=== PATIENT | female | born 1945 | race Caucasian/White ===

== ENCOUNTER → 2020-11-20 09:21 | Outpatient (BNVA) | payer MEDICARE, SELFPAY | PROVIDERS: PCP Internal Medicine; Visit Provider Urology | DX: R31.29 Other microscopic hematuria (principal) | CPT/HCPCS: 99212 ==

== ENCOUNTER 2020-11-22 09:57 | Outpatient (REF) | payer MEDICARE, SELFPAY ==
[2020-11-22 10:00] LABS: MANUAL DIFF FLAG NO
[2020-11-22 10:14] LABS: Basophils Absolute Auto 0.1 X10*3/uL (0.0-0.2); Basophils Percent Auto 1.4 % (0-2); Eosinophils Absolute Auto 0.2 X10*3/uL (0.0-0.4); Eosinophils Percent Auto 2.9 % (0-4); Hematocrit 39.4 % (37-47); Hemoglobin 12.5 g/dl (12.0-16.0); Imm Gran Abs Auto 0.02 X10*3/uL (0.00-0.03); Imm Gran Pct Auto 0.3 % (0.0-0.4); Lymphocytes Absolute Auto 2.3 X10*3/uL (1.2-4.9); Lymphocytes Percent Auto 32.3 % (20-40); Mean Corpuscular HGB Conc 31.7 g/dl (31.0-35.0); Mean Corpuscular Hemoglobin 31.7 pg (27.0-33.0); Mean Platelet Volume 10.5 fL (9.4-12.3); Monocytes Absolute Auto 0.5 X10*3/uL (0.1-1.2); Monocytes Percent Auto 6.8 % (2-11); Neutrophils Absolute Auto 4.1 X10*3/uL (2.0-8.3); Neutrophils Percent Auto 56.3 % (45-73); Platelet Count 237 X10*3/uL (160-400); Red Blood Count 3.94 X10*6/uL (4.20-5.50); Red Cell Distribution Width 12.9 % (11.0-16.0); White Blood Count 7.3 X10*3/uL (4.8-10.8)
[2020-11-22 10:17] LABS: Estimated Average Glucose 111 mg/dL; Hemoglobin A1c % 5.5 %
[2020-11-22 10:39] LABS: Creatinine Urine 140.66 mg/dL; Microalbum/Creatinine Ratio Ur 16.3 ug/mg cr
[2020-11-22 10:44] LABS: Alanine Aminotransferase 13 U/L (0-31); Albumin Level 4.1 g/dL (3.5-5.0); Alkaline Phosphatase 57 U/L (39-117); Anion Gap 13 (12-20); Aspartate Amino Transferase 16 U/L (5-31); Bilirubin Total 0.5 mg/dL (0.0-1.0); Blood Urea Nitrogen 32 mg/dL (9-16); Calcium 9.7 mg/dL (8.4-10.2); Carbon Dioxide 26 mmol/L (22-29); Chloride 110 mmol/L (96-108); Cholesterol 157 mg/dL; Estimated Glomerular Filt Rate 57; Glucose Fasting 114 mg/dL (60-99); HDL Cholesterol 47 mg/dL; LDL Cholesterol Calculated 84 mg/dl; Sodium 145 mmol/L (135-145); Total Protein 6.7 g/dL (6.5-8.0); Triglycerides 130 mg/dL
[2020-11-22 11:31] LABS: Reflex LDLD? No
== END 2020-11-22 09:58 | disposition home or self-care (01) ==
LOC: HO.LNP 09:57
PROVIDERS: Visit Provider Internal Medicine
DX: E78.00 Pure hypercholesterolemia, unspecified (principal); I10 Essential (primary) hypertension; R73.09 Other abnormal glucose; M85.80 Other specified disorders of bone density and structure, unspecified site
CPT/HCPCS: 80053; 80061; 82043; 83036; 85025

== ENCOUNTER 2020-12-27 10:23 | Outpatient (REF) | payer MEDICARE, SELFPAY ==
[2020-12-27 11:16] LABS: Blood Urea Nitrogen 22 mg/dL (9-16); Estimated Glomerular Filt Rate > 60
== END 2020-12-27 10:24 | disposition home or self-care (01) ==
LOC: HO.LNP 10:23
PROVIDERS: Visit Provider Internal Medicine
DX: R79.9 Abnormal finding of blood chemistry, unspecified (principal)
CPT/HCPCS: 82565; 84520

== ENCOUNTER 2021-02-20 08:13 | Outpatient (REF) | payer MEDICARE, SELFPAY ==
--- NOTE | ~2021-02-20 | MM_ITS ---
EXAMINATION: MM SCREENING DIGITAL BREAST TOMOSYNTHESIS, BILATERAL CLINICAL INFORMATION: Screening. Asymptomatic. The lifetime risk of breast cancer based on the Tyrer-Cuzick Model is 2%. COMPARISON: Mammography: 11/05/2018, 10/19/2017, 10/10/2016 TECHNIQUE: Digital breast tomosynthesis is performed in both the craniocaudal and mediolateral oblique views along with computer-aided detection (CAD). Synthesized 2D images are generated from the tomosynthesis. FINDINGS: There are scattered areas of fibroglandular density (ACR BI-RADS breast composition Category b). There are no significant masses, abnormal calcifications, or other abnormalities. There are numerous dermal lesions again seen overlying the posterior inferior breasts, the 2 largest again noted posterior outer inferior left breast. There are no architectural abnormalities. Scattered bilateral vascular and some punctate round density rim and dermal calcifications are again noted. No significant changes. MM/MM tomosynthesis screening BI IMPRESSION: No significant changes from prior exams. ASSESSMENT: BI-RADS 2: Benign RECOMMENDATION: Routine annual mammography screening. This patient's information was entered into a reminder system with a target due date for their next mammogram.
--- NOTE | ~2021-02-20 | MM_ITS ---
EXAMINATION: BONE DENSITOMETRY CLINICAL INDICATION: Osteopenia. COMPARISON: Previous BD dated 05/22/2017 and baseline BD dated 05/17/2010. TECHNIQUE: Using a Atooma DXA System (software version: 13.1) manufactured by [employer], dual-energy x-ray absorptiometry was performed of the lumbar spine and left hip. The images are of good technical quality. Summary results are attached. FINDINGS: AP SPINE L1-L4: Current: BMD 1.229 g/cm2, Z-score 2.1, T-score 0.4, normal, 0.5% increase from previous, 5.6% increase from baseline (<5% change is not significant). Prior: BMD 1.223 g/cm2. Baseline: BMD 1.164 g/cm2. LEFT FEMUR, NECK: Current: BMD 0.752 g/cm2, Z-score -0.1, T-score -2.1, osteopenia. Prior: BMD 0.772 g/cm2. Baseline: BMD 0.762 g/cm2. LEFT FEMUR, TOTAL: Current: BMD 0.927 g/cm2, Z-score 1.1, T-score -0.6, normal, 0.1% increase from previous, 0.2% increase from baseline (<5% change is not significant). Prior: BMD 0.926 g/cm2. Baseline: BMD 0.925 g/cm2. IDENTIFIED RISK FACTORS: Height loss, menopause, hysterectomy, bilateral oophorectomy. HISTORY OF FRACTURE: None listed. MEDICATIONS: Calcium supplements or multivitamin, vitamin D. MM/XR DEXA axial skeleton IMPRESSION: 1. DIAGNOSIS: Osteopenia based on the lowest T-score value of -2.1 in the femoral neck applying World Health Organization criteria. 2. 10-YEAR FRACTURE RISK PREDICTION, FRAX: Major osteoporotic fracture (clinical spine, forearm, hip or shoulder) 14.2%. Hip fracture 3.9%. 3. Treatment Recommendations: NOF guidelines recommend consideration for treatment in postmenopausal women and men age 50 and older presenting with the following: -A hip or vertebral (clinical or morphometric) fracture. -T-score less than or equal to -2.5 at the femoral neck or spine after appropriate evaluation to exclude secondary causes. -Low bone mass at the hip or spine and a 10-year fracture probability by FRAX of greater than or equal to 3% for hip fracture or greater than or equal to 20% for major osteoporotic fracture based on the [place] adapted WHO algorithm. 4. Other Recommendations: All treatment decisions require clinical judgment and consideration of individual patient factors, including patient preferences, comorbidities, previous drug use, risk factors not captured in the FRAX model (e.g. frailty, falls, vitamin D deficiency, increased bone turnover, interval significant decline in bone density) and possible under or overestimation of fracture risk by FRAX. Additional medical evaluation for secondary cause of low bone mineral density may be appropriate. FUTURE SCAN RECOMMENDATION: People with diagnosed cases of osteoporosis or at high risk for fracture should have regular bone mineral density tests. For patients eligible for Medicare, routine testing is allowed once every 2 years. The testing frequency can be increased to one year for patients who have rapidly progressing disease, those who are receiving or discontinuing medical therapy to restore bone mass, or have additional risk factors.
== END 2021-02-20 08:14 | disposition home or self-care (01) ==
LOC: HO.MAMMO 08:13
PROVIDERS: PCP Internal Medicine; Visit Provider Internal Medicine
DX: Z13.820 Encounter for screening for osteoporosis (principal); Z78.0 Asymptomatic menopausal state; M85.89 Other specified disorders of bone density and structure, multiple sites; R79.89 Other specified abnormal findings of blood chemistry; Z12.31 Encounter for screening mammogram for malignant neoplasm of breast; Z90.710 Acquired absence of both cervix and uterus; Z90.722 Acquired absence of ovaries, bilateral
CPT/HCPCS: 77063; 77067; 77080

== ENCOUNTER 2021-05-17 10:06 | Outpatient (REF) | payer MEDICARE, SELFPAY ==
[2021-05-17 10:47] LABS: Alanine Aminotransferase 16 U/L (0-31); Albumin Level 4.1 g/dL (3.5-5.0); Alkaline Phosphatase 59 U/L (39-117); Aspartate Amino Transferase 16 U/L (5-31); Bilirubin Direct 0.2 mg/dL (0.0-0.5); Bilirubin Total 0.3 mg/dL (0.0-1.0); Cholesterol 162 mg/dL; Glucose Fasting 124 mg/dL (60-99); HDL Cholesterol 46 mg/dL; LDL Cholesterol Calculated 86 mg/dl; Total Protein 6.8 g/dL (6.5-8.0); Triglycerides 154 mg/dL
[2021-05-17 11:11] LABS: Reflex LDLD? No
[2021-05-17 14:00] LABS: Estimated Average Glucose 111 mg/dL; Hemoglobin A1c % 5.5 %
== END 2021-05-17 10:07 | disposition home or self-care (01) ==
LOC: HO.LNP 10:06
PROVIDERS: Visit Provider Internal Medicine
DX: R73.03 Prediabetes (principal); E78.00 Pure hypercholesterolemia, unspecified
CPT/HCPCS: 80061; 80076; 82947; 83036

== ENCOUNTER 2021-05-24 10:56 | Outpatient (REF) | payer MEDICARE, SELFPAY ==
[2021-05-24 11:16] LABS: Blood Urea Nitrogen 21 mg/dL (9-16); Estimated Glomerular Filt Rate 57
== END 2021-05-24 10:57 | disposition home or self-care (01) ==
LOC: HO.LNP 10:56
PROVIDERS: PCP Internal Medicine; Visit Provider Internal Medicine
DX: R79.9 Abnormal finding of blood chemistry, unspecified (principal)
CPT/HCPCS: 82565; 84520

== ENCOUNTER 2021-10-07 13:45 | Outpatient (REF) | payer MEDICARE, SELFPAY ==
--- NOTE | ~2021-10-07 | US_ITS ---
EXAMINATION: US RETROPERITONEAL LIMITED (RENAL ONLY) CLINICAL INFORMATION: Other microscopic hematuria. COMPARISON: Renals only ultrasound dated 11/04/2016. CT abdomen and pelvis with by mouth contrast only dated 12/04/2010. TECHNIQUE: Real-time imaging of the kidneys. FINDINGS: RIGHT KIDNEY: 10.0 x 3.7 x 3.5 cm (SAG x AP x TRV). The kidney is normal in size, contour, and echogenicity. Renal cortical thickness is normal. No calculi or focal parenchymal lesions. No hydronephrosis. LEFT KIDNEY: 10.0 x 4.4 x 4.0 cm (SAG x AP x TRV). The kidney is normal in size, contour, and echogenicity. Renal cortical thickness is normal. No calculi or focal parenchymal lesions. No hydronephrosis. US/US retroperitoneal limited IMPRESSION: Unremarkable renal ultrasound.
== END 2021-10-07 13:46 | disposition home or self-care (01) ==
LOC: HO.US 13:45
PROVIDERS: Visit Provider Urology
DX: R31.29 Other microscopic hematuria (principal)
CPT/HCPCS: 76775

== ENCOUNTER 2021-11-19 09:09 | Outpatient (REF) | payer MEDICARE, SELFPAY ==
[2021-11-19 16:55] LABS: Urine Cytology See Pathology rpt
== END 2021-11-19 09:10 | disposition home or self-care (01) ==
LOC: HO.LAB 09:09
PROVIDERS: Visit Provider Urology
DX: R31.29 Other microscopic hematuria (principal)
CPT/HCPCS: 88112; 99212

== ENCOUNTER 2021-11-22 11:12 | Outpatient (REF) | payer MEDICARE, SELFPAY ==
[2021-11-22 11:14] LABS: MANUAL DIFF FLAG NO
[2021-11-22 11:26] LABS: Basophils Absolute Auto 0.1 X10*3/uL (0.0-0.2); Basophils Percent Auto 1.3 % (0-2); Eosinophils Absolute Auto 0.2 X10*3/uL (0.0-0.4); Eosinophils Percent Auto 2.2 % (0-4); Hematocrit 37.6 % (37.0-47.0); Hemoglobin 11.8 g/dl (12.0-16.0); Imm Gran Abs Auto 0.01 X10*3/uL (0.00-0.03); Imm Gran Pct Auto 0.1 % (0.0-0.4); Lymphocytes Absolute Auto 2.5 X10*3/uL (1.2-4.9); Lymphocytes Percent Auto 32.1 % (20-40); Mean Corpuscular HGB Conc 31.4 g/dl (31.0-35.0); Mean Corpuscular Hemoglobin 31.2 pg (27.0-33.0); Mean Corpuscular Volume 99.5 fL (80.0-98.0); Mean Platelet Volume 10.6 fL (9.4-12.3); Monocytes Absolute Auto 0.6 X10*3/uL (0.1-1.2); Monocytes Percent Auto 7.5 % (2-11); Neutrophils Absolute Auto 4.4 x10*3/uL (2.0-8.3); Neutrophils Percent Auto 56.8 % (45-73); Platelet Count 217 X10*3/uL (160-400); Red Blood Count 3.78 X10*6/uL (4.20-5.50); Red Cell Distribution Width 12.9 % (11.0-16.0); White Blood Count 7.8 X10*3/uL (4.8-10.8)
[2021-11-22 11:32] LABS: Appearance Urine CLEAR; Color Urine YELLOW; Glucose Urine UA NEG (NEG); Leukocyte Esterase Urine 1+ (NEG); Nitrite Urine NEG (NEG); Urine Blood 1+ (NEG); Urine Ketones NEG (NEG); Urine Protein NEG (NEG-TRACE)
[2021-11-22 11:43] LABS: Alanine Aminotransferase 13 U/L (0-31); Albumin Level 4.2 g/dL (3.5-5.0); Alkaline Phosphatase 49 U/L (39-117); Anion Gap 12 (12-20); Aspartate Amino Transferase 15 U/L (5-31); Bilirubin Total 0.4 mg/dL (0.0-1.0); Blood Urea Nitrogen 18 mg/dL (9-16); Calcium 9.8 mg/dL (8.4-10.2); Carbon Dioxide 24 mmol/L (22-29); Chloride 110 mmol/L (96-108); Cholesterol 167 mg/dL; Estimated Glomerular Filt Rate 51; Glucose Fasting 114 mg/dL (60-99); HDL Cholesterol 47 mg/dL; LDL Cholesterol Calculated 85 mg/dl; Potassium 4.1 mmol/L (3.3-5.1); Sodium 142 mmol/L (135-145); Total Protein 6.7 g/dL (6.5-8.0); Triglycerides 179 mg/dL
[2021-11-22 12:00] LABS: Bacteria Urine TRACE /LPF; Creatinine Urine 30.36 mg/dL; Microalbum/Creatinine Ratio Ur 16.4 ug/mg cr; WBC Clumps Urine NOTED
[2021-11-22 12:06] LABS: Estimated Average Glucose 108 mg/dL; Hemoglobin A1c % 5.4 %
== END 2021-11-22 11:13 | disposition home or self-care (01) ==
LOC: HO.LNP 11:12
PROVIDERS: PCP Internal Medicine; Visit Provider Internal Medicine
DX: R73.03 Prediabetes (principal); I10 Essential (primary) hypertension; E78.00 Pure hypercholesterolemia, unspecified
CPT/HCPCS: 80053; 80061; 81001; 82043; 83036; 85025

== ENCOUNTER 2022-04-10 08:56 | Outpatient (REF) | payer MEDICARE, SELFPAY ==
--- NOTE | ~2022-04-10 | MM_ITS ---
EXAMINATION: MM SCREENING DIGITAL BREAST TOMOSYNTHESIS, BILATERAL CLINICAL INFORMATION: Screening. Asymptomatic. COMPARISON: Mammography: 02/20/2021, 11/05/2018, 10/19/2017 TECHNIQUE: Digital breast tomosynthesis is performed in both the craniocaudal and mediolateral oblique views along with computer-aided detection (CAD). Synthesized 2D images are generated from the tomosynthesis. FINDINGS: There are scattered areas of fibroglandular density (ACR BI-RADS breast composition Category b). There are no significant masses, abnormal calcifications, or other abnormalities. Parenchymal pattern is similar to prior studies. There are scattered moles again seen overlying both breasts, the 2 largest are posterior outer left breast. The axilla are unremarkable. There are no significant changes from prior studies. MM/MM tomosynthesis screening BI IMPRESSION: No mammographic evidence of malignancy. ASSESSMENT: BI-RADS 2: Benign RECOMMENDATION: Routine annual mammography screening. This patient's information was entered into a reminder system with a target due date for their next mammogram.
== END 2022-04-10 08:57 | disposition home or self-care (01) ==
LOC: HO.MAMMO 08:56
PROVIDERS: PCP Internal Medicine; Visit Provider Internal Medicine
DX: Z12.31 Encounter for screening mammogram for malignant neoplasm of breast (principal)
CPT/HCPCS: 77063; 77067

== ENCOUNTER 2022-05-26 11:16 | Outpatient (REF) | payer MEDICARE, SELFPAY ==
[2022-05-26 11:57] LABS: Alanine Aminotransferase 15 U/L (0-31); Albumin Level 4.1 g/dL (3.5-5.0); Alkaline Phosphatase 58 U/L (39-117); Aspartate Amino Transferase 15 U/L (5-31); Bilirubin Direct 0.2 mg/dL (0.0-0.5); Bilirubin Total 0.5 mg/dL (0.0-1.0); Cholesterol 153 mg/dL; Glucose Fasting 118 mg/dL (60-99); HDL Cholesterol 51 mg/dL; LDL Cholesterol Calculated 81 mg/dl; Total Protein 6.4 g/dL (6.5-8.0); Triglycerides 109 mg/dL
[2022-05-26 12:11] LABS: Estimated Average Glucose 108 mg/dL; Hemoglobin A1c % 5.4 %
[2022-05-26 13:34] LABS: Reflex LDLD? No
== END 2022-05-26 11:17 | disposition home or self-care (01) ==
LOC: HO.LNP 11:16
PROVIDERS: Visit Provider Internal Medicine
DX: R73.03 Prediabetes (principal); E78.00 Pure hypercholesterolemia, unspecified
CPT/HCPCS: 80061; 80076; 82947; 83036

== ENCOUNTER 2022-11-27 10:49 | Outpatient (REF) | payer MEDICARE, SELFPAY ==
[2022-11-27 10:58] LABS: MANUAL DIFF FLAG NO
[2022-11-27 11:40] LABS: Basophils Absolute Auto 0.1 X10*3/uL (0.0-0.2); Basophils Percent Auto 1.2 % (0-2); Eosinophils Absolute Auto 0.2 X10*3/uL (0.0-0.4); Eosinophils Percent Auto 2.6 % (0-4); Hematocrit 37.1 % (37.0-47.0); Hemoglobin 11.8 g/dl (12.0-16.0); Imm Gran Abs Auto 0.03 X10*3/uL (0.00-0.03); Imm Gran Pct Auto 0.4 % (0.0-0.4); Lymphocytes Absolute Auto 1.9 X10*3/uL (1.2-4.9); Lymphocytes Percent Auto 25.3 % (20-40); Mean Corpuscular HGB Conc 31.8 g/dl (31.0-35.0); Mean Corpuscular Hemoglobin 31.4 pg (27.0-33.0); Mean Corpuscular Volume 98.7 fL (80.0-98.0); Mean Platelet Volume 10.5 fL (9.4-12.3); Monocytes Absolute Auto 0.6 X10*3/uL (0.1-1.2); Monocytes Percent Auto 8.2 % (2-11); Neutrophils Absolute Auto 4.8 x10*3/uL (2.0-8.3); Neutrophils Percent Auto 62.3 % (45-73); Platelet Count 228 X10*3/uL (160-400); Red Blood Count 3.76 X10*6/uL (4.20-5.50); Red Cell Distribution Width 13.1 % (11.0-16.0); White Blood Count 7.6 X10*3/uL (4.8-10.8)
[2022-11-27 11:41] LABS: Appearance Urine Clear; Color Urine Yellow; Glucose Urine UA Negative (Negative); Leukocyte Esterase Urine Moderate (2+) (Negative); Nitrite Urine Negative (Negative); PH 5.5 (5.0-9.0); Specific Gravity - Urine 1.015 (1.005-1.025); UMIC TRIGGER UACC YES; Urine Blood Moderate (2+) (Negative); Urine Ketones Negative (Negative); Urine Protein Negative (Neg-Trace)
[2022-11-27 11:51] LABS: Alanine Aminotransferase 11 U/L (0-31); Alkaline Phosphatase 52 U/L (39-117); Anion Gap 14 (12-20); Aspartate Amino Transferase 16 U/L (5-31); Bilirubin Total 0.5 mg/dL (0.0-1.0); Blood Urea Nitrogen 26 mg/dL (9-16); Calcium 10.5 mg/dL (8.4-10.2); Carbon Dioxide 27 mmol/L (22-29); Chloride 108 mmol/L (96-108); Cholesterol 159 mg/dL; Estimated Average Glucose 108 mg/dL; Estimated Glomerular Filt Rate 57; Glucose Fasting 106 mg/dL (60-99); HDL Cholesterol 47 mg/dL; Hemoglobin A1c % 5.4 %; LDL Cholesterol Calculated 84 mg/dl; Potassium 4.2 mmol/L (3.3-5.1); Sodium 145 mmol/L (135-145); Total Protein 6.5 g/dL (6.5-8.0); Triglycerides 143 mg/dL
[2022-11-27 12:04] LABS: Bacteria Urine None Seen (None Seen); Hyaline Casts Urine 0-2 /LPF (0-2); Squamous Epithelial Cell Urine 0-2 /HPF (0-2); WBC Urine 0-5 /HPF (0-5)
[2022-11-27 12:34] LABS: Creatinine Urine 77.77 mg/dL; Microalbum/Creatinine Ratio Ur 14.1 ug/mg cr
== END 2022-11-27 10:50 | disposition home or self-care (01) ==
LOC: HO.LNP 10:49
PROVIDERS: Visit Provider Internal Medicine
DX: R73.03 Prediabetes (principal); I10 Essential (primary) hypertension; E78.00 Pure hypercholesterolemia, unspecified
CPT/HCPCS: 80053; 80061; 81001; 82043; 83036; 85025

== ENCOUNTER 2022-12-01 10:55 | Outpatient (REF) | payer MEDICARE, SELFPAY ==
[2022-12-01 11:24] LABS: Calcium 10.1 mg/dL (8.4-10.2)
== END 2022-12-01 10:56 | disposition home or self-care (01) ==
LOC: HO.LNP 10:55
PROVIDERS: Visit Provider Internal Medicine
DX: E83.52 Hypercalcemia (principal)
CPT/HCPCS: 82310

== ENCOUNTER 2023-04-16 08:38 | Outpatient (REF) | payer MEDICARE, SELFPAY | END 2023-04-16 08:39 | disposition home or self-care (01) | LOC: HO.MAMMO 08:38 | PROVIDERS: PCP Internal Medicine; Visit Provider Internal Medicine | DX: Z12.31 Encounter for screening mammogram for malignant neoplasm of breast (principal) | CPT/HCPCS: 77063; 77067 ==

== ENCOUNTER → 2023-04-16 09:00 | Outpatient (BNV) | payer MEDICARE, SELFPAY | PROVIDERS: PCP Internal Medicine; Visit Provider Radiology Diagnostic Radiology | DX: Z12.31 Encounter for screening mammogram for malignant neoplasm of breast (principal) | CPT/HCPCS: 77063; 77067 ==

== ENCOUNTER 2023-05-22 10:36 | Outpatient (REF) | payer MEDICARE, SELFPAY ==
[2023-05-22 11:28] LABS: Alanine Aminotransferase 14 U/L (0-31); Albumin Level 4.1 g/dL (3.5-5.0); Alkaline Phosphatase 55 U/L (39-117); Aspartate Amino Transferase 19 U/L (5-31); Bilirubin Direct 0.2 mg/dL (0.0-0.5); Bilirubin Total 0.4 mg/dL (0.0-1.0); Cholesterol 145 mg/dL (<200); Glucose Fasting 108 mg/dL (60-99); HDL Cholesterol 50 mg/dL (>40); LDL Cholesterol Calculated 79 mg/dL (<100); Triglycerides 82 mg/dL (<150)
[2023-05-22 11:36] LABS: Estimated Average Glucose 111 mg/dL; Hemoglobin A1c % 5.5 % (<6.0)
[2023-05-22 11:55] LABS: Reflex LDLD? No
== END 2023-05-22 10:37 | disposition home or self-care (01) ==
LOC: HO.LNP 10:36
PROVIDERS: Visit Provider Internal Medicine
DX: R73.09 Other abnormal glucose (principal)
CPT/HCPCS: 80061; 80076; 82947; 83036

== ENCOUNTER 2023-11-30 11:34 | Outpatient (REF) | payer MEDICARE, SELFPAY ==
[2023-11-30 11:37] LABS: MANUAL DIFF FLAG NO
[2023-11-30 11:42] LABS: Basophils Absolute Auto 0.1 X10*3/uL (0.0-0.2); Basophils Percent Auto 1.4 % (0-2); Eosinophils Absolute Auto 0.2 X10*3/uL (0.0-0.4); Eosinophils Percent Auto 2.6 % (0-4); Hematocrit 35.2 % (37.0-47.0); Hemoglobin 11.7 g/dl (12.0-16.0); Imm Gran Abs Auto 0.02 X10*3/uL (0.00-0.03); Imm Gran Pct Auto 0.3 % (0.0-0.4); Lymphocytes Absolute Auto 1.9 X10*3/uL (1.2-4.9); Lymphocytes Percent Auto 27.3 % (20-40); Mean Corpuscular HGB Conc 33.2 g/dl (31.0-35.0); Mean Corpuscular Hemoglobin 32.3 pg (27.0-33.0); Mean Corpuscular Volume 97.2 fL (80.0-98.0); Monocytes Absolute Auto 0.6 X10*3/uL (0.1-1.2); Monocytes Percent Auto 8.7 % (2-11); Neutrophils Absolute Auto 4.1 x10*3/uL (2.0-8.3); Neutrophils Percent Auto 59.7 % (45-73); Platelet Count 237 X10*3/uL (160-400); Red Blood Count 3.62 X10*6/uL (4.20-5.50); Red Cell Distribution Width 13.2 % (11.0-16.0); White Blood Count 6.9 X10*3/uL (4.8-10.8)
[2023-11-30 11:52] LABS: Alanine Aminotransferase 15 U/L (0-31); Albumin Level 4.1 g/dL (3.5-5.0); Alkaline Phosphatase 49 U/L (39-117); Anion Gap 15 (12-20); Aspartate Amino Transferase 17 U/L (5-31); Bilirubin Total 0.5 mg/dL (0.0-1.0); Blood Urea Nitrogen 25 mg/dL (9-16); Calcium 10.7 mg/dL (8.4-10.2); Carbon Dioxide 23 mmol/L (22-29); Chloride 110 mmol/L (96-108); Cholesterol 164 mg/dL (<200); Estimated Glomerular Filt Rate 52; Glucose Fasting 111 mg/dL (60-99); HDL Cholesterol 46 mg/dL (>40); LDL Cholesterol Calculated 90 mg/dL (<100); Potassium 4.1 mmol/L (3.3-5.1); Sodium 144 mmol/L (135-145); Triglycerides 142 mg/dL (<150)
[2023-11-30 12:10] LABS: Appearance Urine Clear; Color Urine Yellow; Glucose Urine UA Negative (Negative); Leukocyte Esterase Urine Moderate (2+) (Negative); Nitrite Urine Negative (Negative); PH 5.5 (5.0-9.0); Specific Gravity - Urine 1.015 (1.005-1.025); UMIC TRIGGER UACC YES; Urine Blood Small (1+) (Negative); Urine Ketones Negative (Negative); Urine Protein Negative (Neg-Trace)
[2023-11-30 12:29] LABS: Bacteria Urine None Seen (None Seen); Hyaline Casts Urine 0-2 /LPF (0-2); RBC Urine 0-2 /HPF (0-2); Squamous Epithelial Cell Urine 0-2 /HPF (0-2); WBC Urine 0-5 /HPF (0-5)
== END 2023-11-30 11:35 | disposition home or self-care (01) ==
LOC: HO.LNP 11:34
PROVIDERS: Visit Provider Internal Medicine
DX: R73.09 Other abnormal glucose (principal); E78.00 Pure hypercholesterolemia, unspecified; I10 Essential (primary) hypertension
CPT/HCPCS: 80053; 80061; 81001; 85025

== ENCOUNTER 2023-12-07 15:31 | Outpatient (REF) | payer MEDICARE, SELFPAY ==
[2023-12-07 16:15] LABS: TSH reflex Free T4 1.89 uIU/mL (0.32-4.0)
== END 2023-12-07 15:32 | disposition home or self-care (01) ==
LOC: HO.LNP 15:31
PROVIDERS: Visit Provider Internal Medicine
DX: R53.83 Other fatigue (principal)
CPT/HCPCS: 84443

== ENCOUNTER 2024-04-21 08:07 | Outpatient (REF) | payer MEDICARE, SELFPAY ==
--- NOTE | ~2024-04-21 | MM_ITS ---
EXAMINATION: MM SCREENING DIGITAL BREAST TOMOSYNTHESIS, BILATERAL CLINICAL INFORMATION: Screening. Asymptomatic. COMPARISON: Mammography: Comparison is made with available priors TECHNIQUE: Digital breast mammography with tomosynthesis is performed in both the craniocaudal and mediolateral oblique views along with computer-aided detection (CAD). FINDINGS: There are scattered areas of fibroglandular density (ACR BI-RADS breast composition Category b). There are no significant masses, abnormal calcifications, or other abnormalities. MM/MM tomosynthesis screening BI IMPRESSION: No mammographic evidence of malignancy. ASSESSMENT: BI-RADS BI-RADS 1 - Negative RECOMMENDATION: Routine annual mammography screening. 1 year F/U This examination should not preclude the clinical evaluation of a suspicious palpable abnormality. This patient's information was entered into a reminder system with a target due date for their next mammogram. Electronically signed by: Anneliese Garcia DO 04/29/2024 09:14 AM NICOLE
== END 2024-04-21 08:08 | disposition home or self-care (01) ==
LOC: HO.MAMMO 08:07
PROVIDERS: PCP Internal Medicine; Visit Provider Internal Medicine
DX: Z12.31 Encounter for screening mammogram for malignant neoplasm of breast (principal)
CPT/HCPCS: 77063; 77067

== ENCOUNTER → 2024-04-21 08:30 | Outpatient (BNV) | payer MEDICARE, SELFPAY | PROVIDERS: PCP Internal Medicine; Visit Provider Internal Medicine | DX: Z12.31 Encounter for screening mammogram for malignant neoplasm of breast (principal) | CPT/HCPCS: 77063; 77067 ==

== ENCOUNTER 2024-06-10 11:02 | Outpatient (REF) | payer MEDICARE, SELFPAY ==
[2024-06-10 11:50] LABS: Alanine Aminotransferase 18 U/L (0-31); Albumin Level 3.9 g/dL (3.5-5.0); Alkaline Phosphatase 54 U/L (39-117); Aspartate Amino Transferase 26 U/L (5-31); Bilirubin Direct 0.1 mg/dL (0.0-0.5); Bilirubin Total 0.4 mg/dL (0.0-1.0); Blood Urea Nitrogen 26 mg/dL (9-16); Cholesterol 157 mg/dL (<200); Estimated Glomerular Filt Rate 40; HDL Cholesterol 45 mg/dL (>40); LDL Cholesterol Calculated 89 mg/dL (<100); Total Protein 6.6 g/dL (6.5-8.0); Triglycerides 118 mg/dL (<150)
--- OUTSIDE RECORDS SUMMARY | 2024-06-10 12:52 | XMS_ITS ---
Author Organization Ruddy Solorio MD Address [address] [place] [phone] Care Team Providers Care Construction Carpenter Name Role Phone Ruddy Solorio Primary Care Provider ALLERGIES No Known Allergies RESULTS Component Value Reference Range Notes TSH reflex Free T4 Reviewed date:12/08/2023 12:45:58 PM Interpretation: Performing Lab:[facility], [address] [place] [phone] Notes/Report: TSH reflex Free T4 1.89 0.32-4.0 uIU/mL REASON FOR VISIT review labs, c/o neck pain x 1 month and fatigue MEDICATIONS Medication SIG (Take, Route, Fr equency, Duration) Notes Start Date End Date Status Ibuprofen 800 MG 1 tablet with food o r milk Orally Three times a day for 30 day(s) 01/19/2017 Not-Taking Simvastatin 20 MG 1 tablet every eveni ng Orally Once a day for 90 days Active SOCIAL HISTORY Tobacco Use: Social History Observation Description Date Details (start date - stop date) Never Smoker NA - NA Sex Assigned At : Social History Observation Description Sex Assigned At Unknown Tobacco Use/Smoking Question Answer Notes Patient is a nonsmoker Additional Findings: Tobacco Non-User Cu rrent non-smoker, currently using no form of tobacco Alcohol Screen Question Answer Notes Did you have a drink containing alcohol in the p ast year? No Points 0 Interpretation Negative VITAL SIGNS BMI 29.68 kg/m2 12/07/2023 Blood pressure systolic 152 mm Hg 12/07/19 24 Blood pressure diastolic 60 mm Hg 024 Height 60 in 12/07/2023 Weight 152 lbs 12/07/2023 weight is up 2 pounds since 05-28-23 Encounters Encounter Location Date Provider Diagnosis Ruddy Solorio MD [address] [place] [address] [place] [phone] 12/07/2023 Ruddy Solorio History of hematuria Z87.448 ; Essential hypertension I10 ; Hypercalcemia E83.52 and Lethargy R53.83 ASSESSMENTS Encounter Date Diagnosis Assessment Notes Treatment Notes Treatment Clinical Notes 12/07/2023 History of hematuria (ICD-10 - Z87.448) has been evaluated in past 12/07/2023 Essential hypertension (ICD-10 - I10) doing well 12/07/2023 Hypercalcemia (ICD-1 0 - E83.52) stablde 12/07/2023 Lethargy (ICD-10 - R53.83) PLAN OF TREATMENT Treatment Notes Assessment Notes History of hematuria has been evaluated in past Essential hypertension doing well Hypercalcemia stablde Pending Test Test Name Order Date Blood Urea Nitrogen 12/07/2023 Creatinine 12/07/2023 Calcium 12/07/2023 Next Appt Details Follow Up: 6 Months, Reason: Provider Name:Ruddy bunn, 06/17/2024 10:45:00 AM, [address] [place] [address], [address] [place] [address], [phone], Provider Name:Ruddy bunn, 11/29/2024 07:30:00 AM, [address] [place] [address], [address], [phone], Provider Name:Ruddy bunn, 12/12/2024 10:30:00 AM, [address] [place] [address], [address], [phone], Progress Notes * Examination Category Sub-Category Detail Notes General Examination GENERAL APPEARANCE: alert, w ell [...] EXAM: no masses palpable, stool guaiac negative History and Physical Notes * HPI (History of Present Illness) Category Sub-Category Detail Notes Depression Screening PHQ-9 Little inte rest or [...] Have you had any falls with injury in the past year?: No Have you had two or more falls in the [facility] year?: No Communication Needs Communication Needs Does the patient have a hearing impairment: No Does the patient have a vision impairmen t?: Yes ?If yes, what is the vision impairment?: Glasses Does the patient have a cognition impair ment?: No
--- OUTSIDE RECORDS SUMMARY | 2024-06-10 12:52 | XMS_ITS ---
Author Organization Ruddy Solorio MD Address [address] [place] [phone] Care Team Providers Care General Activities Therapist Name Role Phone LyndseyMariselan Primary Care Provider [phone] REASON FOR VISIT fasting lipids, bun,creatine calcuim Encounters Encounter Location Date Provider Diagnosis uRddy Solorio MD [address] [place] [phone] 06/10/2024 Ruddy Solorio Essential hypertensi on I10 ; Hypercalcemia E83.52 and Pure hypercholesterolemia E78.00 ASSESSMENTS Encounter Date Diagnosis Assessment Notes Treatment Notes Treatment Clinical Notes 06/10/2024 Essential hypertensi on (ICD-10 - I10) 06/10/2024 Hypercalcemia (ICD-1 0 - E83.52) 06/10/2024 Pure hypercholestero lemia (ICD-10 - E78.00) PLAN OF TREATMENT Pending Test Test Name Order Date Liver Panel 06/10/2024 Lipid Panel with Reflex 06/10/2024 Blood Urea Nitrogen 06/10/2024 Creatinine 06/10/2024 Calcium 06/10/2024 Next Appt Details Provider Name:Ruddy Maxwellashanti bunn, 06/17/2024 10:45:00 AM, [address] [facility], [address], [place], [phone], Provider Name:Ruddy Nath Eve bunn, 11/29/2024 07:30:00 AM, [address] [facility], [address], [place], [phone], Provider Name:Ruddy Pham Eve bunn, 12/12/2024 10:30:00 AM, [address] [facility], [address], [place], [phone],
--- OUTSIDE RECORDS SUMMARY | 2024-06-10 12:53 | XMS_ITS | Patient Health Record ---
Author Organization Ruddy Solorio MD Address [address] [place] [phone] Care Team Providers Care Psychologist Chief Name Role Phone Lyndsey Ruddy Primary Care Provider ALLERGIES No Known Allergies RESULTS Component Value Reference Range Notes Complete Blood Count Auto Di ff Reviewed date:11/30/2023 05:16:33 PM Interpretation: Performing Lab:[facility], [address] [place] [phone] Notes/Report: White Blood Count 6.9 4.8-10.8 X10*3/uL [...] NRBC Abs Auto 0.000 0.0-0.012 X10*3/uL Comprehensive [place]. Panel Fa st Reviewed date:11/30/2023 05:20:31 PM Interpretation: Performing Lab:[facility], [address] [place] [phone] Notes/Report: Sodium 144 135-145 mmol/L Potassium 4.1 3.3-5.1 mmol/L Chloride 110 96-108 mmol/L Carbon Dioxide 23 22-29 mmol/L Anion Gap 15 12-20 Blood Urea Nitrogen 25 9-16 mg/dL Creatinine 1.03 0.5-1.4 mg/dL Estimated Glomerular Filt Rate 52 NOTE: For -Omani individuals, multiply the result by 1.210. Chronic [...] Panel Reviewed date:11/30/2023 05:12:14 PM Interpretation: Performing Lab:[facility], [address] [place] [phone] Notes/Report: Triglycerides 142 <150 mg/dL Desirable Triglyceride: [...] t Reviewed date:11/30/2023 05:18:22 PM Interpretation: Performing Lab:[facility], [address] [place] [phone] Notes/Report: Urine, Clean Catch Color Urine Yellow Appearance Urine Clear PH 5.5 5.0-9.0 Glucose Urine UA Negative Negative mg/dL Urine Blood Small (1+) Negative Specific [place] - Urine 1.015 1.005-1.025 Urine Protein Negative Neg-Trace mg/dL Urine Ketones Negative Negative mg/dL Nitrite Urine Negative Negative Leukocyte Esterase Urine Moderate (2+) Negative RBC Urine 0-2 0-2 /HPF WBC Urine 0-5 0-5 /HPF Squamous Epithelial Cell Urine 0-2 0-2 /HPF Bacteria Urine None Seen None Seen Hyaline Casts Urine 0-2 0-2 /LPF Hold Gold Reviewed date:12/07/2023 04:14:57 PM Interpretation: Performing Lab:[facility], [address] [place] [phone] Notes/Report: Hold Gold See Note Specimen held untested for 24 hours; Call to request Chemistry testing. TSH reflex Free T4 Reviewed date:12/08/2023 12:45:58 PM Interpretation: Performing Lab:[facility], [address] [place] [address] Notes/Report: TSH reflex Free T4 1.89 0.32-4.0 uIU/mL MM tomosynthesis screening B I Reviewed date:04/29/2024 04:46:48 PM Interpretation: Performing Lab: Notes/Report: [facility] [address] [place] [address] Mammography Report Signed Patient: Melia Hardin MR#: [id number] : 1945 Acct:[id number] Age/Sex: 79 / F ADM Date: 04/21/24 Loc: HO.MAMMO Attending Dr: Ruddy Solorio MD Ordering Physician: Ruddy Solorio MD Results: 1Ne gative Date of Service: 04/21/24 Follow Up: 1 Year From [facility] Mammogram Procedure(s): MM tomosynthesis screening BI Accession Number(s): [id number] cc: Ruddy Solorio MD EXAMINATION: MM SCREENING DIGITAL BREAST TOMOSYNTHESIS, BILATERAL CLINICAL INFORMATION: Screening. Asymptomatic. COMPARISON: Mammography: Comparison is made with available priors TECHNIQUE: Digital breast mammography with tomosynthesis is performed in both the craniocaudal and mediolateral oblique views along with computer-aided detection (CAD). FINDINGS: There are scattered areas of fibroglandular density (ACR BI-RADS breast composition Category b). There are no significant masses, abnormal calcifications, or other abnormalities. MM/MM tomosynthesis screening BI IMPRESSION: No mammographic evidence of malignancy. ASSESSMENT: BI-RADS BI-RADS 1 - Negative RECOMMENDATION: Routine annual mammography screening. 1 year F/U This examination should not preclude the clinical evaluation of a suspicious palpable abnormality. This patient's information was entered into a reminder system with a target due date for their next mammogram. Electronically signed by: Anneliese Garcia DO 04/29/2024 09:14 AM [facility] Dictated By: Anneliese Garcia DO Signed By: <Electronically signed by Anneliese Garcia DO in OV> 04/29/24913 DD/ 9 TD/TT: 04/21/24834 Copy Reader: Jean Santiago Reviewed date:06/10/2024 11:17:03 AM Interpretation: Performing Lab:[facility], [address] [place] [phone] Notes/Report: Jean Santiago See Note Specimen held untested for 24 hours; Call to request Chemistry testing. REASON FOR REFERRAL No Information MEDICATIONS Medication SIG (Take, Route, Fr equency, Duration) Notes Start Date End Date Status Ibuprofen 800 MG 1 tablet with food o r milk Orally Three times a day for 30 day(s) 01/19/2017 Not-Taking Simvastatin 20 MG 1 tablet every eveni ng Orally Once a day for 90 days Active IMMUNIZATIONS Vaccine Route Administration Date Status Comme nts Flu Vaccine IM Intramuscular 03/10/2011 Administered Flu Vaccine Unknown 03/03/2012 Administered [facility] PPSV23 (Pnemovax) Unknown 03/03/2012 Administered TDaP IM Intramuscular 07/05/2012 Administered Flu Vaccine IM Intramuscular 03/01/2013 [facility] 13 IM Intramuscular 08/22/2013 Administered Flu Vaccine IM Intramuscular 02/17/2014 Administered [facility] Fluarix Quadrivalent Unknown 02/17/2014 [facility] Shing[facility] Unknown 02/27/2013 Administered Flu Vaccine IM Intramuscular 03/09/2015 Administered pt re cieved high dose flu vaccine at [facility] Flu Vaccine IM Intramuscular 03/12/2016 Administered Fluarix Quadrivalent Unknown 03/30/2017 Administered [facility] PPSV23 (Pnemovax) IM Intramuscular 10/19/2017 Administered Flu Vaccine IM Intramuscular 02/22/2018 Administered Pt wa s given the high dose flu vaccine at [facility]. Fluarix Quadrivalent Unknown 03/14/2019 Administered [facility] Influenza High Dose Unknown 03/06/2020 Administered [facility] Covid Vaccine Unknown 09/12/2020 Administered [facility] SARS-COV-2 Pfizer Unknown 06/10/2021 Administered Influenza High Dose Unknown 03/05/2021 Administered Fluarix Quadrivalent Unknown 03/04/2022 Administered Shingrix Unknown 05/12/2019 Refused SOCIAL HISTORY Tobacco Use: Social History Observation [...] ast year? No Points 0 Interpretation Negative PROBLEMS Problem Type ICD Code Onset Dates Problem Status W/U Status Risk SNOMED Code Notes Problem Hypercalcemia (E83.52) Active confirmed Hypercalcemia (48803958) Problem Osteopenia (M85.80) Active confirmed 31 4738025 Problem Essential hypertensi on (I10) Active confirmed 08575764 Problem Prediabetes (R73.09) Active confirmed 9 642769 Problem History of hematuria (Z87.448) Active confirmed 239251422 Problem Sciatica of left shayna e (M54.32) Active confirmed 89996336 Problem Right sided sciatica (M54.31) Active confirmed Sciatica (44967412) Problem Pure hypercholesterolemia (E78.00) Active confirmed 472782931 VITAL SIGNS Blood pressure diastolic 60 mm Hg 12/07/2023 [place] ght is up 2 pounds since 05-28-23 Height 60 in 12/07/2023 weight is up 2 pounds since 05-28-23 Blood pressure systolic 152 mm Hg 12/07/2023 [place] ht is up 2 pounds since 05-28-23 Weight 152 lbs 12/07/2023 weight is up 2 pounds since 05-28-23 BMI 29.68 kg/m2 12/07/2023 weight is up 2 pounds since 05-28-23 Encounters Encounter Location Date Provider Diagnosis Ruddy Solorio MD [address] [place], [place] [phone] 12/07/2023 Ruddy Solorio History of hematuria Z87.448 ; Essential hypertension I10 ; Hypercalcemia E83.52 and Lethargy R53.83 Ruddy Solorio MD [address] [place] [id number] 11/30/2023 Ruddy Solorio Prediabetes R73.09 ; Essential hypertension I10 and Pure hypercholesterolemia E78.00 Ruddy Solorio MD [address] [place], [place] [id number] 06/10/2024 Ruddy Solorio Essential hypertensi on I10 ; Hypercalcemia E83.52 and Pure hypercholesterolemia E78.00 Ruddy Solorio MD [address] [facility] [address] [place], [place] [phone] 11/23/2023 Ruddy Solorio Pure hypercholestero lemia E78.00 ASSESSMENTS Encounter Date Diagnosis Assessment Notes Treatment Notes Treatment Clinical Notes 12/07/2023 Essential hypertensi on (ICD-10 - I10) doing well 12/07/2023 History of hematuria (ICD-10 - Z87.448) has been evaluated in past 11/30/2023 Essential hypertensi on (ICD-10 - I10) 11/30/2023 Prediabetes (ICD-10 - R73.09) 06/10/2024 Essential hypertensi on (ICD-10 - I10) 11/23/2023 Pure hypercholestero lemia (ICD-10 - E78.00) 12/07/2023 Hypercalcemia (ICD-1 0 - E83.52) stablde 11/30/2023 Pure hypercholestero lemia (ICD-10 - E78.00) 06/10/2024 Hypercalcemia (ICD-1 0 - E83.52) 12/07/2023 Lethargy (ICD-10 - R53.83) 06/10/2024 Pure hypercholestero lemia (ICD-10 - E78.00) PLAN OF TREATMENT Pending Test Test Name Order Date CT Scan : Abdomen and Pelvis with contra st 12/30/2010 Electrocardiogram (EKG) 09/28/2015 Electrocardiogram (EKG) 10/29/2018 Liver Panel 06/10/2024 Lipid Panel with Reflex 06/10/2024 XR DEXA axial skeleton 11/29/2020 Blood Urea Nitrogen 06/10/2024 Creatinine 06/10/2024 Calcium 06/10/2024 Next Appt Details Provider Name:Ruddy bunn, 06/17/2024 10:45:00 AM, [address], [address], [place], [place], [phone], Provider Name:Ruddy bunn, 11/29/2024 07:30:00 AM, [address], [address], [place], [place], [phone], Provider Name:Ruddy Prado brycer, 12/12/2024 10:30:00 AM, [address], [address], [place], [place], [phone], Insurance Providers Payer Name Payer Address Payer Phone Subscriber Number Group Number Insured Name Patient Relationship to Insured Coverage Start Date Coverage End Date MEDICARE NHIC [address] [place] [address] [id number] Melia Hardin Self - patient is the insured [employer] OF [facility] [address] [place] [address] [id number] Melia Hardin Self - patient is the insured MEDICAL (GENERAL) HISTORY Medical History History ICD Code hematuria work up colonoscopy 2005 due in 10 y ears; colonoscopy w/CT Colonography done by Dr. Day 08/24/17 Hysterectomy 12-27-1991 Surgical History Surgery Date(Month/Year) Total Hysterctomy and Appendectomy 1992
--- OUTSIDE RECORDS SUMMARY | 2024-06-10 12:53 | XMS_ITS ---
Author Organization Ruddy Solorio MD Address [address] [place] [phone] Care Team Providers Care Special Delivery Clerk Name Role Phone Ruddy Solorio Primary Care Provider RESULTS Component Value Reference Range Notes Complete Blood Count Auto Di ff Reviewed date:11/30/2023 05:16:33 PM Interpretation: Performing Lab:[facility], [address] [place] [phone] Notes/Report: White Blood Count 6.9 4.8-10.8 X10*3/uL [...] NRBC Abs Auto 0.000 0.0-0.012 X10*3/uL Comprehensive [place]. Panel Fa st Reviewed date:11/30/2023 05:20:31 PM Interpretation: Performing Lab:[facility], [address] [place] [phone] Notes/Report: Sodium 144 135-145 mmol/L Potassium 4.1 3.3-5.1 mmol/L Chloride 110 96-108 mmol/L Carbon Dioxide 23 22-29 mmol/L Anion Gap 15 12-20 Blood Urea Nitrogen 25 9-16 mg/dL Creatinine 1.03 0.5-1.4 mg/dL Estimated Glomerular Filt Rate 52 NOTE: For -Emirati individuals, multiply the result by 1.210. Chronic [...] Panel Reviewed date:11/30/2023 05:12:14 PM Interpretation: Performing Lab:[facility], [address] [place] [phone] Notes/Report: Triglycerides 142 <150 mg/dL Desirable Triglyceride: [...] t Reviewed date:11/30/2023 05:18:22 PM Interpretation: Performing Lab:[facility], [address] [place] [phone] Notes/Report: Urine, Clean Catch Color Urine Yellow Appearance Urine Clear PH 5.5 5.0-9.0 Glucose Urine UA Negative Negative mg/dL Urine Blood Small (1+) Negative Specific [place] - Urine 1.015 1.005-1.025 Urine Protein Negative [...] Location Date Provider Diagnosis Ruddy Solorio MD [address] [place] [address] Drive [address] [place], [place] [phone] 11/30/2023 Ruddy Solorio Prediabetes R73.09 ; Essential hypertension I10 and Pure hypercholesterolemia E78.00 ASSESSMENTS Encounter Date Diagnosis Assessment Notes Treatment Notes Treatment Clinical Notes 11/30/2023 Prediabetes (ICD-10 - R73.09) 11/30/2023 Essential hypertensi on (ICD-10 - I10) 11/30/2023 Pure hypercholestero lemia (ICD-10 - E78.00) PLAN OF TREATMENT Next Appt Details Provider Name:Ruddy bunn, 06/17/2024 10:45:00 AM, [address] [place] [address], [address] [place] [address], [phone], Provider Name:Ruddy bunn, 11/29/2024 07:30:00 AM, [address] [place] [address], Suite [facility], [place], [place], [phone], Provider Name:Ruddy bunn, 12/12/2024 10:30:00 AM, [address] [place] [address], Suite [facility], [place], [phone],
[2024-06-10 12:59] LABS: Reflex LDLD? No
== END 2024-06-10 11:03 | disposition home or self-care (01) ==
LOC: HO.LNP 11:02
PROVIDERS: Visit Provider Internal Medicine
DX: E78.00 Pure hypercholesterolemia, unspecified (principal); I10 Essential (primary) hypertension; E83.52 Hypercalcemia
CPT/HCPCS: 80061; 80076; 82310; 82565; 84520

== ENCOUNTER 2024-11-29 10:48 | Outpatient (REF) | payer MEDICARE, SELFPAY ==
[2024-11-29 10:51] LABS: MANUAL DIFF FLAG NO
[2024-11-29 11:08] LABS: Basophils Absolute Auto 0.1 X10*3/uL (0.0-0.2); Basophils Percent Auto 1.8 % (0-2); Eosinophils Absolute Auto 0.2 X10*3/uL (0.0-0.4); Eosinophils Percent Auto 2.2 % (0-4); Hematocrit 36.2 % (37.0-47.0); Hemoglobin 11.5 g/dl (12.0-16.0); Imm Gran Abs Auto 0.02 X10*3/uL (0.00-0.03); Imm Gran Pct Auto 0.3 % (0.0-0.4); Lymphocytes Absolute Auto 2.4 X10*3/uL (1.2-4.9); Mean Corpuscular HGB Conc 31.8 g/dl (31.0-35.0); Mean Corpuscular Hemoglobin 31.3 pg (27.0-33.0); Mean Corpuscular Volume 98.4 fL (80.0-98.0); Monocytes Absolute Auto 0.6 X10*3/uL (0.1-1.2); Monocytes Percent Auto 8.1 % (2-11); Neutrophils Percent Auto 54.6 % (45-73); Platelet Count 258 X10*3/uL (160-400); Red Blood Count 3.68 X10*6/uL (4.20-5.50); Red Cell Distribution Width 13.4 % (11.0-16.0); White Blood Count 7.3 X10*3/uL (4.8-10.8)
[2024-11-29 11:09] LABS: Appearance Urine Clear; Color Urine Yellow; Glucose Urine UA Negative (Negative); Leukocyte Esterase Urine Moderate (2+) (Negative); Nitrite Urine Negative (Negative); PH 5.5 (5.0-9.0); Specific Gravity - Urine 1.015 (1.005-1.025); UMIC TRIGGER UACC YES; Urine Blood Trace (Negative); Urine Ketones Negative (Negative); Urine Protein Negative (Neg-Trace)
[2024-11-29 11:19] LABS: Estimated Average Glucose 111 mg/dL; Hemoglobin A1c % 5.5 % (<6.0)
[2024-11-29 11:23] LABS: Alanine Aminotransferase 15 U/L (0-31); Albumin Level 4.2 g/dL (3.5-5.0); Alkaline Phosphatase 51 U/L (39-117); Anion Gap 12 (12-20); Aspartate Amino Transferase 23 U/L (5-31); Bilirubin Total 0.5 mg/dL (0.0-1.0); Blood Urea Nitrogen 34 mg/dL (9-16); Calcium 10.4 mg/dL (8.4-10.2); Carbon Dioxide 25 mmol/L (22-29); Chloride 111 mmol/L (96-108); Cholesterol 156 mg/dL (<200); Estimated Glomerular Filt Rate 40; Glucose Fasting 124 mg/dL (60-99); HDL Cholesterol 47 mg/dL (>40); LDL Cholesterol Calculated 88 mg/dL (<100); Potassium 4.1 mmol/L (3.3-5.1); Sodium 144 mmol/L (135-145); Total Protein 6.7 g/dL (6.5-8.0); Triglycerides 106 mg/dL (<150)
[2024-11-29 11:25] LABS: Bacteria Urine None Seen (None Seen); Hyaline Casts Urine 0-2 /LPF (0-2); RBC Urine 0-2 /HPF (0-2); Squamous Epithelial Cell Urine 0-2 /HPF (0-2); UACC Culture Trigger YES; WBC Urine 0-5 /HPF (0-5)
[2024-11-29 12:05] LABS: Creatinine Urine 86.19 mg/dL; Microalbum/Creatinine Ratio Ur 23.2 ug/mg cr (<30)
--- OUTSIDE RECORDS SUMMARY | 2024-11-29 12:12 | XMS_ITS | Patient Health Record ---
Author Organization [facility] Address [address] [place] [address] Care Team Providers Care Residential Builder Name Role Phone Ruddy Solorio MD Primary Care Provider Patricio Harris Unavailable [phone] Reason For Referral No Information Medications Medication SIG (Take, Route, Frequency, Duration) Notes Start Date End Date Status Calcium 600 + Minerals 600-200 MG-UNIT 1 tablet with food Orally Twice a day for 30 day(s) Active Multi Vitamin/Minerals as directed Orally Active Simvastatin 20 MG 1 tablet in the even ing Orally Once a day for 30 day(s) Active Problems Problem Type SNOMED Code ICD Code Onset Dates Problem Status W/U Status Risk Notes Problem Onychomycosis (771924836) Onychomycosis (110.1) Active confirmed Problem Hallux valgus (925078388) Hallux Valgus (735.0) Active confirmed Problem Ingrowing Nail (703.0) Active confirmed Plan Of Treatment Pending Test Test Name Order Date [id number] Plate 06/17/2012 Insurance Providers Payer Name Payer Address Payer Phone Subscriber Number Group Number Insured Name Patient Relationship to Insured Coverage Start Date Coverage End Date Medicare [employer] [facility] [address] [place] [address] [id number] Melia Hardin Self - patient is the insured [employer] [address] [place] [address] [id number] Melia Hardin Self - patient is the insured Medical (General) History Medical History History ICD Code broken bones cholesterol cataracts glaucoma measles mumps chicken pox Surgical History Surgery Date(Month/Year) hysterectomy 12/1991
== END 2024-11-29 10:49 | disposition home or self-care (01) ==
LOC: HO.LNP 10:48
PROVIDERS: Visit Provider Internal Medicine
DX: I10 Essential (primary) hypertension (principal); E78.00 Pure hypercholesterolemia, unspecified; R73.09 Other abnormal glucose
CPT/HCPCS: 80053; 80061; 81001; 82043; 82570; 83036; 85025; 87086

== ENCOUNTER 2024-12-12 15:53 | Outpatient (REF) | payer MEDICARE, SELFPAY ==
--- OUTSIDE RECORDS SUMMARY | 2024-12-12 06:30 | XMS_ITS ---
Author Organization Ruddy Solorio MD Address [address] [place] [phone] Care Team Providers Care Safe And Vault Installer Name Role Phone Ruddy Solorio Primary Care Provider [phone] Allergies No Known Allergies REASON FOR VISIT comp visit/ must Comp [...] Date Provider Diagnosis Ruddy Solorio MD [address] [place] [address] [place] [phone] 12/12/2024 Ruddy Solorio Elevated BUN R79.9 ; [...] hypertension stable, will cont inue to monitor Pending Test Test Name Order Date Blood Urea Nitrogen 12/12/2024 Creatinine 12/12/2024 Calcium 12/12/2024 Next Appt Details Provider Name:Ruddy bunn, 02/13/2025 07:00:00 AM, [address] [place] [address], [address] [place] [address], [phone], Provider Name:Ruddy bunn, 02/20/2025 01:45:00 PM, [address] [place] [address], [address], [phone], Provider Name:Ruddy bunn, 12/07/2025 07:45:00 AM, [address] [place] [address], [address], [phone], Provider Name:Ruddy bunn, 12/14/2025 09:30:00 AM, [address] [facility], [address], [place], [phone], Progress Notes * Nicci HARDINOB: 4 (79 yo F)Acc No.[id number]:12/12/2024 Patient: Melia ST Provider: Ben Solorio MD :1945 A ge:79 Y S ex:Female Date:12/12/2024 Address:[address] [place], [place] [address]pos [id number] Subjective: * Chief Complaints: * 1 . comp visit/ must Comp meta. * HPI: D epression Screening: PHQ-9 L [...] d enies. H eadache?denies. * Medical History: H ematuria work up, colonoscopy 2005 due in 10 years; colonoscopy w/CT Colonography done by Dr. Day 08/24/17, Hysterectomy 12-27-1991. * Family History: F ather: 78 yrs. [...] the [place]: no. * Medications: T aking Simvastatin 20 MG Tablet 1 tablet every evening Orally Once a day , Not-Taking/PRN Ibuprofen 800 MG Tablet 1 tablet with food or milk Orally Three times a day , Medication List reviewed and reconciled with the patient * Allergies: N .K.D.A. Objective: * Vitals: H t: 60, Wt: [...] Urine Blood Trace A Negative - Specific [place] - Urine 1.015 1.005-1.025 - Urine Protein [...] Pending * Provider: Ben Solorio MD Date: 12/12/2024 Generated for Charles varghese/Holly/Yuriyitting on: 12/12/2024 03:56 PM EDT History and Physical Notes * [...]
--- OUTSIDE RECORDS SUMMARY | 2024-12-12 15:56 | XMS_ITS | Patient Health Record ---
Author Organization [facility] Address [address] [place] [address] Care Team Providers Care Acid Loader Name Role Phone Ruddy Solorio MD Primary Care Provider Patricio Harris Unavailable [phone] Reason For Referral No Information Medications Medication SIG (Take, Route, Frequency, Duration) Notes Start Date End Date Status Calcium 600 + Minerals 600-200 MG-UNIT 1 tablet with food Orally Twice a day; Duration: 30 day(s) Active Multi Vitamin/Minerals as directed Orally Active Simvastatin 20 MG 1 tablet in the even ing Orally Once a day; Duration: 30 day(s) Active Problems Problem Type SNOMED Code ICD Code Onset Dates Problem Status W/U Status Risk Notes Problem Onychomycosis (554001558) Onychomycosis (110.1) Active confirmed Problem Hallux valgus (775050104) Hallux Valgus (735.0) Active confirmed Problem Ingrowing nail (660438457) Ingrowing Nail (703.0) Active confirmed Plan Of Treatment Pending Test Test Name Order Date 11432-Kztjghcj Plate 06/17/2012 Insurance Providers Payer Name Payer Address Payer Phone Subscriber Number Group Number Insured Name Patient Relationship to Insured Coverage Start Date Coverage End Date Medicare [facility] [address] [place] [address] [phone] [id number] Melia Hardin Self - patient is the insured [employer] [address] [place] [address] [id number] Melia Hardin Self - patient is the insured Medical (General) History Medical History History ICD Code broken bones cholesterol cataracts glaucoma measles mumps chicken pox Surgical History Surgery Date(Month/Year) hysterectomy 12/1991
--- OUTSIDE RECORDS SUMMARY | 2024-12-12 15:56 | XMS_ITS | Patient Health Record ---
Author Organization [facility] Address [address] [place] [address] Care Team Providers Care Vice President Of Procurement Name Role Phone Ruddy Solorio MD Primary Care Provider Maximilian Webb Unavailable [phone] Reason For Referral No Information Medications Medication SIG (Take, Route, Frequency, Duration) Notes Start Date End Date Status Multi Vitamin/Minerals - 1 Orally QD Active Calcium + D 500-1000-40 MG-UNT-MCG 1 tablet with meals Orally Twice a day Active Simvastatin 20 MG 1 tablet in the even ing Orally Once a day Active Immunizations Vaccine Route Administration Date Status Comme nts Flu vaccine no Preserv 3 and > Unknown 03/26/2016 Admin istered Social History Tobacco Use: Social History Observation Description Date Details (start date - stop date) Never Smoker NA - NA Tobacco Use/Smoking Question Answer Notes Patient is a nonsmoker Alcohol Screen Question Answer Notes Did you have a drink containing alcohol in the p ast year? No Points 0 Interpretation Negative Section Notes: Nonsmoker; no alcohol Problems Problem Type SNOMED Code ICD Code Onset Dates Problem Status W/U Status Risk Notes Problem 458526298 Encounter for screening for malignant neoplasm of colon (Z12.11) Active confirmed Problem 962409470 Preprocedural examination (Z01.818) Active confirmed Plan Of Treatment Future Test Test Name Order Date COLONOSCOPY 02/18/2017 Insurance Providers Payer Name Payer Address Payer Phone Subscriber Number Group Number Insured Name Patient Relationship to Insured Coverage Start Date Coverage End Date MEDICARE OF [place] [address] [place] [address] [id number] CLEMENCIA FERRER Self - patient is the insured [employer] CLAIMS [address] [place] [address] [id number] CLEMENCIA FERRER Self - patient is the insured Medical (General) History Medical History History ICD Code Denies CT,DM,CVA,Lung disease,renal dise ase Neg screening colonoscopy in 2005 except for diverticulosis and internal hemorrhoids Hyperlipidemia Surgical History Surgery Date(Month/Year) Bernardo
[2024-12-12 16:27] LABS: Blood Urea Nitrogen 35 mg/dL (9-16); Calcium 10.4 mg/dL (8.4-10.2); Estimated Glomerular Filt Rate 42
== END 2024-12-12 15:54 | disposition home or self-care (01) ==
LOC: HO.LNP 15:53
PROVIDERS: Visit Provider Internal Medicine
DX: R79.9 Abnormal finding of blood chemistry, unspecified (principal)
CPT/HCPCS: 82310; 82565; 84520

== ENCOUNTER 2025-02-13 07:00 | Outpatient (REF) | payer MEDICARE, SELFPAY ==
--- OUTSIDE RECORDS SUMMARY | 2024-06-17 06:45 | XMS_ITS ---
Author Organization Ruddy Solorio MD Address [address] [place] [phone] Care Team Providers Care Poundmaster Name Role Phone Lyndsey Ruddy Primary Care Provider Allergies No Known Allergies REASON FOR VISIT [...] kg/m2 06/17/2024 weight is down 2 pounds [facility] e 7-1-24 Encounters Encounter Location Date Provider Diagnosis Ruddy Solorio MD [address] [place] [phone] 06/17/2024 Ruddy Solorio Hypercalcemia E83.52 ; Elevated [...] Creatinine 12/15/2024 Next Appt Details Provider Name:Ruddy bunn, 02/20/2025 01:45:00 PM, [address] [place] [address], [address], [phone], Provider Name:Ruddy Pham Eve bunn, 12/07/2025 07:45:00 AM, [address] [place] [address], Suite [facility], [place], [place], [phone], Provider Name:Ruddy Nath Eve wur, 12/14/2025 09:30:00 AM, [address] [place] [address], [place] [address], [place], [place], [phone], Progress Notes * Nicci HARDINOB: 4 (79 yo F)Acc No.[id number]:06/17/2024 Patient: Pham waiteMelia Provider: Ben Solorio MD :1945 A ge:79 Y S ex:Female Date:06/17/2024 Address:[address] [place], [place] [phone] Subjective: * Chief Complaints: * 6 month/ must see BUN * HPI: S ymptom(s): patient is a 79 yo female here for 6month follow up visit. * ROS: G eneral/Constitutional: Denies C hills. D enies F atigue. D enies F ever. D enies H [...] 0 06/17/2024 Generated for Charles varghese/Holly/eTransmitting on: 0 02/13/2025 12:41 PM EDT History and Physical Notes * HPI (History [...]
--- OUTSIDE RECORDS SUMMARY | 2024-11-21 05:32 | XMS_ITS ---
Author Organization Ruddy Solorio MD Address [address] [place] [phone] Care Team Providers Care Integration Solution Architect Name Role Phone LyndseyMariselan Primary Care Provider [phone] REASON FOR VISIT refill Medications Medication SIG (Take, Route, Fr equency, Duration) Notes Start Date End Date Status Simvastatin 20 MG 1 tablet every eveni ng Orally Once a day for 90 days Active Encounters Encounter Location Date Provider Diagnosis Ruddy Solorio MD [address] [place] [phone] 11/21/2024 Ruddy Solorio Pure hypercholestero lemia E78.00 Assessments Encounter Date Diagnosis (ICD Code) Assessment Notes Treatment Notes Treatment Clinical Notes Section Notes 11/21/2024 Pure hypercholesterolemia (ICD-10 - E78.00) Plan Of Treatment Medication Medication Name Sig Start Date Stop Date Notes Simvastatin 20 MG 1 tablet every eveni ng Orally Once a day for 90 days Next Appt Details Provider Name:Ruddy bunn, 02/20/2025 01:45:00 PM, [address], [address], [place], [place], [phone], Provider Name:Ruddy Prado oni, 12/07/2025 07:45:00 AM, [address] [facility], [address], [place], [phone], Provider Name:Ruddy Prado oni, 12/14/2025 09:30:00 AM, [address] [place] [address], Suite [facility], [place], [phone], Progress Notes * Nicci HARDINOB: 4 (79 yo F)Acc No.[id number]:11/21/2024 Patient: Melia ST :1945 A ge:79 Y S ex:Female Address:[address] [place] [id number] * Refills Refill Simvastatin Tablet, 20 MG, Orally, 90, 1 tablet every evening, Once a day, 90 days, Refills=3 * true * Date: Generated for Charles varghese/Holly/Rheasmitting on: 0 02/13/2025 12:42 PM EDT
--- OUTSIDE RECORDS SUMMARY | 2024-11-29 03:30 | XMS_ITS ---
Author Organization Ruddy Solorio MD Address [address] [place] [phone] Care Team Providers Care Loading Rack Supervisor Name Role Phone Ruddy Solorio Primary Care Provider Results Component Value Reference Range Notes Complete Blood Count Auto Di ff Reviewed date:11/29/2024 12:32:06 PM Interpretation: Performing Lab:[facility], [address] [place] [phone] Notes/Report: White Blood Count 7.3 4.8-10.8 X10*3/uL [...] NRBC Abs Auto 0.000 0.0-0.012 X10*3/uL Comprehensive [place]. Panel Fa st Reviewed date:12/13/2024 11:00:29 AM Interpretation:12-12-2024 Performing Lab:[facility], [address] [place] [phone] Notes/Report: Sodium 144 135-145 mmol/L Potassium 4.1 [...] Panel Reviewed date:11/29/2024 12:29:46 PM Interpretation: Performing Lab:[facility], [address] [place] [phone] Notes/Report: Triglycerides 106 <150 mg/dL Desirable Triglyceride: [...] Random Reviewed date:11/29/2024 12:29:56 PM Interpretation: Performing Lab:[facility], [address] [place] [phone] Notes/Report: Creatinine Urine 86.19 Microalbumin Urine 20.0 Microalbum/Creatinine Ratio Ur 23.2 <30 ug/mg cr Albumin/Creatinine Ratio Reference Ranges: Normal: < 30 ug/mg creatinine Microalbuminuria: 30 - 300 ug/mg creatinine Clinical Albuminuria: > 300 ug/mg creatinine Hemoglobin A1c Reviewed date:11/29/2024 12:26:29 PM Interpretation: Performing Lab:[address] [phone] Notes/Report: Hemoglobin A1c % 5.5 <6.0 % [...] average glucose, using the formula of the D2T-Sblubtg Average Glucose study (ADAG), Diabetes Care, Vol.31,#8, 2007 UA ClnCatch+Micro w/rflx Cul t Reviewed date:11/29/2024 12:44:00 PM Interpretation: Performing Lab:[facility], [address] [place] [phone] Notes/Report: [id number] 0730 Urine, Clean Catch Color Urine Yellow Appearance Urine Clear PH 5.5 5.0-9.0 Glucose Urine UA Negative Negative mg/dL Urine Blood Trace Negative Specific [place] - Urine 1.015 1.005-1.025 Urine Protein Negative [...] Location Date Provider Diagnosis Ruddy Solorio MD [address] [place] [address] [place] [phone] 11/29/2024 Ruddy Solorio Prediabetes R73.09 ; Essential hypertension I10 and Pure hypercholesterolemia E78.00 Assessments Encounter Date Diagnosis (ICD Code) Assessment Notes Treatment Notes Treatment Clinical Notes Section Notes 11/29/2024 Prediabetes (ICD-10 - R73.09) 11/29/2024 Essential hypertensi on (ICD-10 - I10) 11/29/2024 Pure hypercholesterolemia (ICD-10 - E78.00) Plan Of Treatment Next Appt Details Provider Name:Ruddy bunn, 02/20/2025 01:45:00 PM, [address] [place] [address], Suite [facility], [place], [place], [phone], Provider Name:Ruddy bunn, 12/07/2025 07:45:00 AM, [address] [place] [address], [address] [place] [address], [phone], Provider Name:Ruddy bunn, 12/14/2025 09:30:00 AM, [address], [address], [place], [place], [phone], Progress Notes * Nicci HARDINOB: 4 (79 yo F)Acc No.[id number]:11/29/2024 Progress Note Patient: Melia ST Provider: Ben Solorio MD :1945 A ge:79 Y S ex:Female Date:11/29/2024 Address:[address] [place] [address] [id number] Subjective: * Chief Complaints: * 1 . [...] - 11/29/2024 07:30 AM) L AB: Comprehensive [place]. Panel Fast (Collection Date & Time - [...] - 11/29/2024 07:30 AM) L AB: Comprehensive [place]. Panel Fast (Collection Date & Time - [...] MD Date: 0 11/29/2024 Generated for Charles varghese/Holly/Yuriyitting on: 0 02/13/2025 12:42 PM EDT
--- OUTSIDE RECORDS SUMMARY | 2024-12-12 06:30 | XMS_ITS ---
Author Organization Ruddy Solorio MD Address [address] [place] [phone] Care Team Providers Care Patient Services Representative Name Role Phone LyndseyMariselan Primary Care Provider Allergies No Known Allergies Results Component Value Reference Range Notes Blood Urea Nitrogen Reviewed date:12/13/2024 12:40:34 PM Interpretation: Performing Lab:[facility], [address] [place] [phone] Notes/Report: Blood Urea Nitrogen 35 9-16 mg/dL Creatinine Reviewed date:12/13/2024 12:39:00 PM Interpretation: Performing Lab:[facility], [address] [place] [phone] Notes/Report: Creatinine 1.23 0.5-1.4 mg/dL Estimated Glomerular Filt Rate 42 Chronic Kidney Disease: Estimated GFR < 60 mL/min/1.73m2 Severe Kidney Disease: Estimated GFR < 15 mL/min/1.73m2 Calcium Reviewed date:12/13/2024 12:40:43 PM Interpretation: Performing Lab:[facility], [address] [facility], [place] [address] Notes/Report: Calcium 10.4 8.4-10.2 mg/dL REASON FOR [...] Location Date Provider Diagnosis Ruddy Solorio MD [address] [place] [address] [address] [place], [place] [phone] 12/12/2024 Ruddy Solorio Elevated BUN R79.9 ; [...] Next Appt Details Provider Name:Ruddy Prado ier, 02/20/2025 01:45:00 PM, [address] [facility], [address], [place], [place], [phone], Provider Name:Ruddy Prado ier, 12/07/2025 07:45:00 AM, [address] [facility], [address], [place], [place], [phone], Provider Name:Ruddy Prado ier, 12/14/2025 09:30:00 AM, [address] [facility], [address], [place], [phone], Progress Notes * DaveCorinaOB: 4 (79 yo F)Acc No.[id number]:12/12/2024 Patient: Pham WEINERMelia Provider: Ben Solorio MD :1945 A ge:79 Y S ex:Female Date:12/12/2024 Address:[address] [place] [address] [address] [facility] Subjective: * Chief Complaints: * c omp [...] Urine Blood Trace A Negative - Specific [place] - Urine 1.015 1.005-1.025 - Urine Protein [...] true * Provider: Ben Solorio MD Date: 12/12/2024 Generated for Charles varghese/Holly/Rheasmitting on: 0 02/13/2025 12:41 PM EDT History [...]
--- OUTSIDE RECORDS SUMMARY | 2025-02-13 03:00 | XMS_ITS ---
Author Organization Ruddy Solorio MD Address [address] [place] [phone] Care Team Providers Care Auxiliary Engineer Name Role Ruddy Goel Primary Care Provider Results Component Value Reference Range Notes Calcium (Not yet reviewed b y provider) Interpretation: Performing Lab:[facility], [address] [place] [phone] Notes/Report: Calcium 9.5 8.4-10.2 mg/dL REASON FOR VISIT repeat 2 month Calcium Encounters Encounter Location Date Provider Diagnosis Ruddy Solorio MD [address] [place] [phone] 02/13/2025 Ruddy Solorio Hypercalcemia E83.52 Assessments Encounter Date Diagnosis (ICD Code) Assessment Notes Treatment Notes Treatment Clinical Notes Section Notes 02/13/2025 Hypercalcemia (ICD-10 - E83.52) Plan Of Treatment Pending Test Test Name Order Date Calcium 02/13/2025 Next Appt Details Provider Name:Ruddy Prado ier, 02/20/2025 01:45:00 PM, [address], [address], [place], [place], [phone], Provider Name:Ruddy Prado ier, 12/07/2025 07:45:00 AM, [address], [address], [place], [phone], Provider Name:Ruddy Prado ier, 12/14/2025 09:30:00 AM, [address], [address], [place], [place], [phone], Progress Notes * Dave HARDINeDOB: (79 yo F)Acc No.[id number]:02/13/2025 Progress Note Patient: Melia ST Provider: Ben Solorio MD :1945 A ge:79 Y S ex:Female Date:02/13/2025 Address:[address] [place], [place] [phone] Subjective: * Chief Complaints: * 1 . [...] Date: 02/13/2025 Generated for Charles varghese/Holly/Rheasmitting on: 02/13/2025 12:42 PM EDT
[2025-02-13 10:52] LABS: Calcium 9.5 mg/dL (8.4-10.2)
--- OUTSIDE RECORDS SUMMARY | 2025-02-13 12:41 | XMS_ITS | Patient Health Record ---
Author Organization [facility] Address [address] [place] [address] Care Team Providers Care Restaurant Greeter Name Role Phone Ruddy Solorio MD Primary Care Provider Patricio Harris Unavailable [phone] Reason For Referral No Information Medications Medication [...] Status W/U Status Risk Notes Problem Onychomycosis (322614306) Onychomycosis (110.1) Active confirmed Problem Hallux valgus (829312923) Hallux Valgus (735.0) Active confirmed Problem Ingrowing nail (021796591) Ingrowing Nail (703.0) Active confirmed Plan Of Treatment Pending Test Test Name Order Date 33813-Megwpxob Plate 06/17/2012 Insurance Providers Payer Name Payer Address Payer Phone Subscriber Number Group Number Insured Name Patient Relationship to Insured Coverage Start Date Coverage End Date Medicare National [facility] [employer] [address] [place] [address] [phone] [id number] Melia Hardin Self - patient is the insured [employer] Blue [employer] [address] [place] [address] [id number] Melia Hardin Self - patient is the insured Medical (General) History Medical History History ICD Code broken bones cholesterol cataracts glaucoma measles mumps chicken pox Surgical History Surgery Date(Month/Year) hysterectomy 12/1991
--- OUTSIDE RECORDS SUMMARY | 2025-02-13 12:42 | XMS_ITS | Patient Health Record ---
Author Organization [facility] Address [address] [place] [address] Care Team Providers Care Security Incident Response Specialist Name Role Phone Ruddy Solorio MD Primary Care Provider Maximilian Webb Unavailable [phone] Reason For Referral No Information Medications Medication [...] Problem Status W/U Status Risk Notes Problem 343978161 Encounter for screening for malignant neoplasm of colon (Z12.11) Active confirmed Problem 903081218 Preprocedural examination (Z01.818) Active confirmed Plan Of Treatment Future Test Test Name Order Date COLONOSCOPY 02/18/2017 Insurance Providers Payer Name Payer Address Payer Phone Subscriber Number Group Number Insured Name Patient Relationship to Insured Coverage Start Date Coverage End Date MEDICARE OF [place] [address] [place] [address] [id number] CLEMENCIA FERRER Self - patient is the insured MEDEX ATTN CLAIMS [address] [place] [address] [id number] CLEMENCIA FERRER Self - patient is the insured Medical (General) History Medical History History ICD Code Denies [place],DM,CVA,Lung disease,renal dise ase Neg screening colonoscopy in 2005 except for diverticulosis and internal hemorrhoids Hyperlipidemia Surgical History Surgery Date(Month/Year) Bernardo
--- OUTSIDE RECORDS SUMMARY | 2025-02-13 12:43 | XMS_ITS | Patient Health Record ---
Author Organization Ruddy Solorio MD Address [address] [place] [phone] Care Team Providers Care Laser Beam Color Scanner Operator Name Role Phone Ruddy Solorio Primary Care Provider Allergies No Known Allergies Results Component Value Reference Range Notes Liver Panel Reviewed date:06/10/2024 01:57:13 PM Interpretation: Performing Lab:[address] [phone] Notes/Report: Bilirubin Total 0.4 0.0-1.0 mg/dL Bilirubin Direct 0.1 0.0-0.5 mg/dL Aspartate Amino Transferase 26 5-31 U/L Alanine Aminotransferase 18 0-31 U/L Total Protein 6.6 6.5-8.0 g/dL Albumin Level 3.9 3.5-5.0 g/dL Alkaline Phosphatase 54 39-117 U/L Blood Urea Nitrogen Reviewed date:06/17/2024 03:11:51 PM Interpretation:see back 06-17-24 Performing Lab:[address] [place] [address] Notes/Report: Blood Urea Nitrogen 26 9-16 mg/dL Creatinine Reviewed date:06/10/2024 01:56:17 PM Interpretation: Performing Lab:[facility], [address] [place] [phone] Notes/Report: Creatinine 1.29 0.5-1.4 mg/dL Estimated Glomerular Filt Rate 40 Chronic Kidney Disease: Estimated GFR < 60 mL/min/1.73m2 Severe Kidney Disease: Estimated GFR < 15 mL/min/1.73m2 Calcium Reviewed date:06/10/2024 01:55:49 PM Interpretation: Performing Lab:[address] [phone] Notes/Report: Calcium 10.0 8.4-10.2 mg/dL Lipid Panel with Reflex Reviewed date:06/10/2024 02:59:30 PM Interpretation: Performing Lab:[facility], [address] [place] [phone] Notes/Report: Triglycerides 118 <150 mg/dL Desirable Triglyceride: [...] low results in patients with liver disease. Complete Blood Count Auto Di ff Reviewed date:11/29/2024 12:32:06 PM Interpretation: Performing Lab:[address] [address] Notes/Report: White Blood Count 7.3 4.8-10.8 X10*3/uL [...] NRBC Abs Auto 0.000 0.0-0.012 X10*3/uL Comprehensive [place]. Panel Fa st Reviewed date:12/13/2024 11:00:29 AM Interpretation:12-12-2024 Performing Lab:[facility], [address] [place] [phone] Notes/Report: Sodium 144 135-145 mmol/L Potassium 4.1 [...] Panel Reviewed date:11/29/2024 12:29:46 PM Interpretation: Performing Lab:[address] [address] Notes/Report: Triglycerides 106 <150 mg/dL Desirable Triglyceride: [...] Random Reviewed date:11/29/2024 12:29:56 PM Interpretation: Performing Lab:[address] [address] Notes/Report: Creatinine Urine 86.19 Microalbumin Urine 20.0 Microalbum/Creatinine Ratio Ur 23.2 <30 ug/mg cr Albumin/Creatinine Ratio Reference Ranges: Normal: < 30 ug/mg creatinine Microalbuminuria: 30 - 300 ug/mg creatinine Clinical Albuminuria: > 300 ug/mg creatinine Hemoglobin A1c Reviewed date:11/29/2024 12:26:29 PM Interpretation: Performing Lab:[facility], [address] [place] [phone] Notes/Report: Hemoglobin A1c % 5.5 <6.0 % [...] average glucose, using the formula of the B8K-Qwjvsaw Average Glucose study (ADAG), Diabetes Care, Vol.31,#8, Jan. 2007 UA ClnCatch+Micro w/rflx Cul t Reviewed date:11/29/2024 12:44:00 PM Interpretation: Performing Lab:[address] [address] Notes/Report: [id number] Urine, Clean Catch Color Urine Yellow Appearance Urine Clear PH 5.5 5.0-9.0 Glucose Urine UA Negative Negative mg/dL Urine Blood Trace Negative Specific Newell - Urine 1.015 1.005-1.025 Urine Protein Negative Neg-Trace mg/dL Urine Ketones Negative Negative mg/dL Nitrite Urine Negative Negative Leukocyte Esterase Urine Moderate (2+) Negative RBC Urine 0-2 0-2 /HPF WBC Urine 0-5 0-5 /HPF Squamous Epithelial Cell Urine 0-2 0-2 /HPF Bacteria Urine None Seen None Seen Hyaline Casts Urine 0-2 0-2 /LPF Calcium (Not yet reviewed by provider) Interpretation: Performing Lab:[facility], [address] [place] [phone] Notes/Report: Calcium 9.5 8.4-10.2 mg/dL Blood Urea Nitrogen Reviewed date:12/13/2024 12:40:34 PM Interpretation: Performing Lab:[address] [address] Notes/Report: Blood Urea Nitrogen 35 9-16 mg/dL Creatinine Reviewed date:12/13/2024 12:39:00 PM Interpretation: Performing Lab:[address] [address] Notes/Report: Creatinine 1.23 0.5-1.4 mg/dL Estimated Glomerular Filt Rate 42 Chronic Kidney Disease: Estimated GFR < 60 mL/min/1.73m2 Severe Kidney Disease: Estimated GFR < 15 mL/min/1.73m2 Calcium Reviewed date:12/13/2024 12:40:43 PM Interpretation: Performing Lab:[facility], [address] [place] [phone] Notes/Report: Calcium 10.4 8.4-10.2 mg/dL MM tomosynthesis screening B I Reviewed date:04/29/2024 04:46:48 PM Interpretation: Performing Lab: Notes/Report: [facility] [address] [place] [address] Mammography Report Signed Patient: Melia Hardin MR#: [id number] : 1945 Acct:[id number] Age/Sex: 79 / F ADM Date: 04/21/24 Loc: HO.MAMMO Attending Dr: Ruddy Solorio MD Ordering Physician: Ruddy Solorio MD Results: 1Ne gative Date of Service: 04/21/24 Follow Up: 1 Year From Orig [facility] Mammogram Procedure(s): MM tomosynthesis screening BI Accession Number(s): [id number] cc: Ruddy Solorio MD EXAMINATION: MM SCREENING [...] by: Anneliese Garcia DO 04/29/2024 09:14 AM EST RP Dictated By: Anneliese Garcia DO Signed By: <Electronically signed by Anneliese Garcia DO in OV> 04/29/24913 DD/ 9 TD/TT: 04/21/24834 Eye Physician: [facility] [address] [place] [address] Dr. [place], [place] [address] Mammography Report Signed Patient: Melia Hardin MR#: [id number] : 1945 Acct:[id number] Age/Sex: 79 / F ADM Date: 04/21/24 Loc: HO.MAMMO Attending Dr: Ruddy Solorio MD Ordering Physician: Ruddy Solorio MD Results: 1Ne gative Date of Service: 04/21/24 Follow Up: 1 Year From Orig ina Mammogram Procedure(s): MM tomosynthesis screening BI Accession Number(s): [id number] cc: Ruddy Solorio MD EXAMINATION: MM SCREENING [...] due date for their next mammogram. Electronically eli d by: Anneliese Garcia DO 04/29/2024 09:14 AM EST RP Dictated By: Anneliese Garcia DO Signed By: <Electronically signed by Anneliese Garcia DO in OV> 04/29/24913 DD/ 9 TD/TT: 04/21/24834 Eye Physician: Jean Martel date:06/10/2024 11:17:03 AM Interpretation: Performing Lab:[facility], [address] [place] [phone] Notes/Report: Jean Santiago See Note Specimen held untested for 24 hours; Call to request Chemistry testing. Urine Culture Reviewed date:11/30/2024 07:41:32 PM Interpretation: Performing Lab:[facility], [address] [place] [phone] Notes/Report: Urine Culture Report Result Urine Culture < 10,000 cfu/ml Reason For Referral No Information Medications Medication SIG (Take, Route, Fr equency, Duration) Notes Start Date End Date Status Simvastatin 20 MG 1 tablet every eveni ng Orally Once a day for 90 days Active Ibuprofen 800 MG 1 tablet with food o r milk Orally Three times a day for 30 day(s) 01/19/2017 Not-Taking Immunizations Vaccine Route Administration Date Status Comme nts Flu Vaccine IM Intramuscular 03/10/2011 Administered Flu Vaccine Unknown 03/03/2012 Administered [facility] PPSV23 (Pnemovax) Unknown 03/03/2012 Administered TDaP IM Intramuscular 07/05/2012 Administered Flu Vaccine IM Intramuscular 03/01/2013 Administered [facility] Prevnar 13 IM Intramuscular 08/22/2013 Administered Flu Vaccine IM Intramuscular 02/17/2014 Administered [facility] Fluarix Quadrivalent Unknown 02/17/2014 Administered [facility] Shingles Unknown 02/27/2013 Administered Flu Vaccine IM Intramuscular 03/09/2015 Administered pt re cieved high dose flu vaccine at [facility] Flu Vaccine IM Intramuscular 03/12/2016 Administered Fluarix Quadrivalent Unknown 03/30/2017 Administered [facility] PPSV23 (Pnemovax) IM Intramuscular 10/19/2017 Administered Flu Vaccine IM Intramuscular 02/22/2018 Administered Pt wa s given the high dose flu vaccine at [facility]. Fluarix Quadrivalent Unknown 03/14/2019 Administered [facility] Influenza High Dose Unknown 03/06/2020 Administered [facility] Covid Vaccine Unknown 09/12/2020 Administered [facility] Soler SARS-COV-2 Pfizer Unknown 06/10/2021 Administered Influenza High Dose Unknown 03/05/2021 Administered Fluarix Quadrivalent Unknown 03/04/2022 Administered Shingrix Unknown 05/12/2019 Refused Social History Tobacco Use: Social History Observation [...] ast year? No Points 0 Interpretation Negative Problems Problem Type SNOMED Code ICD Code Onset Dates Problem Status W/U Status Risk Notes Problem Hypercalcemia (70452830) Hypercalcemia (E83.52) Active confirmed Problem 051298479 Osteopenia (M85.80) Active confirmed Problem 94530102 Essential hypert ension (I10) Active confirmed Problem 9766364 Prediabetes (R73.09) Active confirmed Problem 094558112 History of hemat uria (Z87.448) Active confirmed Problem 21233760 Sciatica of left side (M54.32) Active confirmed Problem Sciatica (82755732) Right sided sciatica (M54.31) Active confirmed Problem 090659946 Pure hypercholesterolemia (E78.00) Active confirmed Vital Signs Blood pressure diastolic 56 mm Hg 12/12/2024 [place] ght is up 3 pounds since 06-17-24 Height 60 in 12/12/2024 weight is up 3 pounds since 06-17-24 Blood pressure systolic 152 mm Hg 12/12/2024 [place] ht is up 3 pounds since 06-17-24 Weight 153 lbs 12/12/2024 weight is up 3 pounds since 06-17-24 BMI 29.88 kg/m2 12/12/2024 weight is up 3 pounds since 06-17-24 Encounters Encounter Location Date Provider Diagnosis Ruddy Solorio MD [address] [place] [id number] 06/10/2024 Ruddy Solorio Essential hypertensi on I10 ; Hypercalcemia E83.52 and Pure hypercholesterolemia E78.00 Ruddy Solorio MD [address] [place] [id number] 11/29/2024 Ruddy Solorio Prediabetes R73.09 ; Essential hypertension I10 and Pure hypercholesterolemia E78.00 Ruddy Solorio MD [address] [place] [id number] 02/13/2025 Ruddy Solorio Hypercalcemia E83.52 Ruddy Solorio MD [address] [facility] [address] [place] [id number] 06/17/2024 Ruddy Solorio Hypercalcemia E83.52 ; Elevated serum creatinine R79.89 and Vaccine counseling Z71.85 Ruddy Solorio MD [address] [facility] [address] [place] [id number] 12/12/2024 Ruddy Solorio Elevated BUN R79.9 ; Hypercalcemia E83.52 ; Prediabetes R73.09 and Essential hypertension I10 Ruddy Solorio MD [address] [facility] [address] [facility] [address] [place] [id number] 11/21/2024 Ruddy Solorio Pure hypercholestero lemia E78.00 Assessments Encounter Date Diagnosis (ICD Code) Assessment Notes Treatment Notes Treatment Clinical Notes Section Notes 06/10/2024 Essential hypertensi on (ICD-10 - I10) 06/10/2024 Hypercalcemia (ICD-1 0 - E83.52) 11/29/2024 Prediabetes (ICD-10 - R73.09) 02/13/2025 Hypercalcemia (ICD-1 0 - E83.52) 06/17/2024 Hypercalcemia (ICD-1 0 - E83.52) has returned to normal, will continue to monitor 06/17/2024 Elevated serum creatinine (ICD-10 - R79.89) refrain from NSAID usage, discussed findings of recent blood test, pending future labs 12/12/2024 Elevated BUN (ICD-10 - R79.9) pending labs, will continue to monitor 12/12/2024 Hypercalcemia (ICD-1 0 - E83.52) going to stop calcium and will repeat in 2 months 11/21/2024 Pure hypercholesterolemia (ICD-10 - E78.00) 06/10/2024 Pure hypercholesterolemia (ICD-10 - E78.00) 11/29/2024 Essential hypertensi on (ICD-10 - I10) 06/17/2024 Vaccine counseling (ICD-10 - Z71.85) discussed need for shingles and pneumovax 12/12/2024 Prediabetes (ICD-10 - R73.09) stable, no need for medication at this time, will continue to monitor 11/29/2024 Pure hypercholesterolemia (ICD-10 - E78.00) 12/12/2024 Essential hypertensi on (ICD-10 - I10) stable, will continue to monitor Plan Of Treatment Pending Test Test Name Order Date CT Scan : Abdomen and Pelvis with contra st 12/30/2010 Electrocardiogram (EKG) 09/28/2015 Electrocardiogram (EKG) 10/29/2018 Calcium 02/13/2025 XR DEXA axial skeleton 11/29/2020 Future Test Test Name Order Date Blood Urea Nitrogen 12/15/2024 Creatinine 12/15/2024 Next Appt Details Provider Name:Ruddy P Alissaashanti ier, 02/20/2025 01:45:00 PM, [address] [place] [address], [place] [address], [place], [place], [phone], Provider Name:Ruddy P Alisasashanti ier, 12/07/2025 07:45:00 AM, [address] [place] [address], [place] [address], [place], [place], [phone], Provider Name:Ruddy Pham Prado ier, 12/14/2025 09:30:00 AM, [address] [place] [address], [address], [phone], Insurance Providers Payer Name Payer Address Payer Phone Subscriber Number Group Number Insured Name Patient Relationship to Insured Coverage Start Date Coverage End Date [employer] [address] [place] [address] [id number] Melia Hardin Self - patient is the insured MEDEX BC OF [facility] [address] [place] [phone] [id number] Melia Hardin Self - patient is the insured Medical (General) History Medical History History ICD Code hematuria work up colonoscopy 2005 due in 10 y ears; colonoscopy w/CT Colonography done by Dr. Day 08/24/17 Hysterectomy 12-27-1991 Surgical History Surgery Date(Month/Year) Total Hysterctomy and Appendectomy 1992
== END 2025-02-13 07:01 | disposition home or self-care (01) ==
LOC: HO.LNP 07:00
PROVIDERS: Visit Provider Internal Medicine
DX: E83.52 Hypercalcemia (principal)
CPT/HCPCS: 82310

== ENCOUNTER 2025-02-20 15:44 | Outpatient (REF) | payer MEDICARE, SELFPAY ==
--- OUTSIDE RECORDS SUMMARY | 2024-11-21 05:32 | XMS_ITS ---
Author Organization Ruddy Solorio MD Address [address] [place] [phone] Care Team Providers Care Sports Announcer Name Role Phone HemalathaMarisela rudolphn Primary Care Provider REASON FOR VISIT refill Medications Medication SIG (Take, Route, Fr equency, Duration) Notes Start Date End Date Status Simvastatin 20 MG 1 tablet every eveni ng Orally Once a day for 90 days Active Encounters Encounter Location Date Provider Diagnosis Ruddy Solorio MD [address] [place] [phone] 11/21/2024 Ruddy Solorio Pure hypercholestero lemia E78.00 [...] AM, [address], [address], [place], [place], [phone], Provider Name:Ruddypoppy bunn, 12/14/2025 09:30:00 AM, [address] [facility], [address], [place], [phone], Progress Notes * Nicci HARDINOB: 4 (79 yo F)Acc No.[id number]:11/21/2024 Patient: Melia ST :1945 A ge:79 Y S ex:Female Address:[address] [place] [id number] * Refills Refill Simvastatin Tablet, 20 MG, Orally, 90, 1 tablet every evening, Once a day, 90 days, Refills=3 * true * Date: Generated for Charles varghese/Holly/Yuriyitting on: 0 02/20/2025 09:05 PM EDT
--- OUTSIDE RECORDS SUMMARY | 2024-11-29 03:30 | XMS_ITS ---
Author Organization Ruddy Solorio MD Address [address] [place] [phone] Care Team Providers Care Apartment Maintenance Technician Name Role Phone Ruddy Solorio Primary Care Provider Results Component Value Reference Range Notes Complete Blood Count Auto Di ff Reviewed date:11/29/2024 12:32:06 PM Interpretation: Performing Lab:[facility], [address] [place] [phone] Notes/Report: White Blood Count 7.3 4.8-10.8 X10*3/uL [...] NRBC Abs Auto 0.000 0.0-0.012 X10*3/uL Comprehensive [place]. Panel Fa st Reviewed date:12/13/2024 11:00:29 AM Interpretation:12-12-2024 Performing Lab:[facility], [address] [place] [phone] Notes/Report: Sodium 144 135-145 mmol/L Potassium 4.1 [...] Panel Reviewed date:11/29/2024 12:29:46 PM Interpretation: Performing Lab:[facility], [address] [place] [phone] Notes/Report: Triglycerides 106 <150 mg/dL Desirable Triglyceride: [...] Random Reviewed date:11/29/2024 12:29:56 PM Interpretation: Performing Lab:[facility], [address] [place] [phone] Notes/Report: Creatinine Urine 86.19 Microalbumin Urine 20.0 Microalbum/Creatinine Ratio Ur 23.2 <30 ug/mg cr Albumin/Creatinine Ratio Reference Ranges: Normal: < 30 ug/mg creatinine Microalbuminuria: 30 - 300 ug/mg creatinine Clinical Albuminuria: > 300 ug/mg creatinine Hemoglobin A1c Reviewed date:11/29/2024 12:26:29 PM Interpretation: Performing Lab:[address] [phone] Notes/Report: Hemoglobin A1c % 5.5 <6.0 % [...] average glucose, using the formula of the A5M-Pzesxys Average Glucose study (ADAG), Diabetes Care, Vol.31,#8, 2007 UA ClnCatch+Micro w/rflx Cul t Reviewed date:11/29/2024 12:44:00 PM Interpretation: Performing Lab:[facility], [address] [place] [phone] Notes/Report: [id number] 0730 Urine, Clean Catch Color Urine Yellow Appearance Urine Clear PH 5.5 5.0-9.0 Glucose Urine UA Negative Negative mg/dL Urine Blood Trace Negative Specific [place] - Urine 1.015 1.005-1.025 Urine Protein Negative [...] Location Date Provider Diagnosis Ruddy Solorio MD [address] [place] [address] [place] [phone] 11/29/2024 Ruddy Solorio Prediabetes R73.09 ; Essential hypertension I10 and Pure hypercholesterolemia E78.00 Assessments Encounter Date Diagnosis (ICD Code) Assessment Notes Treatment Notes Treatment Clinical Notes Section Notes 11/29/2024 Prediabetes (ICD-10 - R73.09) 11/29/2024 Essential hypertensi on (ICD-10 - I10) 11/29/2024 Pure hypercholesterolemia (ICD-10 - E78.00) Plan Of Treatment Next Appt Details Provider Name:Ruddy bunn, 12/07/2025 07:45:00 AM, [address] [place] [address], [address] [place] [address], [phone], Provider Name:Ruddy bunn, 12/14/2025 09:30:00 AM, [address] [place] [address], [address] [place] [address], [phone], Progress Notes * Reena HARDIN: 4 (79 yo F)Acc No.[id number]:11/29/2024 Progress Note Patient: Melia ST Provider: Ben Solorio MD :1945 A ge:79 Y S ex:Female Date:11/29/2024 Address:[address] [place] [address] Subjective: * Chief Complaints: * 1 . [...] - 11/29/2024 07:30 AM) L AB: Comprehensive [place]. Panel Fast (Collection Date & Time - [...] - 11/29/2024 07:30 AM) L AB: Comprehensive [place]. Panel Fast (Collection Date & Time - [...] 0 11/29/2024 Generated for Charles varghese/Holly/Shelly on: 0 02/20/2025 09:05 PM EDT
--- OUTSIDE RECORDS SUMMARY | 2024-12-12 06:30 | XMS_ITS ---
Author Organization Ruddy Solorio MD Address [address] [place] [phone] Care Team Providers Care Scrap Hoist Operator Name Role Phone HemalathauRddy rudolph Primary Care Provider Allergies No Known Allergies Results Component Value Reference Range Notes Blood Urea Nitrogen Reviewed date:12/13/2024 12:40:34 PM Interpretation: Performing Lab:[facility], [address] [place] [phone] Notes/Report: Blood Urea Nitrogen 35 9-16 mg/dL Creatinine Reviewed date:12/13/2024 12:39:00 PM Interpretation: Performing Lab:[facility], [address] [place] [phone] Notes/Report: Creatinine 1.23 0.5-1.4 mg/dL Estimated Glomerular Filt Rate 42 Chronic Kidney Disease: Estimated GFR < 60 mL/min/1.73m2 Severe Kidney Disease: Estimated GFR < 15 mL/min/1.73m2 Calcium Reviewed date:12/13/2024 12:40:43 PM Interpretation: Performing Lab:[facility], [address] [facility], [place] [address] Notes/Report: Calcium 10.4 8.4-10.2 mg/dL REASON FOR [...] Location Date Provider Diagnosis Ruddy Solorio MD [address] [place] [address] [address] [place], [place] [phone] 12/12/2024 Ruddy Solorio Elevated BUN R79.9 ; [...] Name:Ruddy Prado ier, 12/07/2025 07:45:00 AM, [address], [address], [place], [phone], Provider Name:Ruddy Prado ier, 12/14/2025 09:30:00 AM, [address], [address], [place], [phone], Progress Notes * Dave HARDINeDOB: 4 (79 yo F)Acc No.[id number]:12/12/2024 Patient: Melia ST Provider: Ben Solroio MD :1945 A ge:79 Y S ex:Female Date:12/12/2024 Address:[address] [place] [address] [id number] Subjective: * Chief Complaints: * c omp [...] Urine Blood Trace A Negative - Specific [place] - Urine 1.015 1.005-1.025 - Urine Protein [...] MD Date: 0 12/12/2024 Generated for Charles varghese/Holly/eTmelinasmitting on: 0 02/20/2025 09:04 PM EDT History and Physical Notes * [...]
--- OUTSIDE RECORDS SUMMARY | 2025-02-13 03:00 | XMS_ITS ---
Author Organization Ruddy Solorio MD Address [address] [place] [phone] Care Team Providers Care Automobile Repossessor Name Role Ruddy Goel Primary Care Provider [phone] Results Component Value Reference Range Notes Calcium Reviewed date:02/13/2025 12:46:48 PM Interpretation: Performing Lab:[facility], [address] [place] [phone] Notes/Report: Calcium 9.5 8.4-10.2 mg/dL REASON FOR VISIT repeat 2 month Calcium Encounters Encounter Location Date Provider Diagnosis Ruddy Solorio MD [address] [place] [phone] 02/13/2025 Ruddy Solorio Hypercalcemia E83.52 Assessments Encounter Date Diagnosis (ICD Code) Assessment Notes Treatment Notes Treatment Clinical Notes Section Notes 02/13/2025 Hypercalcemia (ICD-10 - E83.52) Plan Of Treatment Next Appt Details Provider Name:Ruddy bunn, 12/07/2025 07:45:00 AM, [address], [address], [place], [place], [phone], Provider Name:Ruddy Prado ier, 12/14/2025 09:30:00 AM, [address] [facility], [address], [place], [place], [phone], Progress Notes * Nicci HARDINOB: 4 (79 yo F)Acc No.[id number]:02/13/2025 Progress Note Patient: Melia ST Provider: Ben Solorio MD :1945 A ge:79 Y S ex:Female Date:02/13/2025 Address:[address] [place] [address] [facility] Subjective: * Chief Complaints: * 1 . [...] Pending * Provider: Ben Solorio MD Date: 02/13/2025 Generated for Charles varghese/Holly/Rheasmitting on: 02/20/2025 09:05 PM EDT
--- OUTSIDE RECORDS SUMMARY | 2025-02-20 09:45 | XMS_ITS ---
Author Organization Ruddy Solorio MD Address [address] [place] [phone] Care Team Providers Care Nursery School Teacher Name Role Phone LyndseyRuddy Primary Care Provider Allergies No Known Allergies Results Component Value Reference Range Notes Blood Urea Nitrogen Reviewed date:02/20/2025 04:46:19 PM Interpretation: Performing Lab:[facility], [address] [place] [phone] Notes/Report: Blood Urea Nitrogen 26 9-16 mg/dL Creatinine Reviewed date:02/20/2025 04:47:14 PM Interpretation: Performing Lab:[facility], [address] [place] [phone] Notes/Report: Creatinine 1.02 0.5-1.4 mg/dL Estimated Glomerular [...] kg/m2 02/20/2025 weight is down 3 pounds [facility] e 12-12-24 Encounters Encounter Location Date Provider Diagnosis Ruddy Solorio MD [address] [place] [address] [place] [phone] 02/20/2025 Ruddy Solorio Elevated BUN R79.9 ; [...] Details Provider Name:Ruddy bunn, 12/07/2025 07:45:00 AM, [address] [place] [address], Suite [facility], [place], [phone], Provider Name:Ruddy bunn, 12/14/2025 09:30:00 AM, [address] [place] [address], [place] [address], [place], [place], [phone], Progress Notes * Nicci HARDINOB: 4 (79 yo F)Acc No.[id number]:02/20/2025 Progress Notes Patient: Pham WEINERDavee Provider: Ben Solorio MD :1945 A ge:79 Y S ex:Female Date:02/20/2025 Address:[id number] Subjective: * Chief Complaints: * 1 . 2 month follow up appt. * HPI: S ymptom(s): patient is a [...] D enies N ausea. * Medical History: H ematuria work up, colonoscopy 2005 due in 10 years; colonoscopy w/CT Colonography done by Dr. Day 08/24/17, Hysterectomy 12-27-1991. * Medications: T aking Simvastatin 20 MG [...] 9 0662 FLU VACC PRSV FREE INC ANTIG, G0008 ADMN FLU VAC NO FEE SCHED SAME DAY * * The named appointment provid er may or may not be the originator of this progress note, and it is not deemed complete until electronically signed by the appointment provider. Sign off status: Pending * Provider: Ben Solorio MD Date: 0 02/20/2025 Generated for Charles varghese/Holly/Yuriyitting on: 02/20/2025 09:04 PM EDT History and Physical [...]
[2025-02-20 15:56] LABS: Blood Urea Nitrogen 26 mg/dL (9-16); Estimated Glomerular Filt Rate 52
--- OUTSIDE RECORDS SUMMARY | 2025-02-20 21:04 | XMS_ITS | Patient Health Record ---
Author Organization [facility] Address [address] [place] [address] Care Team Providers Care Traffic Sign Erection Supervisor Name Role Phone Ruddy Solorio MD Primary Care Provider Patricio Harris Unavailable [phone] Reason For Referral No Information Medications Medication [...] Status W/U Status Risk Notes Problem Onychomycosis (187873786) Onychomycosis (110.1) Active confirmed Problem Hallux valgus (147200968) Hallux Valgus (735.0) Active confirmed Problem Ingrowing nail (478688929) Ingrowing Nail (703.0) Active confirmed Plan Of Treatment Pending Test Test Name Order Date 47911-Wtygicnt Plate 06/17/2012 Insurance Providers Payer Name Payer Address Payer Phone Subscriber Number Group Number Insured Name Patient Relationship to Insured Coverage Start Date Coverage End Date Medicare National [facility] [employer] [address] [place] [address] [phone] [id number] Melia Hardin Self - patient is the insured [employer] Blue [employer] [address] [place] [address] [id number] Melia Hardin Self - patient is the insured Medical (General) History Medical History History ICD Code broken bones cholesterol cataracts glaucoma measles mumps chicken pox Surgical History Surgery Date(Month/Year) hysterectomy 12/1991
--- OUTSIDE RECORDS SUMMARY | 2025-02-20 21:05 | XMS_ITS | Patient Health Record ---
Author Organization [facility] Address [address] [place] [address] Care Team Providers Care Rolling Down Machine Operator Name Role Phone Ruddy Solorio MD Primary Care Provider Maximilian Webb Unavailable [phone] Reason For Referral No Information Medications Medication [...] Problem Status W/U Status Risk Notes Problem 708548448 Encounter for screening for malignant neoplasm of colon (Z12.11) Active confirmed Problem 402864058 Preprocedural examination (Z01.818) Active confirmed Plan Of Treatment Future Test Test Name Order Date COLONOSCOPY 02/18/2017 Insurance Providers Payer Name Payer Address Payer Phone Subscriber Number Group Number Insured Name Patient Relationship to Insured Coverage Start Date Coverage End Date MEDICARE OF [place] [address] [place] [address] [id number] CLEMENCIA FERRER Self - patient is the insured MEDEX ATT[employer] CLAIMS [address] [place] [address] [id number] CLEMENCIA FERRER Self - patient is the insured Medical (General) History Medical History History ICD Code Denies DC,DM,CVA,Lung disease,renal dise ase Neg screening colonoscopy in 2005 except for diverticulosis and internal hemorrhoids Hyperlipidemia Surgical History Surgery Date(Month/Year) Bernardo
--- OUTSIDE RECORDS SUMMARY | 2025-02-20 21:06 | XMS_ITS | Patient Health Record ---
Author Organization Ruddy Solorio MD Address [address] [place] [phone] Care Team Providers Care Superintendent System Operation Name Role Phone Ruddy Solorio Primary Care Provider [phone] Allergies No Known Allergies Results Component Value Reference Range Notes Liver Panel Reviewed date:06/10/2024 01:57:13 PM Interpretation: Performing Lab:[address] [phone] Notes/Report: Bilirubin Total 0.4 0.0-1.0 mg/dL Bilirubin Direct 0.1 0.0-0.5 mg/dL Aspartate Amino Transferase 26 5-31 U/L Alanine Aminotransferase 18 0-31 U/L Total Protein 6.6 6.5-8.0 g/dL Albumin Level 3.9 3.5-5.0 g/dL Alkaline Phosphatase 54 39-117 U/L Blood Urea Nitrogen Reviewed date:06/17/2024 03:11:51 PM Interpretation:see back 06-17-24 Performing Lab:[address] [place] [address] Notes/Report: Blood Urea Nitrogen 26 9-16 mg/dL Creatinine Reviewed date:06/10/2024 01:56:17 PM Interpretation: Performing Lab:[facility], [address] [place] [phone] Notes/Report: Creatinine 1.29 0.5-1.4 mg/dL Estimated Glomerular Filt Rate 40 Chronic Kidney Disease: Estimated GFR < 60 mL/min/1.73m2 Severe Kidney Disease: Estimated GFR < 15 mL/min/1.73m2 Calcium Reviewed date:06/10/2024 01:55:49 PM Interpretation: Performing Lab:[address] [address] Notes/Report: Calcium 10.0 8.4-10.2 mg/dL Lipid Panel with Reflex Reviewed date:06/10/2024 02:59:30 PM Interpretation: Performing Lab:[facility], [address] [place] [phone] Notes/Report: Triglycerides 118 <150 mg/dL Desirable Triglyceride: [...] ff Reviewed date:11/29/2024 12:32:06 PM Interpretation: Performing Lab:[address] [address] Notes/Report: White Blood Count 7.3 4.8-10.8 X10*3/uL [...] NRBC Abs Auto 0.000 0.0-0.012 X10*3/uL Comprehensive [place]. Panel Fa st Reviewed date:12/13/2024 11:00:29 AM Interpretation:12-12-2024 Performing Lab:[facility], [address] [place] [phone] Notes/Report: Sodium 144 135-145 mmol/L Potassium 4.1 [...] Panel Reviewed date:11/29/2024 12:29:46 PM Interpretation: Performing Lab:[address] [address] Notes/Report: Triglycerides 106 <150 mg/dL Desirable Triglyceride: [...] Random Reviewed date:11/29/2024 12:29:56 PM Interpretation: Performing Lab:[address] [address] Notes/Report: Creatinine Urine 86.19 Microalbumin Urine 20.0 Microalbum/Creatinine Ratio Ur 23.2 <30 ug/mg cr Albumin/Creatinine Ratio Reference Ranges: Normal: < 30 ug/mg creatinine Microalbuminuria: 30 - 300 ug/mg creatinine Clinical Albuminuria: > 300 ug/mg creatinine Hemoglobin A1c Reviewed date:11/29/2024 12:26:29 PM Interpretation: Performing Lab:[facility], [address] [place] [phone] Notes/Report: Hemoglobin A1c % 5.5 <6.0 % [...] average glucose, using the formula of the N2D-Ekfeeht Average Glucose study (ADAG), Diabetes Care, Vol.31,#8, Jan. 2007 UA ClnCatch+Micro w/rflx Cul t Reviewed date:11/29/2024 12:44:00 PM Interpretation: Performing Lab:[address] [address] Notes/Report: [id number] Urine, Clean Catch Color Urine Yellow Appearance Urine Clear PH 5.5 5.0-9.0 Glucose Urine UA Negative Negative mg/dL Urine Blood Trace Negative Specific [place] - Urine 1.015 1.005-1.025 Urine Protein Negative Neg-Trace mg/dL Urine Ketones Negative Negative mg/dL Nitrite Urine Negative Negative Leukocyte Esterase Urine Moderate (2+) Negative RBC Urine 0-2 0-2 /HPF WBC Urine 0-5 0-5 /HPF Squamous Epithelial Cell Urine 0-2 0-2 /HPF Bacteria Urine None Seen None Seen Hyaline Casts Urine 0-2 0-2 /LPF Calcium Reviewed date:02/13/2025 12:46:48 PM Interpretation: Performing Lab:[address] [address] Notes/Report: Calcium 9.5 8.4-10.2 mg/dL Blood Urea Nitrogen Reviewed date:02/20/2025 04:46:19 PM Interpretation: Performing Lab:[address] [address] Notes/Report: Blood Urea Nitrogen 26 9-16 mg/dL Creatinine Reviewed date:02/20/2025 04:47:14 PM Interpretation: Performing Lab:[address] [address] Notes/Report: Creatinine 1.02 0.5-1.4 mg/dL Estimated Glomerular Filt Rate 52 Chronic Kidney Disease: Estimated GFR < 60 mL/min/1.73m2 Severe Kidney Disease: Estimated GFR < 15 mL/min/1.73m2 Blood Urea Nitrogen Reviewed date:12/13/2024 12:40:34 PM Interpretation: Performing Lab:[facility], [address] [place] [phone] Notes/Report: Blood Urea Nitrogen 35 9-16 mg/dL Creatinine Reviewed date:12/13/2024 12:39:00 PM Interpretation: Performing Lab:[facility], [address] [place] [phone] Notes/Report: Creatinine 1.23 0.5-1.4 mg/dL Estimated Glomerular Filt Rate 42 Chronic Kidney Disease: Estimated GFR < 60 mL/min/1.73m2 Severe Kidney Disease: Estimated GFR < 15 mL/min/1.73m2 Calcium Reviewed date:12/13/2024 12:40:43 PM Interpretation: Performing Lab:[facility], [address] [place] [phone] Notes/Report: Calcium 10.4 8.4-10.2 mg/dL MM tomosynthesis screening B I Reviewed date:04/29/2024 04:46:48 PM Interpretation: Performing Lab: Notes/Report: [facility]'[address] [place] [address] Mammography Report Signed Patient: Melia Hardin MR#: [id number] : 1945 Acct:[id number] Age/Sex: 79 / F ADM Date: 04/21/24 Loc: HO.MAMMO Attending Dr: Ruddy Solorio MD Ordering Physician: Ruddy Solorio MD Results: 1Ne gative Date of Service: 04/21/24 Follow Up: 1 Year From Orig ina Mammogram Procedure(s): MM tomosynthesis screening BI Accession Number(s): [id number] cc: Ruddy Solorio MD EXAMINATION: MM SCREENING [...] by: Anneliese Garcia DO 04/29/2024 09:14 AM [facility] [place] [place] Dictated By: Anneliese Garcia DO Signed By: <Electronically signed by Anneliese Gracia DO in OV> 04/29/2414 DD/ 9 TD/TT: 04/21/24834 Street Supervisor: [facility] [address] [place] [address] Mammography Report Signed Patient: Melia Hardin MR#: [id number] : 1945 Acct:[id number] Age/Sex: 79 / F ADM Date: 04/21/24 Loc: HO.MAMMO Attending Dr: Ruddy Solorio MD Ordering Physician: Ruddy Solorio MD Results: 1Ne gative Date of Service: 04/21/24 Follow Up: 1 Year From [facility] Mammogram Procedure(s): MM tomosynthesis screening BI Accession Number(s): [id number] cc: Ruddy Solorio MD EXAMINATION: MM SCREENING [...] by: Anneliese Garcia DO 04/29/2024 09:14 AM [facility] [place] [place] Dictated By: Anneliese Garcia DO Signed By: <Electronically signed by Anneliese Garcia DO in OV> 04/29/24913 DD/ 9 TD/TT: 04/21/24834 Street Supervisor: Jean Santiago Reviewed date:06/10/2024 11:17:03 AM Interpretation: Performing Lab:[facility], [address] [place] [phone] Notes/Report: Jean Santiago See Note Specimen held untested for 24 hours; Call to request Chemistry testing. Urine Culture Reviewed date:11/30/2024 07:41:32 PM Interpretation: Performing Lab:[facility], [address] [place] [phone] Notes/Report: Urine Culture Report Result Urine Culture [...] 03/10/2011 Administered Flu Vaccine Unknown 03/03/2012 Administered [facility] PPSV23 (Pnemovax) Unknown 03/03/2012 Administered TDaP IM Intramuscular 07/05/2012 Administered Flu Vaccine IM Intramuscular 03/01/2013 Administered [facility] Prevnar 13 IM Intramuscular 08/22/2013 Administered Flu Vaccine IM Intramuscular 02/17/2014 Administered [facility] Fluarix Quadrivalent Unknown 02/17/2014 Administered [facility] Shingles Unknown 02/27/2013 Administered Flu Vaccine IM Intramuscular 03/09/2015 Administered pt re cieved high dose flu vaccine at [facility] in [place] Flu Vaccine IM Intramuscular 03/12/2016 Administered Fluarix Quadrivalent Unknown 03/30/2017 Administered Nina PPSV23 (Pnemovax) IM Intramuscular 10/19/2017 Administered Flu Vaccine IM Intramuscular 02/22/2018 Administered Pt wa s given the high dose flu vaccine at [facility]. Fluarix Quadrivalent Unknown 03/14/2019 Administered Nina Influenza High Dose Unknown 03/06/2020 Administered Velvet santos Covid Vaccine Unknown 09/12/2020 Administered Ryder mita angie Soler SARS-COV-2 Pfizer Unknown 06/10/2021 Administered Influenza High Dose Unknown 03/05/2021 Administered Fluarix Quadrivalent Unknown 03/04/2022 Administered Influenza High Dose IM Intramuscular 02/20/2025 Administer ed Shingrix Unknown 05/12/2019 Refused Social History Tobacco [...] Status W/U Status Risk Notes Problem Hypercalcemia (22262591) Hypercalcemia (E83.52) Active confirmed Problem 197617882 Osteopenia (M85.80) Active confirmed Problem 33714289 Essential hypert ension (I10) Active confirmed Problem 2679223 Prediabetes (R73.09) Active confirmed Problem 744613135 History of hemat uria (Z87.448) Active confirmed Problem 21274122 Sciatica of left side (M54.32) Active confirmed Problem Sciatica (68688039) Right sided sciatica (M54.31) Active confirmed Problem 302472432 Pure hypercholesterolemia (E78.00) Active confirmed Vital Signs Blood pressure diastolic 60 mm Hg 02/20/2025 [place] ght is down 3 pounds since 12-12-24 Height 60 in 02/20/2025 weight is down 3 pounds since 12-12-24 Blood pressure systolic 162 mm Hg 02/20/2025 [place] ht is down 3 pounds since 12-12-24 Weight 150 lbs 02/20/2025 weight is down 3 pounds since 12-12-24 BMI 29.29 kg/m2 02/20/2025 weight is down 3 pounds since 12-12-24 Encounters Encounter Location Date Provider Diagnosis Ruddy Solorio MD [address] [place] [id number] 06/10/2024 Ruddy Solorio Essential hypertensi on I10 ; Hypercalcemia E83.52 and Pure hypercholesterolemia E78.00 Ruddy Solorio MD [address] [place] [id number] 11/29/2024 Ruddy Solorio Prediabetes R73.09 ; Essential hypertension I10 and Pure hypercholesterolemia E78.00 Ruddy Solorio MD [address] [id number] 02/13/2025 Ruddy Solorio Hypercalcemia E83.52 Ruddy Solorio MD [address] [id number] 02/20/2025 Ruddy Solorio Elevated BUN R79.9 ; Essential hypertension I10 and Encounter for administration of vaccine Z23 Ruddy Solorio MD [address] [place] [id number] 06/17/2024 Ruddy Solorio Hypercalcemia E83.52 ; Elevated serum creatinine R79.89 and Vaccine counseling Z71.85 Ruddy Solorio MD [address] [place] [id number] 12/12/2024 Ruddy Solorio Elevated BUN R79.9 ; Hypercalcemia E83.52 ; Prediabetes R73.09 and Essential hypertension I10 Ruddy Solorio MD [address] [place] [id number] 11/21/2024 Ruddy Solorio Pure hypercholestero lemia E78.00 Assessments Encounter Date Diagnosis (ICD Code) Assessment Notes Treatment Notes Treatment Clinical Notes Section Notes 06/10/2024 Essential hypertensi on (ICD-10 - I10) 06/10/2024 Hypercalcemia (ICD-1 0 - E83.52) 11/29/2024 Prediabetes (ICD-10 - R73.09) 02/13/2025 Hypercalcemia (ICD-1 0 - E83.52) 02/20/2025 Elevated BUN (ICD-10 - R79.9) will continue to monitor 02/20/2025 Essential hypertensi on (ICD-10 - I10) stable, will continue to monitor 06/17/2024 Hypercalcemia (ICD-1 0 - E83.52) has [...] 11/29/2024 Essential hypertensi on (ICD-10 - I10) 02/20/2025 Encounter for administration of vaccine (ICD-10 - Z23) HD flu vaccine administered 06/17/2024 Vaccine counseling (ICD-10 - Z71.85) discussed [...] 12/30/2010 Electrocardiogram (EKG) 09/28/2015 Electrocardiogram (EKG) 10/29/2018 XR DEXA axial skeleton 11/29/2020 Future Test Test Name Order Date Blood Urea Nitrogen 12/15/2024 Creatinine 12/15/2024 Next Appt Details Provider Name:Ruddy bunn, 12/07/2025 07:45:00 AM, [address] [place] [address], [address], [place], [place], [phone], Provider Name:Ruddy bunn, 12/14/2025 09:30:00 AM, [address], [address], [place], [place], [phone], Insurance Providers Payer Name Payer Address Payer Phone Subscriber Number Group Number Insured Name Patient Relationship to Insured Coverage Start Date Coverage End Date MED[employer] [address] [place] [address] [id number] Melia Self - patient is the insured MEDEX BC OF [facility] [address] [place] [address] [id number] Dave Hardine Self - patient is the insured Medical (General) History Medical History History ICD Code hematuria work up colonoscopy 2005 due in 10 y ears; colonoscopy w/CT Colonography done by Dr. Day 08/24/17 Hysterectomy 12-27-1991 Surgical History Surgery Date(Month/Year) Total Hysterctomy and Appendectomy 1992
== END 2025-02-20 15:45 | disposition home or self-care (01) ==
LOC: HO.LNP 15:44
PROVIDERS: Visit Provider Internal Medicine
DX: Z13.1 Encounter for screening for diabetes mellitus (principal)
CPT/HCPCS: 82565; 84520

== ENCOUNTER 2025-04-27 09:08 | Outpatient (REF) | payer MEDICARE, SELFPAY ==
--- OUTSIDE RECORDS SUMMARY | 2023-11-23 05:12 | XMS_ITS ---
Author Organization Ruddy Solorio MD Address [address] [place] [phone] Care Team Providers Care Bus Inspector Name Role Phone HemalathaRuddy rudolph Primary Care Provider [phone] REASON FOR VISIT refill Medications Medication SIG (Take, Route, Fr equency, Duration) Notes Start Date End Date Status Simvastatin 20 MG 1 tablet every eveni ng Orally Once a day for 90 days Active Encounters Encounter Location Date Provider Diagnosis Ruddy Solorio MD [address] [place] [phone] 11/23/2023 Ruddy Solorio Pure hypercholestero lemia E78.00 Assessments Encounter Date Diagnosis (ICD Code) Assessment Notes Treatment Notes Treatment Clinical Notes Section Notes 11/23/2023 Pure hypercholesterolemia (ICD-10 - E78.00) Plan Of Treatment Medication Medication Name Sig Start Date Stop Date Notes Simvastatin 20 MG 1 tablet every eveni ng Orally Once a day for 90 days Next Appt Details Provider Name:Ruddy bunn, 12/07/2025 07:45:00 AM, [address], [address], [place], [place], [phone], Provider Name:Ruddypoppy bunn, 12/14/2025 09:30:00 AM, [address] [facility], [address], [place], [phone], Progress Notes * Nicci HARDINOB: 4 (78 yo F)Acc No.[id number]:11/23/2023 Patient: Melia Page :1945 A ge:78 Y S ex:Female Address:[address] [place] [id number] * Refills Refill Simvastatin Tablet, 20 MG, Orally, 90, 1 tablet every evening, Once a day, 90 days, Refills=3 * true * Date: Generated for Charles varghese/Holly/Yuriyitting on: 06/27/2024 11:23 AM EST
--- OUTSIDE RECORDS SUMMARY | 2023-11-30 03:00 | XMS_ITS ---
Author Organization Ruddy Solorio MD Address [address] [place] [phone] Care Team Providers Care Database Programmer Analyst Name Role Phone Ruddy Solorio Primary Care Provider [phone] Results Component Value Reference Range Notes Complete Blood Count Auto Di ff Reviewed date:11/30/2023 05:16:33 PM Interpretation: Performing Lab:[facility], [address] [place] [phone] Notes/Report: White Blood Count 6.9 4.8-10.8 X10*3/uL Red Blood Count 3.62 4.20-5.50 X10*6/uL Hemoglobin 11.7 12.0-16.0 g/dl Hematocrit 35.2 37.0-47.0 % Mean Corpuscular Volume 97.2 80.0-98.0 fL Mean Corpuscular Hemoglobin 32.3 27.0-33.0 pg Mean Corpuscular HGB Conc 33.2 31.0-35.0 g/dl Red Cell Distribution Width 13.2 11.0-16.0 % Platelet Count 237 160-400 X10*3/uL Mean Platelet Volume 10.0 9.4-12.3 fL Neutrophils Percent Auto 59.7 45-73 % Imm Gran Pct Auto 0.3 0.0-0.4 % Lymphocytes Percent Auto 27.3 20-40 % Monocytes Percent Auto 8.7 2-11 % Eosinophils Percent Auto 2.6 0-4 % Basophils Percent Auto 1.4 0-2 % NRBC Pct Auto 0.0 0.0-0.2 /100WBC Neutrophils Absolute Auto 4.1 2.0-8.3 x10*3/u L Imm Gran Abs Auto 0.02 0.00-0.03 X10*3/uL Lymphocytes Absolute Auto 1.9 1.2-4.9 X10*3/u L Monocytes Absolute Auto 0.6 0.1-1.2 X10*3/uL Eosinophils Absolute Auto 0.2 0.0-0.4 X10*3/u L Basophils Absolute Auto 0.1 0.0-0.2 X10*3/uL NRBC Abs Auto 0.000 0.0-0.012 X10*3/uL Comprehensive [place]. Panel Fa st Reviewed date:11/30/2023 05:20:31 PM Interpretation: Performing Lab:[facility], [address] [place] [phone] Notes/Report: Sodium 144 135-145 mmol/L Potassium 4.1 3.3-5.1 mmol/L Chloride 110 96-108 mmol/L Carbon Dioxide 23 22-29 mmol/L Anion Gap 15 12-20 Blood Urea Nitrogen 25 9-16 mg/dL Creatinine 1.03 0.5-1.4 mg/dL Estimated Glomerular Filt Rate 52 NOTE: For -[place] individuals, multiply the result by 1.210. Chronic Kidney Disease: Estimated GFR < 60 mL/min/1.73m2 Severe Kidney Disease: Estimated GFR < 15 mL/min/1.73m2 Glucose Fasting 111 60-99 mg/dL A fasting glucose from 100-125 mg/dl is considered impaired (pre-diabetes). Calcium 10.7 8.4-10.2 mg/dL Bilirubin Total 0.5 0.0-1.0 mg/dL Aspartate Amino Transferase 17 5-31 U/L Alanine Aminotransferase 15 0-31 U/L Total Protein 7.0 6.5-8.0 g/dL Albumin Level 4.1 3.5-5.0 g/dL Alkaline Phosphatase 49 39-117 U/L Lipid Panel Reviewed date:11/30/2023 05:12:14 PM Interpretation: Performing Lab:[facility], [address] [place] [phone] Notes/Report: Triglycerides 142 <150 mg/dL Desirable Triglyceride: less than 150 mg/dL Borderline High Triglyceride 150-199 mg/dL High Triglyceride: 200-499 mg/dL Very High Triglyceride: greater than or equal to 5OO mg/dL Cholesterol 164 <200 mg/dL Desirable Cholesterol: less than 200 mg/dL Borderline High Cholesterol: 200-239 mg/dL High Cholesterol: greater than 239 mg/dL LDL Cholesterol Calculated 90 <100 mg/dL Desirable LDL: less than 100 mg/dL Near Optimal/Above Optimal LDL: 110-129 mg/dL Borderline High LDL: 130-159 mg/dL High LDL: 160-189 mg/dL Very High LDL: greater than or equal to 190 mg/dL HDL Cholesterol 46 >40 mg/dL Desirable HDL: greater than 40 mg/dL Note: This HDL assay may give artificially low results in patients with liver disease. UA ClnCatch+Micro w/rflx Cul t Reviewed date:11/30/2023 05:18:22 PM Interpretation: Performing Lab:[facility], [address] [place] [phone] Notes/Report: Urine, Clean Catch Color Urine Yellow Appearance Urine Clear PH 5.5 5.0-9.0 Glucose Urine UA Negative Negative mg/dL Urine Blood Small (1+) Negative Specific [place] - Urine 1.015 1.005-1.025 Urine Protein Negative Neg-Trace mg/dL Urine Ketones Negative Negative mg/dL Nitrite Urine Negative Negative Leukocyte Esterase Urine Moderate (2+) Negative RBC Urine 0-2 0-2 /HPF WBC Urine 0-5 0-5 /HPF Squamous Epithelial Cell Urine 0-2 0-2 /HPF Bacteria Urine None Seen None Seen Hyaline Casts Urine 0-2 0-2 /LPF REASON FOR VISIT FASTING LABS Encounters Encounter Location Date Provider Diagnosis Ruddy Solorio MD [address] [place] [address] Drive [address] [place], [place] [phone] 11/30/2023 Ruddy Alissadonna Prediabetes R73.09 ; Essential hypertension I10 and Pure hypercholesterolemia E78.00 Assessments Encounter Date Diagnosis (ICD Code) Assessment Notes Treatment Notes Treatment Clinical Notes Section Notes 11/30/2023 Prediabetes (ICD-10 - R73.09) 11/30/2023 Essential hypertensi on (ICD-10 - I10) 11/30/2023 Pure hypercholesterolemia (ICD-10 - E78.00) Plan Of Treatment Next Appt Details Provider Name:Ruddy Prado ier, 12/07/2025 07:45:00 AM, [address] [facility], [address], [place], [place], [phone], Provider Name:Ruddy Nath Alissaashanti ier, 12/14/2025 09:30:00 AM, [address] [place] [address], [address], [place], [place], [phone], Progress Notes * Dave HARDINCorinaOB: 4 (80 yo F)Acc No.[id number]:11/30/2023 Progress Note Patient: Melia ST Provider: Ben Solorio MD :1945 A ge:78 Y S ex:Female Date:11/30/2023 Address:[address] [place], [place] [phone] Subjective: * Chief Complaints: * 1 . FASTING LABS. * Medical History: Objective: * Vitals: Assessment: * Assessment: 1. P rediabetes - R73.09 (Primary) 2 . E ssential hypertension - I10 ? 3 . P ure hypercholesterolemia - E78.00 Plan: * Treatment: 2. E ssential hypertension L AB: Complete Blood Count Auto Diff (Collection Date & Time - 11/30/2023 08:00 AM) L AB: Comprehensive [place]. Panel Fast (Collection Date & Time - 11/30/2023 08:00 AM) L AB: Lipid Panel (Collection Date & Time - 11/30/2023 08:00 AM) L AB: UA ClnCatch+Micro w/rflx Cult (Collection Date & Time - 11/30/2023 08:00 AM) 3. P ure hypercholesterolemia L AB: Complete Blood Count Auto Diff (Collection Date & Time - 11/30/2023 08:00 AM) L AB: Comprehensive [place]. Panel Fast (Collection Date & Time - 11/30/2023 08:00 AM) L AB: Lipid Panel (Collection Date & Time - 11/30/2023 08:00 AM) L AB: UA ClnCatch+Micro w/rflx Cult (Collection Date & Time - 11/30/2023 08:00 AM) * Procedure Codes: 3 6415 VENIPUNCT, ROUTINE* * * The named appointment provid er may or may not be the originator of this progress note, and it is not deemed complete until electronically signed by the appointment provider. Sign off status: Pending * Provider: Ben Solorio MD Date: 0 11/30/2023 Generated for Charles varghese/Holly/Shelly on: 1 06/27/2024 11:24 AM EST
--- OUTSIDE RECORDS SUMMARY | 2023-12-07 05:30 | XMS_ITS ---
Author Organization Ruddy Solorio MD Address [address] [place] [phone] Care Team Providers Care Restaurant And Bar Manager Name Role Phone Ruddy Solorio Primary Care Provider [phone] Allergies No Known Allergies Results Component Value Reference Range Notes TSH reflex Free T4 Reviewed date:12/08/2023 12:45:58 PM Interpretation: Performing Lab:[facility], [address] [place] [phone] Notes/Report: TSH reflex Free T4 1.89 0.32-4.0 uIU/mL REASON FOR VISIT review labs, c/o neck pain x 1 month and fatigue Medications Medication SIG (Take, Route, Fr equency, Duration) Notes Start Date End Date Status Ibuprofen 800 MG 1 tablet with food o r milk Orally Three times a day for 30 day(s) 01/19/2017 Not-Taking Simvastatin 20 MG 1 tablet every eveni ng Orally Once a day for 90 days Active Social History Tobacco Use: Social History Observation Description Date Details (start date - stop date) Never Smoker NA - NA Tobacco Use/Smoking Question Answer Notes Patient is a nonsmoker Additional Findings: Tobacco Non-User Cu rrent non-smoker, currently using no form of tobacco Alcohol Screen Question Answer Notes Did you have a drink containing alcohol in the p ast year? No Points 0 Interpretation Negative Vital Signs Blood pressure systolic 152 mm Hg 12/07/19 24 Blood pressure diastolic 60 mm Hg 024 Height 60 in 12/07/2023 Weight 152 lbs 12/07/2023 BMI 29.68 kg/m2 12/07/2023 weight is up 2 pounds since 05-28-23 Encounters Encounter Location Date Provider Diagnosis Ruddy Solorio MD [address] [place] [address] [place] [phone] 12/07/2023 Ruddy Solorio History of hematuria Z87.448 ; Essential hypertension I10 ; Hypercalcemia E83.52 and Lethargy R53.83 Assessments Encounter Date Diagnosis (ICD Code) Assessment Notes Treatment Notes Treatment Clinical Notes Section Notes 12/07/2023 History of hematuria (ICD-10 - Z87.448) has been evaluated in past 12/07/2023 Essential hypertension (ICD-10 - I10) doing well 12/07/2023 Hypercalcemia (ICD-10 - E83.52) stablde 12/07/2023 Lethargy (ICD-10 - R53.83) Plan Of Treatment Treatment Notes Assessment Notes History of hematuria has been evaluated in past Essential hypertension doing well Hypercalcemia stablde Next Appt Details Follow Up: 6 Months, Reason: Provider Name:Ruddy bunn, 12/07/2025 07:45:00 AM, [address] [place] [address], [address], [phone], Provider Name:Ruddy bunn, 12/14/2025 09:30:00 AM, [address] [place] [address], [address], [phone], Progress Notes * Reena HARDIN: 4 (78 yo F)Acc No.[id number]:12/07/2023 Patient: Pham waiteMelia Provider: Ben Solorio MD :1945 A ge:78 Y S ex:Female Date:12/07/2023 Address:Rafal Hickman [id number] Subjective: * Chief Complaints: * R eview labsC/o neck pain x 1 month and fatigue * HPI: D epression Screening: PHQ-9 L ittle interest or pleasure in doing things N ot at all, F eeling down, depressed, or hopeless N ot at all, T rouble falling or staying asleep, or sleeping too much N ot at all, F eeling tired or having little energy N ot at all, P oor appetite or overeating N ot at all, F eeling bad about yourself or that you are a failure, or have let yourself or your family down N ot at all, T rouble concentrating on things, such as reading the newspaper or watching television N ot at all, M oving or speaking so slowly that other people could have noticed; or the opposite, being so fidgety or restless that you have been moving around a lot more than usual N ot at all, T houghts that you would be better off or of hurting yourself in some way N ot at all, T otal Score 0 . I nterpretation and Intervention D epression Screening Findings N egative, F ollow-Up for Depression : review of PHQ-9 found negative result, no follow-up needed. C ommunication Needs: Communication Needs D oes the patient have a hearing impairment N o, D oes the patient have a vision impairment? Y es, I f yes, what is the vision impairment? G lasses, D oes the patient have a cognition impairment? N o. F all Risk: History H ave you had any falls with injury in the past year? N o, H ave you had two or more falls in the past year? N o. S YOSHI Questions: SDOH Questions I n the past year have you been worried about losing housing? N o, I n the past year have you or any family members you live with been unable to get any of the following when it was really needed? Check all that apply: N one. S ymptom(s): patient is a 78 yo female here for review of recent labs anf follow up of chronic issues, woke up one morning and had pain in neck. sore with certain movements.has been easing up a bit. * ROS: R espiratory: Patient denies s hortness of breath at rest shortness of breath with exertion. C ardiovascular: Patient denies c hest pain with exertion chest pain at rest. G astrointestinal: Patient denies c hange in bowel habits abdominal pain. G enitourinary: Patient denies f requent urination difficulty urinating.? * Medical History: * Surgical History: * Hospitalization/Major Diagno stic Procedure: * Family History: F ather: 78 yrs. M other: 88 yrs, pernicious anemia. 1 brother(s) . 3 son(s) . . Father-Respiratory Mother-Failure to thrive 1 brother-MVA, Denies mental health/substance abuse family history, No pertinent family medical history, Denies mental health/substance abuse family history, Denies mental health/substance abuse family history. * Social History: T obacco Use: T obacco Use/Smoking P atient is a n onsmoker, A dditional Findings: Tobacco Non-User C urrent non-smoker, currently using no form of tobacco. D rugs/Alcohol: A lcohol Screen D id you have a drink containing alcohol in the past year? N o, P oints 0 , I nterpretation N egative. M iscellaneous: C affeine: yes, frequency:, 2-3 cups per day. Children: yes. no Community involvements. no Exercise. Home smoke detector use: yes. Living with: family. Marital status: . Occupation: weeks/months/years, retired. Pets: none. no Travel outside of the [place]. * Medications: T akingSimvastatin 20 MG Tablet 1 tablet every evening Orally Once a dayTaking Simvastatin 20 MG Tablet 1 tablet every evening Orally Once a dayNot-Taking/PRNIbuprofen 800 MG Tablet 1 tablet with food or milk Orally Three times a dayMedication List reviewed and reconciled with the patientNot- Taking/PRN Ibuprofen 800 MG Tablet 1 tablet with food or milk Orally Three times a dayMedication List reviewed and reconciled with the patient * Allergies: N .K.D.A.yes[Allergies Verified] Objective: * Vitals: H t: 60, Wt:152, BMI:29.68, BP:152/60, Repeat BP:120/70 weight is up 2 pounds since 05-28-23. * P ast Orders: L ab:UA ClnCatch+Micro w/rflx Cult (Order Date - 11/30/2023) (Collection Date - 11/30/2023) Value Reference Range Color Urine Yellow - Appearance Urine Clear - PH 5.5 5.0-9.0 - Glucose Urine UA Negative Negative - mg/dL Urine Blood Small (1+) A Negative - Specific [place] - Urine 1.015 1.005-1.025 - Urine Protein Negative Neg-Trace - mg/dL Urine Ketones Negative Negative - mg/dL Nitrite Urine Negative Negative - Leukocyte Esterase Urine Moderate (2+) A Negative - RBC Urine 0-2 0-2 - /HPF WBC Urine 0-5 0-5 - /HPF Squamous Epithelial Cell Urine 0-2 0-2 - /HP F Bacteria Urine None Seen None Seen - Hyaline Casts Urine 0-2 0-2 - /LPF L ab:Complete Blood Count Auto Diff (Order Date - 11/30/2023) (Collection Date - 11/30/2023) Value Reference Range White Blood Count 6.9 4.8-10.8 - X10*3/uL Red Blood Count 3.62 L 4.20-5.50 - X10*6/uL Hemoglobin 11.7 L 12.0-16.0 - g/dl Hematocrit 35.2 L 37.0-47.0 - % Mean Corpuscular Volume 97.2 80.0-98.0 - fL Mean Corpuscular Hemoglobin 32.3 27.0-33.0 - pg Mean Corpuscular HGB Conc 33.2 31.0-35.0 - g/ dl Red Cell Distribution Width 13.2 11.0-16.0 - % Platelet Count 237 160-400 - X10*3/uL Mean Platelet Volume 10.0 9.4-12.3 - fL Neutrophils Percent Auto 59.7 45-73 - % Imm Gran Pct Auto 0.3 0.0-0.4 - % Lymphocytes Percent Auto 27.3 20-40 - % Monocytes Percent Auto 8.7 2-11 - % Eosinophils Percent Auto 2.6 0-4 - % Basophils Percent Auto 1.4 0-2 - % NRBC Pct Auto 0.0 0.0-0.2 - /100WBC Neutrophils Absolute Auto 4.1 2.0-8.3 - x10* 3/uL Imm Gran Abs Auto 0.02 0.00-0.03 - X10*3/uL Lymphocytes Absolute Auto 1.9 1.2-4.9 - X10* 3/uL Monocytes Absolute Auto 0.6 0.1-1.2 - X10*3/ uL Eosinophils Absolute Auto 0.2 0.0-0.4 - X10* 3/uL Basophils Absolute Auto 0.1 0.0-0.2 - X10*3/ uL NRBC Abs Auto 0.000 0.0-0.012 - X10*3/uL L ab:Comprehensive [place]. Panel Fast (Order Date - 11/30/2023) (Collection Date - 11/30/2023) Value Reference Range Sodium 144 135-145 - mmol/L Bilirubin Total 0.5 0.0-1.0 - mg/dL Aspartate Amino Transferase 17 5-31 - U/L Alanine Aminotransferase 15 0-31 - U/L Total Protein 7.0 6.5-8.0 - g/dL Albumin Level 4.1 3.5-5.0 - g/dL Alkaline Phosphatase 49 39-117 - U/L Potassium 4.1 3.3-5.1 - mmol/L Chloride 110 H 96-108 - mmol/L Carbon Dioxide 23 22-29 - mmol/L Anion Gap 15 12-20 - Blood Urea Nitrogen 25 H 9-16 - mg/dL Creatinine 1.03 0.5-1.4 - mg/dL Estimated Glomerular Filt Rate 52 - Glucose Fasting 111 H 60-99 - mg/dL Calcium 10.7 H 8.4-10.2 - mg/dL L ab:Lipid Panel (Order Date - 11/30/2023) (Collection Date - 11/30/2023) Value Reference Range Triglycerides 142 <150 - mg/dL Cholesterol 164 <200 - mg/dL LDL Cholesterol Calculated 90 <100 - mg/dL HDL Cholesterol 46 >40 - mg/dL * Examination: G eneral Examination: GENERAL APPEARANCE: alert, well hydrated, in no distress , female. HEAD: normocephalic. EYES: BOTH EYES, normal. EARS: BOTH EARS, normal. THROAT: no erythema, no exudate, pharynx normal. NECK/THYROID: no carotid bruit, no cervical lymphadenopathy. LYMPH NODES: no cervical adenopathy. SKIN: good turgor. HEART: no murmurs, rubs, gallops, regular rate and rhythm. LUNGS: no wheezes, rales, rhonchi, good air movement, clear to auscultation bilaterally. BREASTS: no masses palpable bilaterally. ABDOMEN: no hepatosplenomegaly, , soft, nontender, nondistended. RECTAL EXAM: no masses palpable, stool guaiac negative.? Assessment: * Assessment: 1. H istory of hematuria - Z87.448 (Primary) 2 . E ssential hypertension - I10 3 .?Hypercalcemia - E83.52 4 . L ethargy - R53.83 Plan: * Treatment: 2. E ssential hypertension L AB: Blood Urea Nitrogen (Ordered for 06/08/2024) L AB: Creatinine (Ordered for 06/08/2024) L AB: Calcium (Ordered for 06/08/2024) Notes: doing well. 3. H ypercalcemia L AB: Blood Urea Nitrogen (Ordered for 06/08/2024) L AB: Creatinine (Ordered for 06/08/2024) L AB: Calcium (Ordered for 06/08/2024) Notes: stablde. 4. L ethargy L AB: TSH reflex Free T4 * Procedure Codes: 3 6415 VENIPUNCT, ROUTINE* * Preventive Medicine: Counseling: C are goal follow-up plan: C ounseling for abnormal BMI provided?Yes, A junito Normal BMI Follow-up Ben lewis encouragement to exercise. * Follow Up: 6 Months * * Sign off status: Completed true * Provider: Ben Solorio MD Date: 0 12/07/2023 Generated for Charles varghese/Holly/Shelly on: 06/27/2024 11:25 AM EST History and Physical Notes * HPI (History of Present Illness) Category Sub-Category Detail Notes Category Not es Symptom(s) patient is a 78 yo female here for review of recent labs anf follow up of chronic issues, woke up one morning and had pain in neck. sore with certain movements.has been easing up a bit Depression Screening PHQ-9 Little inte rest or pleasure in doing things: Not at all Feeling down, depressed, or hopeless: No t at all Trouble falling or staying asleep, or sl eeping too much: Not at all Feeling tired or having little energy: N ot at all Poor appetite or overeating: Not at all Feeling bad about yourself o r that you are a failure, or have let yourself or your family down: Not at all Trouble concentrating on thi ngs, such as reading the newspaper or watching television: Not at all Moving or speaking so slowly that other people could have noticed; or the opposite, being so fidgety or restless that you have been moving around a lot more than usual: Not at all Thoughts that you would be b cristopher off or of hurting yourself in some way: Not at all Total Score: 0 Interpretation and Intervention Depression Ayala borrero Findings: Negative Follow-Up for Depression: : review of PH Q-9 found negative result, no follow-up needed SDOH Questions SDOH Questions In the past year have you been worried about losing housing?: No In the past year have you or any family members you live with been unable to get any of the following when it was really needed? Check all that apply:: None Fall Risk History Have you had any falls with injury i n the past year?: No Have you had two or more falls in the st year?: No Communication Needs Communication Needs Does the patient have a hearing impairment: No Does the patient have a vision impairmen t?: Yes If yes, what is the vision impairment?: Glasses Does the patient have a cognition impair ment?: No Examination Category Sub-Category Detail Notes Category Not es General Examination GENERAL APPEARANCE: alert, w ell hydrated, in no distress , female HEAD: normocephalic EYES: BOTH EYES, normal EARS: BOTH EARS, normal THROAT: no erythema, no exud ate, pharynx normal NECK/THYROID: no carotid bruit, no cervical lymphadenopathy HEART: no murmurs, rubs, ga llops, regular rate and rhythm LUNGS: no wheezes, rales, r honchi, good air movement, clear to auscultation bilaterally ABDOMEN: no hepatosplenomegal y, , soft, nontender, nondistended SKIN: good turgor BREASTS: no masses palpable b ilaterally LYMPH NODES: no cervical adenopat hy RECTAL EXAM: no masses palpable, stool guaiac negative
--- OUTSIDE RECORDS SUMMARY | 2024-06-10 03:00 | XMS_ITS ---
Author Organization Ruddy Solorio MD Address [address] [place], [place] [id number] Care Team Providers Care Pumper Gager Apprentice Name Role Phone LyndseyMariselan Primary Care Provider [phone] Results Component Value Reference Range Notes Liver Panel Reviewed date:06/10/2024 01:57:13 PM Interpretation: Performing Lab:[facility], [address] [place] [phone] Notes/Report: Bilirubin Total 0.4 0.0-1.0 mg/dL Bilirubin Direct 0.1 0.0-0.5 mg/dL Aspartate Amino Transferase 26 5-31 U/L Alanine Aminotransferase 18 0-31 U/L Total Protein 6.6 6.5-8.0 g/dL Albumin Level 3.9 3.5-5.0 g/dL Alkaline Phosphatase 54 39-117 U/L Blood Urea Nitrogen Reviewed date:06/17/2024 03:11:51 PM Interpretation:see back 06-17-24 Performing Lab:[facility] [address] [phone] Notes/Report: Blood Urea Nitrogen 26 9-16 mg/dL Creatinine Reviewed date:06/10/2024 01:56:17 PM Interpretation: Performing Lab:[facility], [address] [place] [phone] Notes/Report: Creatinine 1.29 0.5-1.4 mg/dL Estimated Glomerular Filt Rate 40 Chronic Kidney Disease: Estimated GFR < 60 mL/min/1.73m2 Severe Kidney Disease: Estimated GFR < 15 mL/min/1.73m2 Calcium Reviewed date:06/10/2024 01:55:49 PM Interpretation: Performing Lab:[address] [phone] Notes/Report: Calcium 10.0 8.4-10.2 mg/dL Lipid Panel with Reflex Reviewed date:06/10/2024 02:59:30 PM Interpretation: Performing Lab:[facility], [address] [place] [phone] Notes/Report: Triglycerides 118 <150 mg/dL Desirable Triglyceride: less than 150 mg/dL Borderline High Triglyceride 150-199 mg/dL High Triglyceride: 200-499 mg/dL Very High Triglyceride: greater than or equal to 5OO mg/dL Cholesterol 157 <200 mg/dL Desirable Cholesterol: less than 200 mg/dL Borderline High Cholesterol: 200-239 mg/dL High Cholesterol: greater than 239 mg/dL LDL Cholesterol Calculated 89 <100 mg/dL Desirable LDL: less than 100 mg/dL Near Optimal/Above Optimal LDL: 110-129 mg/dL Borderline High LDL: 130-159 mg/dL High LDL: 160-189 mg/dL Very High LDL: greater than or equal to 190 mg/dL HDL Cholesterol 45 >40 mg/dL Desirable HDL: greater than 40 mg/dL Note: This HDL assay may give artificially low results in patients with liver disease. REASON FOR VISIT fasting lipids, bun,creatine calcuim Encounters Encounter Location Date Provider Diagnosis Ruddy Solorio MD [address] [place], [place] [id number] 06/10/2024 Ruddy Solorio Essential hypertensi on I10 ; Hypercalcemia E83.52 and Pure hypercholesterolemia E78.00 Assessments Encounter Date Diagnosis (ICD Code) Assessment Notes Treatment Notes Treatment Clinical Notes Section Notes 06/10/2024 Essential hypertensi on (ICD-10 - I10) 06/10/2024 Hypercalcemia (ICD-1 0 - E83.52) 06/10/2024 Pure hypercholesterolemia (ICD-10 - E78.00) Plan Of Treatment Next Appt Details Provider Name:Ruddy Prado ier, 12/07/2025 07:45:00 AM, [address], [address], [place], [place], [phone], Provider Name:Ruddy Prado ier, 12/14/2025 09:30:00 AM, [address], [address], [place], [place], [phone], Progress Notes * Nicci HARDINOB: 4 (80 yo F)Acc No.[id number]:06/10/2024 Progress Note Patient: Melia ST Provider: Ben Solorio MD :1945 A ge:79 Y S ex:Female Date:06/10/2024 Address:[address] [place], [place] [id number] Subjective: * Chief Complaints: * 1 . Fasting lipids, bun,creatine calcuim. * Medical History: Objective: * Vitals: Assessment: * Assessment: 1. E ssential hypertension - I10 (Primary) 2 . H ypercalcemia - E83.52 3 . P ure hypercholesterolemia - E78.00 Plan: * Treatment: 2. H ypercalcemia L AB: Blood Urea Nitrogen (Collection Date & Time - 06/10/2024 08:00 AM) L AB: Creatinine (Collection Date & Time - 06/10/2024 08:00 AM) L AB: Calcium (Collection Date & Time - 06/10/2024 08:00 AM) 3. P ure hypercholesterolemia L AB: Liver Panel (Collection Date & Time - 06/10/2024 08:00 AM) L AB: Lipid Panel with Reflex (Collection Date & Time - 06/10/2024 08:00 AM) * Procedure Codes: 3 6415 VENIPUNCT, ROUTINE* * * The named appointment provid er may or may not be the originator of this progress note, and it is not deemed complete until electronically signed by the appointment provider. Sign off status: Pending * Provider: Ben Solorio MD Date: 0 06/10/2024 Generated for Charles varghese/Holly/Shelly on: 06/27/2024 11:23 AM EST
--- OUTSIDE RECORDS SUMMARY | 2024-06-17 05:45 | XMS_ITS ---
Author Organization Ruddy Solorio MD Address [address] [place] [phone] Care Team Providers Care Executive Legal Secretary Name Role Phone Lyndsey Ruddy Primary Care Provider [phone] Allergies No Known Allergies REASON FOR VISIT 6 month/ must see BUN Medications Medication SIG (Take, Route, Fr equency, Duration) Notes Start Date End Date Status Simvastatin 20 MG 1 tablet every eveni ng Orally Once a day for 90 days Active Ibuprofen 800 MG 1 tablet with food o r milk Orally Three times a day for 30 day(s) 01/19/2017 Not-Taking Vital Signs Blood pressure systolic 152 mm Hg 06/17/19 25 Blood pressure diastolic 60 mm Hg 025 Height 60 in 06/17/2024 Weight 150 lbs 06/17/2024 BMI 29.29 kg/m2 06/17/2024 weight is down 2 pounds [facility] e 7-1-24 Encounters Encounter Location Date Provider Diagnosis Ruddy Solorio MD [address] [place] [phone] 06/17/2024 Ruddy Solorio Hypercalcemia E83.52 ; Elevated serum creatinine R79.89 and Vaccine counseling Z71.85 Assessments Encounter Date Diagnosis (ICD Code) Assessment Notes Treatment Notes Treatment Clinical Notes Section Notes 06/17/2024 Hypercalcemia (ICD-10 - E83.52) has returned to normal, will continue to monitor 06/17/2024 Elevated serum creatinine (ICD-10 - R79.89) refrain from NSAID usage, discussed findings of recent blood test, pending future labs 06/17/2024 Vaccine counseling (ICD-10 - Z71.85) discussed need for shingles and pneumovax Plan Of Treatment Treatment Notes Assessment Notes Hypercalcemia has returned to norm al, will continue to monitor Elevated serum creatinine refrain from N SAID usage, discussed findings of recent blood test, pending future labs Vaccine counseling discussed need for s hingles and pneumovax Future Test Test Name Order Date Blood Urea Nitrogen 12/15/2024 Creatinine 12/15/2024 Next Appt Details Provider Name:Ruddy Prado ier, 12/07/2025 07:45:00 AM, [address] [place] [address], [address] [place] [address], [phone], Provider Name:Ruddy Pham Eve ier, 12/14/2025 09:30:00 AM, [address] [place] [address], Suite [facility], [place], [place], [phone], Progress Notes * Nicci HARDINOB: 4 (79 yo F)Acc No.[id number]:06/17/2024 Patient: Melia Page Provider: Ben Solorio MD :1945 A ge:79 Y S ex:Female Date:06/17/2024 Address:[address] [place] [address] [facility] Subjective: * Chief Complaints: * 6 month/ must see BUN * HPI: S ymptom(s): patient is a 79 yo female here for 6month follow up visit. * ROS: G eneral/Constitutional: Denies C hills. D enies F atmelvine. D enies F ever. D enies H eadache. E NT: Patient denies d ecreased sense of smell , any loss of taste , sore throat. D enies S ore throat. R espiratory: Denies C ough. D enies S hortness of breath at rest. D enies S hortness of breath with exertion. G astrointestinal: Denies D iarrhea. D enies N ausea. M usculoskeletal: Patient denies m uscle aches. P eripheral Vascular: Patient denies r ed and blue toes. * Medical History: * Surgical History: * Hospitalization/Major Diagno stic Procedure: * Medications: T akingSimvastatin 20 MG Tablet [...] Verified] Objective: * Vitals: H t: 60, Wt:150, BMI:29.29, BP:152/60, Repeat BP:115/70 weight is down 2 pounds since 12-07-23. * P ast Orders: L ab:Calcium (Order Date - 06/10/2024) (Collection Date - 06/10/2024) Value Reference Range Calcium 10.0 8.4-10.2 - mg/dL L ab:Lipid Panel with Reflex (Order Date - 06/10/2024) (Collection Date - 06/10/2024) Value Reference Range Triglycerides 118 <150 - mg/dL Cholesterol 157 <200 - mg/dL LDL Cholesterol Calculated 89 <100 - mg/dL HDL Cholesterol 45 >40 - mg/dL L ab:Liver Panel (Order Date - 06/10/2024) (Collection Date - 06/10/2024) Value Reference Range Bilirubin Total 0.4 0.0-1.0 - mg/dL Bilirubin Direct 0.1 0.0-0.5 - mg/dL Aspartate Amino Transferase 26 5-31 - U/L Alanine Aminotransferase 18 0-31 - U/L Total Protein 6.6 6.5-8.0 - g/dL Albumin Level 3.9 3.5-5.0 - g/dL Alkaline Phosphatase 54 39-117 - U/L L ab:Creatinine (Order Date - 06/10/2024) (Collection Date - 06/10/2024) Value Reference Range Creatinine 1.29 0.5-1.4 - mg/dL Estimated Glomerular Filt Rate 40 - * Examination: G eneral Examination: GENERAL APPEARANCE: a lert, well hydrated, in no distress.? HEAD: n ormocephalic. SKIN: g ood turgor. HEART: n o murmurs, rubs, gallops. LUNGS: n o wheezes, rales, rhonchi , good air movement , clear to auscultation bilaterally. Assessment: * Assessment: 1. H ypercalcemia - E83.52 (Primary) 2 . E levated serum creatinine - R79.89 3 .?Vaccine counseling - Z71.85 Plan: * Treatment: 2. E levated serum creatinine Notes: refrain from NSAID usage, discussed findings of recent blood test, pending future labs ? 3. V accine counseling Notes: discussed need for shingles and pneumovax * Procedure Codes: * * Sign off status: Completed true * Provider: Ben Solorio MD Date: 0 06/17/2024 Generated for Charles varghese/Holly/eTransmitting on: 06/27/2024 11:24 AM EST History and Physical Notes * HPI (History of Present Illness) Category Sub-Category Detail Notes Category Not es Symptom(s) patient is a 79 yo female here for 6month follow up visit. Examination Category Sub-Category Detail Notes Category Not es General Examination GENERAL APPEARANCE: alert, w ell hydrated, in no distress HEAD: normocephalic HEART: no murmurs, rubs, ga llops LUNGS: no wheezes, rales, r honchi , good air movement , clear to auscultation bilaterally SKIN: good turgor
--- OUTSIDE RECORDS SUMMARY | 2024-11-21 04:32 | XMS_ITS ---
Author Organization Ruddy Solorio MD Address [address] [place] [phone] Care Team Providers Care Heel Seat Pounder Name Role Phone HemalathaMarisela rudolphn Primary Care Provider REASON FOR VISIT refill Medications Medication SIG (Take, Route, Fr equency, Duration) Notes Start Date End Date Status Simvastatin 20 MG 1 tablet every eveni ng Orally Once a day for 90 days Active Encounters Encounter Location Date Provider Diagnosis Ruddy Solorio MD [address] [place] [phone] 11/21/2024 Ruddy Solorio Pure hypercholestero lemia E78.00 Assessments Encounter Date Diagnosis (ICD Code) Assessment Notes Treatment Notes Treatment Clinical Notes Section Notes 11/21/2024 Pure hypercholesterolemia (ICD-10 - E78.00) Plan Of Treatment Medication Medication Name Sig Start Date Stop Date Notes Simvastatin 20 MG 1 tablet every eveni ng Orally Once a day for 90 days Next Appt Details Provider Name:Ruddy bunn, 12/07/2025 07:45:00 AM, [address], [address], [place], [place], [phone], Provider Name:Ruddypoppy bunn, 12/14/2025 09:30:00 AM, [address] [facility], [address], [place], [phone], Progress Notes * Nicci HARDINOB: 4 (79 yo F)Acc No.[id number]:11/21/2024 Patient: Melia ST :1945 A ge:79 Y S ex:Female Address:[address] [place] [phone] * Refills Refill Simvastatin Tablet, 20 MG, Orally, 90, 1 tablet every evening, Once a day, 90 days, Refills=3 * true * Date: Generated for Charles varghese/Holly/Yuriyitting on: 06/27/2024 11:24 AM EST
--- OUTSIDE RECORDS SUMMARY | 2024-11-29 02:30 | XMS_ITS ---
Author Organization Ruddy Solorio MD Address [address] [place] [phone] Care Team Providers Care Counter Helper Name Role Phone Ruddy Solorio Primary Care Provider Results Component Value Reference Range Notes Complete Blood Count Auto Di ff Reviewed date:11/29/2024 12:32:06 PM Interpretation: Performing Lab:[facility], [address] [place] [phone] Notes/Report: White Blood Count 7.3 4.8-10.8 X10*3/uL Red Blood Count 3.68 4.20-5.50 X10*6/uL Hemoglobin 11.5 12.0-16.0 g/dl Hematocrit 36.2 37.0-47.0 % Mean Corpuscular Volume 98.4 80.0-98.0 fL Mean Corpuscular Hemoglobin 31.3 27.0-33.0 pg Mean Corpuscular HGB Conc 31.8 31.0-35.0 g/dl Red Cell Distribution Width 13.4 11.0-16.0 % Platelet Count 258 160-400 X10*3/uL Mean Platelet Volume 10.0 9.4-12.3 fL Neutrophils Percent Auto 54.6 45-73 % Imm Gran Pct Auto 0.3 0.0-0.4 % Lymphocytes Percent Auto 33.0 20-40 % Monocytes Percent Auto 8.1 2-11 % Eosinophils Percent Auto 2.2 0-4 % Basophils Percent Auto 1.8 0-2 % NRBC Pct Auto 0.0 0.0-0.2 /100WBC Neutrophils Absolute Auto 4.0 2.0-8.3 x10*3/u L Imm Gran Abs Auto 0.02 0.00-0.03 X10*3/uL Lymphocytes Absolute Auto 2.4 1.2-4.9 X10*3/u L Monocytes Absolute Auto 0.6 0.1-1.2 X10*3/uL Eosinophils Absolute Auto 0.2 0.0-0.4 X10*3/u L Basophils Absolute Auto 0.1 0.0-0.2 X10*3/uL NRBC Abs Auto 0.000 0.0-0.012 X10*3/uL Comprehensive [place]. Panel Fa st Reviewed date:12/13/2024 11:00:29 AM Interpretation:12-12-2024 Performing Lab:[facility], [address] [place] [phone] Notes/Report: Sodium 144 135-145 mmol/L Potassium 4.1 3.3-5.1 mmol/L Chloride 111 96-108 mmol/L Carbon Dioxide 25 22-29 mmol/L Anion Gap 12 12-20 Blood Urea Nitrogen 34 9-16 mg/dL Creatinine 1.27 0.5-1.4 mg/dL Estimated Glomerular Filt Rate 40 Chronic Kidney Disease: Estimated GFR < 60 mL/min/1.73m2 Severe Kidney Disease: Estimated GFR < 15 mL/min/1.73m2 Glucose Fasting 124 60-99 mg/dL A fasting glucose from 100-125 mg/dl is considered impaired (pre-diabetes). Calcium 10.4 8.4-10.2 mg/dL Bilirubin Total 0.5 0.0-1.0 mg/dL Aspartate Amino Transferase 23 5-31 U/L Alanine Aminotransferase 15 0-31 U/L Total Protein 6.7 6.5-8.0 g/dL Albumin Level 4.2 3.5-5.0 g/dL Alkaline Phosphatase 51 39-117 U/L Lipid Panel Reviewed date:11/29/2024 12:29:46 PM Interpretation: Performing Lab:[facility], [address] [place] [phone] Notes/Report: Triglycerides 106 <150 mg/dL Desirable Triglyceride: less than 150 mg/dL Borderline High Triglyceride 150-199 mg/dL High Triglyceride: 200-499 mg/dL Very High Triglyceride: greater than or equal to 5OO mg/dL Cholesterol 156 <200 mg/dL Desirable Cholesterol: less than 200 mg/dL Borderline High Cholesterol: 200-239 mg/dL High Cholesterol: greater than 239 mg/dL LDL Cholesterol Calculated 88 <100 mg/dL Desirable LDL: less than 100 mg/dL Near Optimal/Above Optimal LDL: 110-129 mg/dL Borderline High LDL: 130-159 mg/dL High LDL: 160-189 mg/dL Very High LDL: greater than or equal to 190 mg/dL HDL Cholesterol 47 >40 mg/dL Desirable HDL: greater than 40 mg/dL Note: This HDL assay may give artificially low results in patients with liver disease. Microalbumin, Random Reviewed date:11/29/2024 12:29:56 PM Interpretation: Performing Lab:[facility], [address] [place] [phone] Notes/Report: Creatinine Urine 86.19 Microalbumin Urine 20.0 Microalbum/Creatinine Ratio Ur 23.2 <30 ug/mg cr Albumin/Creatinine Ratio Reference Ranges: Normal: < 30 ug/mg creatinine Microalbuminuria: 30 - 300 ug/mg creatinine Clinical Albuminuria: > 300 ug/mg creatinine Hemoglobin A1c Reviewed date:11/29/2024 12:26:29 PM Interpretation: Performing Lab:[address] [phone] Notes/Report: Hemoglobin A1c % 5.5 <6.0 % Hemoglobin A1C Reference Range Adults: 4.8 - 6.0 % Non diabetic: < 6.0 % Goal: < 7.0 % Additional Action Suggested: > 8.0 % Note: Hemoglobin A1c results are invalid for patients with abnormal amounts of HbF. Blood transfusions may impact the HbA1c concentration in the patient sample. Estimated Average Glucose 111 eAG = Estimated average glucose which is %A1C expressed as average glucose, using the formula of the S3G-Qbnzlzh Average Glucose study (ADAG), Diabetes Care, Vol.31,#8, 2007 UA ClnCatch+Micro w/rflx Cul t Reviewed date:11/29/2024 12:44:00 PM Interpretation: Performing Lab:[facility], [address] [place] [phone] Notes/Report: [id number] 0730 Urine, Clean Catch Color Urine Yellow Appearance Urine Clear PH 5.5 5.0-9.0 Glucose Urine UA Negative Negative mg/dL Urine Blood Trace Negative Specific [place] - Urine 1.015 1.005-1.025 Urine Protein Negative Neg-Trace mg/dL Urine Ketones Negative Negative mg/dL Nitrite Urine Negative Negative Leukocyte Esterase Urine Moderate (2+) Negative RBC Urine 0-2 0-2 /HPF WBC Urine 0-5 0-5 /HPF Squamous Epithelial Cell Urine 0-2 0-2 /HPF Bacteria Urine None Seen None Seen Hyaline Casts Urine 0-2 0-2 /LPF REASON FOR VISIT yearly fasting labs bun creatine Encounters Encounter Location Date Provider Diagnosis Ruddy Solorio MD [address] [place] [address] [place] [phone] 11/29/2024 Ruddy Solorio Prediabetes R73.09 ; Essential hypertension I10 and Pure hypercholesterolemia E78.00 Assessments Encounter Date Diagnosis (ICD Code) Assessment Notes Treatment Notes Treatment Clinical Notes Section Notes 11/29/2024 Prediabetes (ICD-10 - R73.09) 11/29/2024 Essential hypertensi on (ICD-10 - I10) 11/29/2024 Pure hypercholesterolemia (ICD-10 - E78.00) Plan Of Treatment Next Appt Details Provider Name:Rdudy bunn, 12/07/2025 07:45:00 AM, [address] [place] [address], [address] [place] [address], [phone], Provider Name:Ruddy bunn, 12/14/2025 09:30:00 AM, [address] [place] [address], [address] [place] [address], [phone], Progress Notes * Reena HARDIN: 4 (80 yo F)Acc No.[id number]:11/29/2024 Progress Note Patient: Melia ST Provider: Ben Solorio MD :1945 A ge:79 Y S ex:Female Date:11/29/2024 Address:[address] [place] [address] Subjective: * Chief Complaints: * 1 . Yearly fasting labs bun creatine. * Medical History: Objective: * Vitals: Assessment: * Assessment: 1. P rediabetes - R73.09 (Primary) 2 . E ssential hypertension - I10 ? 3 . P ure hypercholesterolemia - E78.00 Plan: * Treatment: 2. E ssential hypertension L AB: Complete Blood Count Auto Diff (Collection Date & Time - 11/29/2024 07:30 AM) L AB: Comprehensive [place]. Panel Fast (Collection Date & Time - 11/29/2024 07:30 AM) L AB: Lipid Panel (Collection Date & Time - 11/29/2024 07:30 AM) L AB: Microalbumin, Random (Collection Date & Time - 11/29/2024 07:30 AM) L AB: Hemoglobin A1c (Collection Date & Time - 11/29/2024 07:30 AM) L AB: UA ClnCatch+Micro w/rflx Cult (Collection Date & Time - 11/29/2024 07:30 AM) 3. P ure hypercholesterolemia L AB: Complete Blood Count Auto Diff (Collection Date & Time - 11/29/2024 07:30 AM) L AB: Comprehensive [place]. Panel Fast (Collection Date & Time - 11/29/2024 07:30 AM) L AB: Lipid Panel (Collection Date & Time - 11/29/2024 07:30 AM) L AB: Microalbumin, Random (Collection Date & Time - 11/29/2024 07:30 AM) L AB: Hemoglobin A1c (Collection Date & Time - 11/29/2024 07:30 AM) L AB: UA ClnCatch+Micro w/rflx Cult (Collection Date & Time - 11/29/2024 07:30 AM) * Procedure Codes: 3 6415 VENIPUNCT, ROUTINE* * * The named appointment provid er may or may not be the originator of this progress note, and it is not deemed complete until electronically signed by the appointment provider. Sign off status: Pending * Provider: Ben Solorio MD Date: 0 11/29/2024 Generated for Charles varghese/Holly/Shelly on: 1 06/27/2024 11:24 AM EST
--- OUTSIDE RECORDS SUMMARY | 2024-12-12 05:30 | XMS_ITS ---
Author Organization Ruddy Solorio MD Address [address] [place] [phone] Care Team Providers Care Order Packer Name Role Phone HemalathaRuddy rudolph Primary Care Provider Allergies No Known Allergies Results Component Value Reference Range Notes Blood Urea Nitrogen Reviewed date:12/13/2024 12:40:34 PM Interpretation: Performing Lab:[facility], [address] [place] [phone] Notes/Report: Blood Urea Nitrogen 35 9-16 mg/dL Creatinine Reviewed date:12/13/2024 12:39:00 PM Interpretation: Performing Lab:[facility], [address] [place] [phone] Notes/Report: Creatinine 1.23 0.5-1.4 mg/dL Estimated Glomerular Filt Rate 42 Chronic Kidney Disease: Estimated GFR < 60 mL/min/1.73m2 Severe Kidney Disease: Estimated GFR < 15 mL/min/1.73m2 Calcium Reviewed date:12/13/2024 12:40:43 PM Interpretation: Performing Lab:[facility], [address] [facility], [place] [address] Notes/Report: Calcium 10.4 8.4-10.2 mg/dL REASON FOR VISIT comp visit/ must Comp meta Medications Medication SIG (Take, Route, Fr equency, Duration) Notes Start Date End Date Status Simvastatin 20 MG 1 tablet every eveni ng Orally Once a day for 90 days Active Ibuprofen 800 MG 1 tablet with food o r milk Orally Three times a day for 30 day(s) 01/19/2017 Not-Taking Social History Tobacco Use: Social History Observation [...] Signs Blood pressure systolic 152 mm Hg 12/13/19 25 Blood pressure diastolic 56 mm Hg 025 Height 60 in 12/12/2024 Weight 153 lbs 12/12/2024 BMI 29.88 kg/m2 12/12/2024 weight is up 3 pounds since 06-17-24 Encounters Encounter Location Date Provider Diagnosis Ruddy Solorio MD [address] [place] [address] [address] [place], [place] [phone] 12/12/2024 Ruddy Solorio Elevated BUN R79.9 ; Hypercalcemia E83.52 ; Prediabetes R73.09 and Essential hypertension I10 Assessments Encounter Date Diagnosis (ICD Code) Assessment Notes Treatment Notes Treatment Clinical Notes Section Notes 12/12/2024 Elevated BUN (ICD-10 - R79.9) pending labs, will continue to monitor 12/12/2024 Hypercalcemia (ICD-10 - E83.52) going to stop calcium and will repeat in 2 months 12/12/2024 Prediabetes (ICD-10 - R73.09) stable, no need for medication at this time, will continue to monitor 12/12/2024 Essential hypertension (ICD-10 - I10) stable, will continue to monitor Plan Of Treatment Treatment Notes Assessment Notes Elevated BUN pending labs, will c ontinue to monitor Hypercalcemia going to stop calciu m and will repeat in 2 months Prediabetes stable, no need for medication at this time, will continue to monitor Essential hypertension stable, will cont inue to monitor Next Appt Details Provider Name:Ruddy Prado ier, 12/07/2025 07:45:00 AM, [address], [address], [place], [phone], Provider Name:Ruddy Prado ier, 12/14/2025 09:30:00 AM, [address], [address], [place], [phone], Progress Notes * Dave HARDINeDOB: 4 (79 yo F)Acc No.[id number]:12/12/2024 Patient: Melia ST Provider: Ben Solorio MD :1945 A ge:79 Y S ex:Female Date:12/12/2024 Address:[address] [place] [address] [facility] Subjective: * Chief Complaints: * c omp visit/ must Comp meta * HPI: D epression Screening: PHQ-9 L [...] at all, T otal Score 0 . C ommunication Needs: Communication Needs D oes the patient have a hearing impairment N o, D oes the patient have a vision impairment? Y es, I f yes, what is the vision impairment? G lasses, D oes the patient have a cognition impairment? Y es. F all Risk: History H ave you [...] N one. S ymptom(s): patient is a 79 yo female here for review of recent labs and follow up of chronic issues h ere for yearly eval had been bothered with shoulder pain and neck stiffness. is better tgoday. one week ago started to have pain i lower abdomen. walking may bother. * ROS: G eneral/Constitutional: Change in appetite d enies. C hills d enies. F ever d enies. O phthalmologic: Blurred vision d enies. D ischarge d enies. P ain d enies. E NT: Decreased hearing d enies. S ore throat d enies.?Swollen glands d enies. E ndocrine: Cold intolerance d enies. E xcessive thirst d enies. H eat intolerance d enies. W eight loss d enies. R espiratory: Cough d enies. S hortness of breath at rest d enies. S hortness of breath with exertion d enies. W heezing d enies. C ardiovascular: Chest pain at rest d enies. C hest pain with exertion?denies. I rregular heartbeat d enies. S hortness of breath d enies. ? G astrointestinal: Abdominal pain d enies. C hange in bowel habits d enies. D iarrhea d enies. N ausea d enies. R ectal bleeding d enies. V omiting d enies . G enitourinary: Blood in urine d enies. D ifficulty urinating d enies. F requent urination d enies. U rinary incontinence D enies. M usculoskeletal: Painful joints d enies. W eakness d enies. ? S kin: Dry skin d enies. I tching d enies. D enies?Mole(s), changes in moles, new moles or any lesions of concern. D enies P hotosensitivity. R rachael d enies. N eurologic: Dizziness d enies. F ainting d enies. H eadache?denies. * Medical History: * Surgical History: * [...] frequency:, 2-3 cups per day. Children: yes. Community involvements: no. Exercise: no. Home smoke detector use: yes. Living with: family. Marital status: . Occupation: weeks/months/years, retired. Pets: none. Travel outside of the [place]: no. * Medications: T akingSimvastatin 20 MG Tablet 1 tablet every evening Orally Once a day Taking Simvastatin 20 MG Tablet 1 tablet every evening Orally Once a day Not-Taking/PRNIbuprofen 800 MG Tablet 1 tablet with food or milk Orally Three times a day Medication List reviewed and reconciled with the patientNot-Taking/PRN Ibuprofen 800 MG Tablet 1 tablet with food or milk Orally Three times a day Medication List reviewed and reconciled with the patient * Allergies: N .K.D.A.yes[Allergies Verified] Objective: * Vitals: H t: 60, Wt: 153, BMI:29.88, BP:152/56, Repeat BP:130/76, Wt-k.4. weight is up 3 pounds since 06-17-24. * P ast Orders: L ab:Hemoglobin A1c (Order Date - 11/29/2024) (Collection Date & Time - 11/29/2024 07:30 AM) Value Reference Range Hemoglobin A1c % 5.5 <6.0 - % Estimated Average Glucose 111 - mg/dL L ab:UA ClnCatch+Micro w/rflx Cult (Order Date - 11/29/2024) (Collection Date & Time - 11/29/2024 07:30 AM) Value Reference Range Color Urine Yellow - Appearance Urine Clear - PH 5.5 5.0-9.0 - Glucose Urine UA Negative Negative - mg/dL Urine Blood Trace A Negative - Specific [place] - Urine 1.015 1.005-1.025 - Urine Protein [...] Casts Urine 0-2 0-2 - /LPF L ab:Urine Culture (Order Date - 11/29/2024) (Collection Date & Time - 11/29/2024) Value Reference Range Urine Culture < 10,000 cfu/ml - L ab:Lipid Panel (Order Date - 11/29/2024) (Collection Date & Time - 11/29/2024 07:30 AM) Value Reference Range Triglycerides 106 <150 - mg/dL Cholesterol 156 <200 - mg/dL LDL Cholesterol Calculated 88 <100 - mg/dL HDL Cholesterol 47 >40 - mg/dL L ab:Complete Blood Count Auto Diff (Order Date - 11/29/2024) (Collection Date & Time - 11/29/2024 07:30 AM) Value Reference Range White Blood Count 7.3 4.8-10.8 - X10*3/uL Red Blood Count 3.68 L 4.20-5.50 - X10*6/uL Hemoglobin 11.5 L 12.0-16.0 - g/dl Hematocrit 36.2 L 37.0-47.0 - % Mean Corpuscular Volume 98.4 H 80.0-98.0 - fL Mean Corpuscular Hemoglobin 31.3 27.0-33.0 - pg Mean Corpuscular HGB Conc 31.8 31.0-35.0 - g/ dl Red Cell Distribution Width 13.4 11.0-16.0 - % Platelet Count 258 160-400 - X10*3/uL Mean Platelet Volume 10.0 9.4-12.3 - fL Neutrophils Percent Auto 54.6 45-73 - % Imm Gran Pct Auto 0.3 0.0-0.4 - % Lymphocytes Percent Auto 33.0 20-40 - % Monocytes Percent Auto 8.1 2-11 - % Eosinophils Percent Auto 2.2 0-4 - % Basophils Percent Auto 1.8 0-2 - % NRBC Pct Auto 0.0 0.0-0.2 - /100WBC Neutrophils Absolute Auto 4.0 2.0-8.3 - x10* 3/uL Imm Gran Abs Auto 0.02 0.00-0.03 - X10*3/uL Lymphocytes Absolute Auto 2.4 1.2-4.9 - X10* 3/uL Monocytes Absolute Auto 0.6 0.1-1.2 - X10*3/ uL Eosinophils Absolute Auto 0.2 0.0-0.4 - X10* 3/uL Basophils Absolute Auto 0.1 0.0-0.2 - X10*3/ uL NRBC Abs Auto 0.000 0.0-0.012 - X10*3/uL L ab:Microalbumin, Random (Order Date - 11/29/2024) (Collection Date & Time - 11/29/2024 07:30 AM) Value Reference Range Creatinine Urine 86.19 - mg/dL Microalbumin Urine 20.0 - mg/L Microalbum Creatinine Ratio Ur 23.2 <30 - ug/ mg cr * Examination: G eneral Examination: GENERAL APPEARANCE: w ell developed, well nourished, in no acute distress. HEAD: n ormocephalic, atraumatic. EYES: p upils equal, round, reactive to light and accommodation, sclera non-icteric. EARS: n ormal. ORAL CAVITY: m ucosa moist. THROAT: c lear. NECK/THYROID: n abdi supple, full range of motion, no cervical lymphadenopathy, no bruits. SKIN: w arm and dry, no suspicious lesions. HEART: r egular rate and rhythm, S1, S2 normal, no murmurs.? LUNGS: c lear to auscultation bilaterally. BREASTS: N o mass, no lump. ABDOMEN: s oft, nontender, nondistended, bowel sounds present, normal, no organomegaly , no masses palpable, abnormal with a freely reducible umbilical herni.? RECTAL EXAM: s tool guaiac negative, no masses palpable.? FEMALE GENITOURINARY: n ot done. EXTREMITIES: n o clubbing, cyanosis, or edema. NEUROLOGIC: n onfocal, motor strength normal upper and lower extremities, sensory exam intact. Assessment: * Assessment: 1. E levated BUN - R79.9 (Primary) 2 . H ypercalcemia - E83.52 ?3. P rediabetes - R73.09 4 . E ssential hypertension - I10 ? Plan: * Treatment: 2. H ypercalcemia Notes: going to stop calcium and will repeat in 2 months 3. P rediabetes Notes: stable, no need for medication at this time, will continue to monitor 4. E ssential hypertension Notes: stable, will continue to monitor * Procedure Codes: 3 6415 VENIPUNCT, ROUTINE* * * Sign off status: Completed true * Provider: Ben Solorio MD Date: 0 12/12/2024 Generated for Charles varghese/Holly/eTransmitting on: 06/27/2024 11:24 AM EST History and Physical Notes * HPI (History of Present Illness) Category Sub-Category Detail Notes Category Not es Symptom(s) patient is a 79 yo female here for review of recent labs and follow up of chronic issues here for yearly eval had been bothered with shoulder pain and neck stiffness. is better tgoday. one week ago started to have pain i lower abdomen. walking may bother Depression Screening PHQ-9 Little inte rest or [...] way: Not at all Total Score: 0 SDOH Questions SDOH Questions In the past [...] had two or more falls in the year?: No Communication Needs Communication Needs Does the patient have a hearing impairment: No Does the patient have a vision impairmen t?: Yes If yes, what is the vision impairment?: Glasses Does the patient have a cognition impair ment?: Yes Examination Category Sub-Category Detail Notes Category Not es General Examination GENERAL APPEARANCE: well dev eloped, well nourished, in no acute distress HEAD: normocephalic, atrau matic EYES: pupils equal, round, reactive to light and accommodation, sclera non-icteric EARS: normal THROAT: clear NECK/THYROID: neck supple, full ra nge of motion, no cervical lymphadenopathy, no bruits HEART: regular rate and rhy thm, S1, S2 normal, no murmurs LUNGS: clear to auscultatio n bilaterally ABDOMEN: soft, nontender, non distended, bowel sounds present, normal, no organomegaly , no masses palpable, abnormal with a freely reducible umbilical herni NEUROLOGIC: nonfocal, motor stre ngth normal upper and lower extremities, sensory exam intact SKIN: warm and dry, no dario picious lesions EXTREMITIES: no clubbing, cyanosi s, or edema BREASTS: No mass, no lump RECTAL EXAM: stool guaiac negativ e, no masses palpable FEMALE GENITOURINARY: not done ORAL CAVITY: mucosa moist
--- OUTSIDE RECORDS SUMMARY | 2025-02-13 02:00 | XMS_ITS ---
Author Organization Ruddy Solorio MD Address [address] [place] [phone] Care Team Providers Care Airport Attendant Name Role Ruddy Goel Primary Care Provider [phone] Results Component Value Reference Range Notes Calcium Reviewed date:02/13/2025 12:46:48 PM Interpretation: Performing Lab:[facility], [address] [place] [phone] Notes/Report: Calcium 9.5 8.4-10.2 mg/dL REASON FOR VISIT repeat 2 month Calcium Encounters Encounter Location Date Provider Diagnosis Ruddy Solorio MD [address] [place] [phone] 02/13/2025 Ruddy Solorio Hypercalcemia E83.52 Assessments Encounter Date Diagnosis (ICD Code) Assessment Notes Treatment Notes Treatment Clinical Notes Section Notes 02/13/2025 Hypercalcemia (ICD-10 - E83.52) Plan Of Treatment Next Appt Details Provider Name:Ruddy bunn, 12/07/2025 07:45:00 AM, [address], [address], [place], [place], [phone], Provider Name:Ruddy Prado ier, 12/14/2025 09:30:00 AM, [address], [address], [place], [place], [phone], Progress Notes * Nicci HARDINOB: 4 (80 yo F)Acc No.[id number]:02/13/2025 Progress Note Patient: Melia ST Provider: Ben Solorio MD :1945 A ge:79 Y S ex:Female Date:02/13/2025 Address:[address] [place] [address] [facility] Subjective: * Chief Complaints: * 1 . repeat 2 month Calcium. * Medical History: Objective: * Vitals: Assessment: * Assessment: 1. H ypercalcemia - E83.52 (Primary) Plan: * Treatment: * Procedure Codes: 3 6415 VENIPUNCT, ROUTINE* * * The named appointment provid er may or may not be the originator of this progress note, and it is not deemed complete until electronically signed by the appointment provider. Sign off status: Pending * Provider: Ben Solorio MD Date: 0 02/13/2025 Generated for Charles varghese/Holly/Rheasmitting on: 1 06/27/2024 11:25 AM EST
--- OUTSIDE RECORDS SUMMARY | 2025-02-20 08:45 | XMS_ITS ---
Author Organization Ruddy Solorio MD Address [address] [place] [phone] Care Team Providers Care Behavioral Geneticist Name Role Phone LyndseyRuddy Primary Care Provider Allergies No Known Allergies Results Component Value Reference Range Notes Blood Urea Nitrogen Reviewed date:02/20/2025 04:46:19 PM Interpretation: Performing Lab:[facility], [address] [place] [phone] Notes/Report: Blood Urea Nitrogen 26 9-16 mg/dL Creatinine Reviewed date:02/20/2025 04:47:14 PM Interpretation: Performing Lab:[facility], [address] [place] [phone] Notes/Report: Creatinine 1.02 0.5-1.4 mg/dL Estimated Glomerular Filt Rate 52 Chronic Kidney Disease: Estimated GFR < 60 mL/min/1.73m2 Severe Kidney Disease: Estimated GFR < 15 mL/min/1.73m2 REASON FOR VISIT 2 month follow up appt Medications Medication SIG (Take, Route, Fr equency, Duration) Notes Start Date End Date Status Ibuprofen 800 MG 1 tablet with food o r milk Orally Three times a day for 30 day(s) 01/19/2017 Not-Taking Simvastatin 20 MG 1 tablet every eveni ng Orally Once a day for 90 days Active Immunizations Vaccine Route Administration Date Status Comme nts Influenza High Dose IM Intramuscular 02/20/2025 Administer ed Vital Signs Blood pressure systolic 162 mm Hg 02/21/20 25 Blood pressure diastolic 60 mm Hg 025 Height 60 in 02/20/2025 Weight 150 lbs 02/20/2025 BMI 29.29 kg/m2 02/20/2025 weight is down 3 pounds [facility] e 12-12-24 Encounters Encounter Location Date Provider Diagnosis Ruddy Solorio MD [address] [place] [address] [place] [phone] 02/20/2025 Ruddy Solorio Elevated BUN R79.9 ; Essential hypertension I10 and Encounter for administration of vaccine Z23 Assessments Encounter Date Diagnosis (ICD Code) Assessment Notes Treatment Notes Treatment Clinical Notes Section Notes 02/20/2025 Elevated BUN (ICD-10 - R79.9) will continue to monitor 02/20/2025 Essential hypertension (ICD-10 - I10) stable, will continue to monitor 02/20/2025 Encounter for administration of vaccine (ICD-10 - Z23) HD flu vaccine administered Plan Of Treatment Treatment Notes Assessment Notes Elevated BUN will continue to mon itor Essential hypertension stable, will cont inue to monitor Encounter for administration of vaccine HD flu vaccine administered Next Appt Details Provider Name:Ruddy bunn, 12/07/2025 07:45:00 AM, [address] [place] [address], Suite [facility], [place], [phone], Provider Name:Ruddy bunn, 12/14/2025 09:30:00 AM, [address] [place] [address], [place] [address], [place], [place], [phone], Progress Notes * Nicci HARDINOB: 4 (79 yo F)Acc No.[id number]:02/20/2025 Progress Notes Patient: Pham WEINERDavee Provider: Ben Solorio MD :1945 A ge:79 Y S ex:Female Date:02/20/2025 Address:[id number] Subjective: * Chief Complaints: * 2 month follow up appt * HPI: S ymptom(s): patient is a 79 yo female here for 2 month follow up visit. * ROS: G eneral/Constitutional: Denies C hills. D enies F atigue. D enies F ever. D enies H eadache. E NT: Denies S ore throat. R espiratory: Denies C ough. D enies S hortness of breath at rest. D enies S hortness of breath with exertion. G astrointestinal: Denies D iarrhea. D enies N ausea. * Medical History: * Surgical History: * [...] Objective: * Vitals: H t: 60, Wt: 150, BMI:29.29, BP:162/60, Repeat BP:130/78, Wt-k.04. weight is down 3 pounds since 12-12-24. * Examination: G eneral Examination: GENERAL APPEARANCE: a lert, well hydrated, in no distress.? HEAD: n ormocephalic. SKIN: g ood turgor. HEART: r egular rate and rhythm, no murmurs, rubs, gallops.? LUNGS: n o wheezes, rales, rhonchi, good air movement, clear to auscultation bilaterally. Assessment: * Assessment: 1. E ssential hypertension - I10 (Primary) 2 . E levated BUN - R79.9 ? 3 . E ncounter for administration of vaccine - Z23 Plan: * Treatment: 2. E levated BUN Notes: will continue to monitor 3. E ncounter for administration of vaccine L AB: Blood Urea Nitrogen (Collection Date & Time - 02/20/2025 01:45 PM) L AB: Creatinine (Collection Date & Time - 02/20/2025 01:45 PM) Notes: HD flu vaccine administered * Immunizations: Influenza High Dose : 0.5 mL (Dose No:1) (Route: Intramuscular) given by Pearl Bauer , Office Staff on Left Deltoid * Procedure Codes: 9 0662 FLU VACC PRSV FREE INC [id number] ADMN FLU VAC NO FEE SCHED SAME DAY * * Sign off status: Completed true * Provider: Ben Solorio MD Date: 0 02/20/2025 Generated for Charles varghese/Holly/eTmelinasmitting on: 1 06/27/2024 11:23 AM EST History and Physical Notes * HPI (History of Present Illness) Category Sub-Category Detail Notes Category Not es Symptom(s) patient is a 79 yo female here for 2 month follow up visit Examination Category Sub-Category Detail Notes Category Not es General Examination GENERAL APPEARANCE: alert, w ell hydrated, in no distress HEAD: normocephalic HEART: regular rate and rhy thm, no murmurs, rubs, gallops LUNGS: no wheezes, rales, r honchi, good air movement, clear to auscultation bilaterally SKIN: good turgor
--- NOTE | ~2025-04-27 | MM_ITS ---
EXAMINATION: MM SCREENING DIGITAL BREAST TOMOSYNTHESIS, BILATERAL CLINICAL INFORMATION: Screening. Asymptomatic. COMPARISON: Comparison made to multiple prior, most recent April 21, 2024, and most remote October 10, 2016. TECHNIQUE: Digital breast tomosynthesis is performed in mediolateral oblique and craniocaudal views along with computer-aided detection (CAD). Synthesized 2D images are generated from the tomosynthesis. FINDINGS: BREAST COMPOSITION: There are scattered areas of fibroglandular density. BILATERAL BREASTS: No significant masses, suspicious calcifications or other abnormalities are seen in either breast. MM/MM tomosynthesis screening BI IMPRESSION: BILATERAL BREASTS: Negative, no mammographic evidence of malignancy. Normal interval follow-up is recommended in 12 months. ASSESSMENT: BI-RADS: Category 1: Negative RECOMMENDATION: Routine annual mammography screening. FOLLOW-UP: 1 year F/U This examination should not preclude the clinical evaluation of a suspicious palpable abnormality. This patient's information was entered into a reminder system with a target due date for their next mammogram. Electronically signed by: Geimni Valdez MD 04/30/2025 05:57 PM [facility]
--- OUTSIDE RECORDS SUMMARY | 2025-04-27 11:25 | XMS_ITS | Patient Health Record ---
Author Organization Ruddy Solorio MD Address [address] [place] [phone] Care Team Providers Care Control System Computer Scientist Name Role Phone Ruddy Solorio Primary Care Provider [phone] Allergies No Known Allergies Results Component Value Reference Range Notes Liver Panel Reviewed date:06/10/2024 01:57:13 PM Interpretation: Performing Lab:[address] [phone] Notes/Report: Bilirubin Total 0.4 0.0-1.0 mg/dL Bilirubin Direct 0.1 0.0-0.5 mg/dL Aspartate Amino Transferase 26 5-31 U/L Alanine Aminotransferase 18 0-31 U/L Total Protein 6.6 6.5-8.0 g/dL Albumin Level 3.9 3.5-5.0 g/dL Alkaline Phosphatase 54 39-117 U/L Blood Urea Nitrogen Reviewed date:06/17/2024 03:11:51 PM Interpretation:see back 06-17-24 Performing Lab:[address] [place] [address] Notes/Report: Blood Urea Nitrogen 26 9-16 mg/dL Creatinine Reviewed date:06/10/2024 01:56:17 PM Interpretation: Performing Lab:[facility], [address] [place] [phone] Notes/Report: Creatinine 1.29 0.5-1.4 mg/dL Estimated Glomerular Filt Rate 40 Chronic Kidney Disease: Estimated GFR < 60 mL/min/1.73m2 Severe Kidney Disease: Estimated GFR < 15 mL/min/1.73m2 Calcium Reviewed date:06/10/2024 01:55:49 PM Interpretation: Performing Lab:[address] [phone] Notes/Report: Calcium 10.0 8.4-10.2 mg/dL Lipid Panel with Reflex Reviewed date:06/10/2024 02:59:30 PM Interpretation: Performing Lab:[facility], [address] [place] [phone] Notes/Report: Triglycerides 118 <150 mg/dL Desirable Triglyceride: [...] ff Reviewed date:11/29/2024 12:32:06 PM Interpretation: Performing Lab:[address] [phone] Notes/Report: White Blood Count 7.3 4.8-10.8 X10*3/uL [...] NRBC Abs Auto 0.000 0.0-0.012 X10*3/uL Comprehensive Robbins. Panel Fa st Reviewed date:12/13/2024 11:00:29 AM Interpretation:12-12-2024 Performing Lab:[facility], [address] [place] [phone] Notes/Report: Sodium 144 135-145 mmol/L Potassium 4.1 [...] Panel Reviewed date:11/29/2024 12:29:46 PM Interpretation: Performing Lab:[address] [phone] Notes/Report: Triglycerides 106 <150 mg/dL Desirable Triglyceride: [...] Random Reviewed date:11/29/2024 12:29:56 PM Interpretation: Performing Lab:[address] [address] Notes/Report: Creatinine Urine 86.19 Microalbumin Urine 20.0 Microalbum/Creatinine Ratio Ur 23.2 <30 ug/mg cr Albumin/Creatinine Ratio Reference Ranges: Normal: < 30 ug/mg creatinine Microalbuminuria: 30 - 300 ug/mg creatinine Clinical Albuminuria: > 300 ug/mg creatinine Hemoglobin A1c Reviewed date:11/29/2024 12:26:29 PM Interpretation: Performing Lab:[facility], [address] [place] [phone] Notes/Report: Hemoglobin A1c % 5.5 <6.0 % [...] average glucose, using the formula of the O2V-Srtzpxr Average Glucose study (ADAG), Diabetes Care, Vol.31,#8, Jan. 2007 UA ClnCatch+Micro w/rflx Cul t Reviewed date:11/29/2024 12:44:00 PM Interpretation: Performing Lab:[address] [phone] Notes/Report: [id number] Urine, Clean Catch Color Urine Yellow Appearance Urine Clear PH 5.5 5.0-9.0 Glucose Urine UA Negative Negative mg/dL Urine Blood Trace Negative Specific [place] - Urine 1.015 1.005-1.025 Urine Protein Negative Neg-Trace mg/dL Urine Ketones Negative Negative mg/dL Nitrite Urine Negative Negative Leukocyte Esterase Urine Moderate (2+) Negative RBC Urine 0-2 0-2 /HPF WBC Urine 0-5 0-5 /HPF Squamous Epithelial Cell Urine 0-2 0-2 /HPF Bacteria Urine None Seen None Seen Hyaline Casts Urine 0-2 0-2 /LPF Calcium Reviewed date:02/13/2025 12:46:48 PM Interpretation: Performing Lab:[facility], [address] [place] [phone] Notes/Report: Calcium 9.5 8.4-10.2 mg/dL Blood Urea Nitrogen Reviewed date:12/13/2024 12:40:34 PM Interpretation: Performing Lab:[address] [phone] Notes/Report: Blood Urea Nitrogen 35 9-16 mg/dL Creatinine Reviewed date:12/13/2024 12:39:00 PM Interpretation: Performing Lab:[address] [phone] Notes/Report: Creatinine 1.23 0.5-1.4 mg/dL Estimated Glomerular Filt Rate 42 Chronic Kidney Disease: Estimated GFR < 60 mL/min/1.73m2 Severe Kidney Disease: Estimated GFR < 15 mL/min/1.73m2 Calcium Reviewed date:12/13/2024 12:40:43 PM Interpretation: Performing Lab:[facility], [address] [place] [phone] Notes/Report: Calcium 10.4 8.4-10.2 mg/dL Blood Urea Nitrogen Reviewed date:02/20/2025 04:46:19 PM Interpretation: Performing Lab:[facility], [address] [place] [phone] Notes/Report: Blood Urea Nitrogen 26 9-16 mg/dL Creatinine Reviewed date:02/20/2025 04:47:14 PM Interpretation: Performing Lab:[facility], [address] [place] [phone] Notes/Report: Creatinine 1.02 0.5-1.4 mg/dL Estimated Glomerular Filt Rate 52 Chronic Kidney Disease: Estimated GFR < 60 mL/min/1.73m2 Severe Kidney Disease: Estimated GFR < 15 mL/min/1.73m2 Hold Gold Reviewed date:06/10/2024 11:17:03 AM Interpretation: Performing Lab:[facility], [address] [place] [phone] Notes/Report: Jean Santiago See Note Specimen held untested for 24 hours; Call to request Chemistry testing. Urine Culture Reviewed date:11/30/2024 07:41:32 PM Interpretation: Performing Lab:[facility], [address] [place] [phone] Notes/Report: Urine Culture Report Result Urine Culture [...] Administered Flu Vaccine IM Intramuscular 03/01/2013 Administered Luis miller Prevnar 13 IM Intramuscular 08/22/2013 Administered Flu Vaccine IM Intramuscular 02/17/2014 Administered CATALINA MILLER Fluarix Quadrivalent Unknown 02/17/2014 Administered MAX Shingles Unknown 02/27/2013 Administered Flu Vaccine IM Intramuscular 03/09/2015 Administered pt re cieved high dose flu vaccine at [facility] Flu Vaccine IM Intramuscular 03/12/2016 Administered Fluarix Quadrivalent Unknown 03/30/2017 Administered Max PPSV23 (Pnemovax) IM Intramuscular 10/19/2017 Administered Flu Vaccine IM Intramuscular 02/22/2018 Administered Pt wa s given the high dose flu vaccine at [facility]. Fluarix Quadrivalent Unknown 03/14/2019 Administered Max Influenza High Dose Unknown 03/06/2020 Administered Velvet oatesashely Covid Vaccine Unknown 09/12/2020 Administered Ryder Soler [...] Status W/U Status Risk Notes Problem Hypercalcemia (09098094) Hypercalcemia (E83.52) Active confirmed Problem 394661691 Osteopenia (M85.80) Active confirmed Problem 13115451 Essential hypert ension (I10) Active confirmed Problem 8019773 Prediabetes (R73.09) Active confirmed Problem 487405179 History of hemat uria (Z87.448) Active confirmed Problem 03488613 Sciatica of left side (M54.32) Active confirmed Problem Sciatica (14298669) Right sided sciatica (M54.31) Active confirmed Problem 992100106 Pure hypercholesterolemia (E78.00) Active confirmed Vital Signs [...] Ruddy Solorio MD [address] [place] [id number] 06/10/2024 Ruddy Solorio Essential hypertensi on I10 ; Hypercalcemia E83.52 and Pure hypercholesterolemia E78.00 Ruddy Solorio MD [address] [place] [id number] 11/29/2024 Ruddy Solorio Prediabetes R73.09 ; Essential hypertension I10 and Pure hypercholesterolemia E78.00 Ruddy Solorio MD [address] [place] [id number] 02/13/2025 Ruddy Solorio Hypercalcemia E83.52 Ruddy Solorio MD [address] [place] [id number] 06/17/2024 Ruddy Solorio Hypercalcemia E83.52 ; Elevated serum creatinine R79.89 and Vaccine counseling Z71.85 Ruddy Solorio MD [address] [place] [id number] 12/12/2024 Ruddy Solorio Elevated BUN R79.9 ; Hypercalcemia E83.52 ; Prediabetes R73.09 and Essential hypertension I10 Ruddy Solorio MD [address] [place] [id number] 02/20/2025 Ruddy Solorio Elevated BUN R79.9 ; Essential hypertension I10 and Encounter for administration of vaccine Z23 Ruddy Solorio MD [address] [place] [id number] 11/21/2024 Ruddy Bombardier Pure hypercholestero lemia E78.00 Assessments Encounter Date [...] calcium and will repeat in 2 months 02/20/2025 Elevated BUN (ICD-10 - R79.9) will continue to monitor 02/20/2025 Essential hypertensi on (ICD-10 - I10) stable, will continue to monitor 11/21/2024 Pure hypercholesterolemia (ICD-10 - E78.00) 06/10/2024 Pure hypercholesterolemia (ICD-10 - E78.00) 11/29/2024 Essential hypertensi on (ICD-10 - I10) 06/17/2024 Vaccine counseling (ICD-10 - Z71.85) discussed need for shingles and pneumovax 12/12/2024 Prediabetes (ICD-10 - R73.09) stable, no need for medication at this time, will continue to monitor 02/20/2025 Encounter for administration of vaccine (ICD-10 - Z23) HD flu vaccine administered 11/29/2024 Pure hypercholesterolemia (ICD-10 - E78.00) 12/12/2024 [...] Provider Name:Ruddy Prado ier, 12/07/2025 07:45:00 AM, [address] [place] [address], [address], [place], [place], [phone], Provider Name:Ruddy Prado ier, 12/14/2025 09:30:00 AM, [address] [place] [address], [address], [place], [place], [id number], Insurance Providers Payer Name Payer Address Payer Phone Subscriber Number Group Number Insured Name Patient Relationship to Insured Coverage Start Date Coverage End Date [employer] [address] [place] [address] [id number] Melia Hardin Self - patient is the insured [employer] OF [facility] [address] [place] [phone] [id number] Melia Hardin Self - patient is the insured Medical (General) History Medical History History ICD Code hematuria work up colonoscopy 2005 due in 10 y ears; colonoscopy w/CT Colonography done by Dr. Day 08/24/17 Hysterectomy 12-27-1991 Surgical History Surgery Date(Month/Year) Total Hysterctomy and Appendectomy 1992
== END 2025-04-27 09:09 | disposition home or self-care (01) ==
LOC: HO.MAMMO 09:08
PROVIDERS: PCP Internal Medicine; Visit Provider Internal Medicine
DX: Z12.31 Encounter for screening mammogram for malignant neoplasm of breast (principal)
CPT/HCPCS: 77063; 77067

== ENCOUNTER → 2025-04-27 09:30 | Outpatient (BNV) | payer MEDICARE, SELFPAY | PROVIDERS: PCP Internal Medicine; Visit Provider Radiology Body Imaging | DX: Z12.31 Encounter for screening mammogram for malignant neoplasm of breast (principal) | CPT/HCPCS: 77063; 77067 ==